=== PATIENT | male | born 1950 | race Caucasian/White ===

== ENCOUNTER 2024-01-12 13:39 | Emergency (ER) | payer MEDICARE, OTHER, SELFPAY ==
[2024-01-12 13:42] VITALS: BP 115/64
[2024-01-12 14:00] LABS: % Basophils 0.9 % (0-2); % Eosinophils 1.7 % (0-6); % Immature Granulocytes 0.4 % (0-0.5); % Lymphocytes 18.6 % (20.5-51.1); % Monocytes 19.9 % (1.7-9.3); % Neutrophils 58.5 % (42.2-75.2); Absolute Eosinophils 0.1 10^3/uL (0-0.7); Absolute Lymphocytes 0.9 10^3/uL (1.2-3.4); Absolute Monocytes 0.9 10^3/uL (0.1-0.6); Absolute Neutrophils 2.7 10^3/uL (1.4-6.5); Hemoglobin 8.5 g/dL (13.0-18.0); Mean Corp Hgb Conc. 32.7 g/dL (33.0-37.0); Mean Corpuscular Hgb 28.4 pg (27.0-31.0); Mean Platelet Volume 9.5 fL (7.4-10.4); Nucleated Red Blood Cells % 0 % (-); Platelet Count 110 10^3/uL (130-400); Red Blood Cell Count 2.99 10^6/uL (4.70-6.10); Red Cell Dist. Width 16.7 % (11.5-14.5); White Blood Cell Count 4.6 10^3/uL (4.8-10.8)
[2024-01-12 14:15] LABS: Ammonia 26 umol/L (9-30)
[2024-01-12 14:22] LABS: ALT (SGPT) 23 U/L (0-50); AST (SGOT) 69 U/L (17-59); Albumin 2.3 g/dl (3.5-5.0); Alkaline Phosphatase 225 U/L (38-126); Blood Urea Nitrogen 18 mg/dl (9-20); Carbon Dioxide 31 mmol/L (22-30); Chloride 99 mmol/L (98-107); Glucose 232 mg/dl (70-99); Potassium 3.5 mmol/L (3.5-5.1); Sodium 132 mmol/L (135-145); Total Bilirubin 2.1 mg/dl (0.2-1.3); Total Protein 5.6 g/dl (6.3-8.2); eGFR > 60.00
[2024-01-12 16:11] VITALS: BP 102/53
--- NOTE | 2024-01-12 16:12 | ED.GENMED ---
History of Present Illness
General
Chief Complaint: Change in Mental Status
Source: patient
Exam Limitations: none
Time Seen by Provider: 01/12/24 15:57
History of Present Illness
History of Present Illness:
See MDM
Past History
Past History
ED Past Medical History: GERD, HTN and NIDDM
ED Past Surgical History: Orthopedic
Social History
Tobacco: Non-smoker
Alcohol: Occasional
Drug: None
Personal:
Living: with family
Employment: Retired
Family History
Family History: Negative Early CAD
Phy Exam
Physical Exam
Physical Exam:
See MDM
Course
Orders/Labs/Results
Orders:
Orders
01/12/24 13:54
Ammonia Urgent
CMP [Comprehensive Metabolic Panel] Urgent
Complete Blood Count/With Diff Urgent
01/12/24 16:07
CT Head W/o Iv Contrast Urgent
Comment:
Reason For Exam: altered
US Abdomen Limited Urgent
Comment:
Reason For Exam: Abd distention, hx ascites
01/12/24 16:11
0.9% Sodium Chloride 1000 ml [Nss] 1,000 ml IV BOLUS
01/12/24 16:19
PTT Urgent
Prothrombin Time Urgent
01/12/24 17:11
Urinalysis Reflex To Culture Urgent
Date Specimen was Collected: 01/12/24
Time Specimen was Collected: 16:39
Abnormal Lab Results
01/12/24 01/12/24 01/12/24
13:54 16:19 17:11
WBC 4.6 L 10^3/uL
(4.8-10.8)
RBC 2.99 L 10^6/uL
(4.70-6.10)
Hgb 8.5 L g/dL
(13.0-18.0)
Hct 26.0 L %
(39.0-52.0)
MCHC 32.7 L g/dL
(33.0-37.0)
RDW 16.7 H %
(11.5-14.5)
Plt Count 110 L 10^3/uL
(130-400)
Absolute Lymphs (auto) 0.9 L 10^3/uL
(1.2-3.4)
Absolute Monos (auto) 0.9 H 10^3/uL
(0.1-0.6)
Lymphocytes % 18.6 L %
(20.5-51.1)
Monocytes % 19.9 H %
(1.7-9.3)
PT 19.0 H Sec
(11.4-14.6)
APTT 52.5 H Sec
(23.4-35.0)
Sodium 132 L mmol/L
(135-145)
Carbon Dioxide 31 H mmol/L
(22-30)
Glucose 232 H mg/dl
(70-99)
Calcium 8.0 L mg/dl
(8.4-10.2)
Total Bilirubin 2.1 H mg/dl
(0.2-1.3)
AST 69 H U/L
(17-59)
Alkaline Phosphatase 225 H U/L
(38-126)
Total Protein 5.6 L g/dl
(6.3-8.2)
Albumin 2.3 L g/dl
(3.5-5.0)
Urine Urobilinogen 2+ A
(Neg - 1+)
01/12/24 13:54
01/12/24 13:54
Vital Signs
Initial and Last Documented VS:
Initial Vital Signs
Temp Pulse Resp BP Pulse Ox
98.4 F 91 18 115/64 94
07/26/24 13:42 01/12/24 13:42 01/12/24 13:42 01/12/24 13:42 01/12/24 13:42
Last Documented Vital Signs
Temp Pulse Resp BP Pulse Ox
98.4 F 91 18 102/53 96
01/12/24 13:42 01/12/24 13:42 01/12/24 13:42 01/12/24 16:11 01/12/24 16:23
MDM/Problems Addressed
Differential Diagnosis Includes:
HPI and MDM Narrative:
73-year-old male presenting with family for evaluation of altered mental status. They have noticed over the past several weeks that he is more tired than normal. He has had increase in visual hallucinations. was initially concerned could
have an elevated ammonia level given his history of [place]. I discussed that he has lab abnormalities but they appear to be chronic for him. Ammonia within normal limits. Given his ongoing issues, seen CT head and urinalysis. I noticed that his
abdomen is distended. It is however nontender. He is afebrile. He has had paracentesis in the past most recently 1 week ago.
indicates that he has not been sleeping well. I discussed that his large ascites is pushing on his diaphragm and likely causing decreased oxygenation due to shallow breaths. I discussed that his altered mental status could be related to this.
He has no clinical evidence of spontaneous bacterial peritonitis
Physical exam
General: Well appearing and non-toxic
HEENT: protecting airway. Dry mucous membranes
Neck: supple
CV: No evidence of cyanosis
Resp: No accessory muscle use
Abd: Distended but nontender
Extremities: No deformities. No leg edema
Neuro: alert
Psych: Normal affect
Skin: Intact
Problems Addressed including Acute and Chronic Conditions affecting care:
1. Altered mental status
Acuity: acute
Prognosis: stable
Details: Likely in the setting of his ongoing medical issues and worsening ascites. Will obtain CT head and urinalysis. Will have IR evaluate for paracentesis
Updates
Throughout his stay in the emergency department, patient has remained well-appearing nontoxic. Family believes this could be age-related but I did discuss my concern for his reaccumulated ascites. Case discussed with interventional radiology. He
has paracentesis does not appear to be emergent. They will reach out to set up of outpatient follow-up appointment. Family comfortable with this plan.
Differential Diagnosis (but not limited to): Ascites, urinary tract infection, metabolic encephalopathy
Testing considered:
Drug therapy (if applicable): OTC meds, please see d/c instruction regarding Rx drugs
Amount and/or Complexity of Data Reviewed
Clinical info obtained from: Patient and
External data reviewed: N/A
Labs I independently reviewed (but not limited to): White blood cell count normal, elevated creatinine and bilirubin which are chronic. Low albumin
Radiology: The CT scan was personally and independently reviewed. In addition, official CT report reviewed.
Pulse Ox: not hypoxic
EKG independently reviewed: N/A
Commercial Credit Analyst: N/A
Critical Care: N/A
Risk of Complication:
Social Determinants of health: Good social support
Discussed with other providers: Interventional radiology
Escalation of Care includes Admit/Obs: After being observed in the Emergency Department, pt stable for discharge.
Occasional wrong word or 'sound a like' substitutions may have occurred due to the inherent limitations of voice recognition software. Read the chart carefully and recognize, using context, where substitutions have occurred.
*Critical Care Note
Total Time (30-74mins, 75-104mins- exclusive of procedures): Not Applicable
ED Attending Note
-
Portions of this chart may have been created with voice recognition software.� Occasional wrong word or��sound alike� substitutions may have occurred due to the inherent limitations of voice recognition software.
Discharge Plan
Departure
Patient Disposition: Home (Routine Discharge)
Date of Disposition: 01/12/24
Time of Disposition: 18:44
Patient with high blood pressure during this ER visit?: No
Discharge Problem:
Altered mental status
Prescriptions:
No Action
omeprazole 20 MG capsule,delayed release(DR/EC)
20 mg PO DAILY
pioglitazone 15 MG tablet
15 mg PO DAILY
tamsulosin 0.4 mg Capsule
0.4 mg PO DAILY
magnesium 250 mg Tablet
250 mg PO DAILY
metoprolol succinate [Toprol XL] 25 mg tablet extended release 24 hr
25 mg PO DAILY Qty: 90 5RF
aspirin 81 mg tablet,chewable
81 mg PO DAILY Qty: 1 0RF
spironolactone 25 mg tablet
25 mg PO DAILY Qty: 1 0RF
rosuvastatin 20 mg tablet
20 mg PO DAILY
furosemide 40 mg tablet
80 mg PO DAILY
furosemide 40 mg tablet
40 mg PO DAILY@1500
ferrous sulfate 325 mg (65 mg iron) tablet
325 mg PO DAILY
cholestyramine (with sugar) 4 gram powder in packet
1 ea PO BID
Xifaxan 550 mg Tablet
550 mg PO BID Qty: 60 0RF
lactulose 20 gram/30 mL solution
20 g PO TID Qty: 1200 0RF
Referrals:
Murphy Ríos DO [Family Provider] -
Activity Restrictions/Additional Instructions:
As we discussed, it is not certain what is causing the increased confusion. The blood work appears to be unchanged from prior and the CT of his head is negative. There is no evidence of urinary tract infection either. I am concerned that fluid
has reaccumulated so quickly. Interventional radiology is aware that you were here today. They will reach out to you this week to set up an appointment for another paracentesis.
Please return for any worsening symptoms.
You may return at any time if you have further concerns.
Please follow up with your doctor at the first available appointment, preferably this week.
Thank you for choosing [facility].
Interventions
Interventions:
*Risk Screen - Suicide Last Done: 01/12/24 16:23
*General Assessment Last Done: 01/12/24 13:45
*Neglect/Abuse Screening Last Done: 01/12/24 16:23
ED- Fall Risk Assessment Last Done: 01/12/24 16:23
*ED COVID-19 Vaccine History Last Done: 01/12/24 13:42
ED- Pulmonary Assessment Last Done: 01/12/24 16:23
ED-Psychological Assessment Last Done: 01/12/24 16:28
ED- Neurological Assessment Last Done: 01/12/24 16:23
ED- Cardiac Assessment Last Done: 01/12/24 16:23
ED Swallowing Screen Last Done: 01/12/24 16:23
Discharge Date and Time
Print Language: LAO
[2024-01-12] MEDS: NSS 1000 IV (16:21)
[2024-01-12 16:22] VITALS: BMI 32.9
[2024-01-12 16:36] LABS: INR 1.61
[2024-01-12 16:37] LABS: APTT 52.5 Sec (23.4-35.0)
[2024-01-12 17:11] VITALS: BP 114/53
[2024-01-12 17:26] LABS: Urine Albumin Negative (Neg - Trace); Urine Bilirubin Negative (Negative); Urine Character Clear (Clear); Urine Color Yellow; Urine Glucose Negative (Negative); Urine Ketone Negative (Negative); Urine Leukocyte Negative (Negative); Urine Nitrite Negative (Negative); Urine Occult Blood Negative (Negative); Urine Urobilinogen 2+ (Neg - 1+)
[2024-01-12 18:11] VITALS: BP 105/51
== END 2024-01-12 19:01 | disposition home or self-care (01) ==
LOC: EMR 13:39
PROVIDERS: Student in an Organized Health Care Education/Training Program; EMERGENCY PHYSICIAN Student in an Organized Health Care Education/Training Program; FAMILY PHYSICIAN Family Medicine
DX: R41.82 Altered mental status, unspecified (principal); K21.9 Gastro-esophageal reflux disease without esophagitis; I10 Essential (primary) hypertension; E11.9 Type 2 diabetes mellitus without complications
CPT/HCPCS: 99284; 96360; 70450; 76705; 80053; 81003; 82140; 85025; 85610; 85730

== ENCOUNTER 2024-01-14 17:20 | Inpatient (IN) | payer MEDICARE, OTHER, SELFPAY ==
[2024-01-14] VITALS (7 sets, daily range): BP systolic 91–109; BP diastolic 49–80; BMI 32.8; BMI 31.5
--- NOTE | 2024-01-14 14:10 | ED.GENMED ---
History of Present Illness
General
Chief Complaint: Change in Mental Status
Time Seen by Provider: 01/14/24 14:10
History of Present Illness
History of Present Illness:
HPI: The patient presents with confusion ongoing and worsening over the period of months. The patient was seen here 2 days ago with only some mild confusion. Family states that his confusion dramatically worsened over the past 48 hours. There has
been no new trauma. is also concerned of his low albumin level the other day. Family is also concerned the patient may require paracentesis as his abdominal distention has been worsening
EXAM:
GENERAL: The patient appears somewhat chronically ill and is encephalopathic
HEENT: Moist oral mucosa, very minimal scleral icterus noted.
CARDIOVASCULAR: No murmurs, normal heart rate, regular rhythm, No chest wall tenderness
PULMONARY: No respiratory distress, breath sounds are clear and equal
ABDOMEN: Soft with no peritoneal signs, no tenderness however moderate distention is noted however I would not characterize this as tense
NEUROLOGIC: Good strength all extremities, no coordination deficits
PSYCHIATRIC: The patient has limited insight and judgment. He does not understand why he is here. He thinks it is January and knows he is at [facility]'�does not realize he is at [facility].
EXTREMITIES: Nontender, no edema, moves all extremities equally
SKIN: Some areas of ecchymosis noted
TIME OF INITIAL ENCOUNTER: 2:15 PM
NUMBER AND COMPLEXITY OF PROBLEMS ADDRESSED AT THE ENCOUNTER
� Chronic conditions affecting care: BELTRAN, aortic stenosis, high blood pressure, hyperlipidemia, diabetes, skin cancer
� Acute Exacerbation and/or Progression of Chronic Illness: This is a subacute but worsening
� Differential Diagnosis includes: Hepatic encephalopathy, anemia, electrolyte abnormality (has been hyponatremic in the past)
AMOUNT AND/OR COMPLEXITY OF DATA TO BE REVIEWED AND ANALYZED
� I performed an independent evaluation of and my interpretation is:
EKG: Sinus 78, IVCD, QRS prolonged
CT:
X-rays:
Laboratory Studies: Potassium 2.9, ammonia normal, hemoglobin 8.2
Other:
� Review of other/old records: The patient was seen here admitted with increased ammonia level in March 2023. MRI brain from 2021 did not show any sign for NPH
� Clinical information was obtained by an independent historian: I spoke to family at bedside including
� Prescriptions/Medications Considered but not given:
� Further testing considered but not performed: Considered CT of the brain however the CT of the brain from 2 days ago was relatively unremarkable.
RISK OF COMPLICATIONS AND/OR MORBIDITY OR MORTALITY OF PATIENT MANAGEMENT
� Social determinants of health affecting care: Lives at home
� Discussion with other providers: I discussed case with Dr. Neal who is not available today for paracentesis. I spoke to Dr. Peterson.
� Escalation of care including admission/observation vs risk of discharge considered: The patient presents with increasing confusion. His ammonia level was normal 2 days ago. Family states he has been compliant with the
lactulose and Xifaxan. He has been having increasing ascites as well in the setting of low albumin. Family also concerned of dementia but knows they will have trouble getting an appointment in the near future.
#1 acute on chronic confusion rapidly worsening in the setting of BELTRAN. Has never been seen by neurology and family is requesting neurology. No evidence of UTI based on studies 2 days ago
#2 heme positive stool with hemoglobin of 8.5 two days ago down from 12.5 in March 2023. However, the patient has had hemoglobins at [place] in the 8 range fairly recently according to . His INR was 1.62 days ago.
#3 worsening ascites�IR not available for paracentesis today; low albumin level
#4 hypokalemia�I have ordered IV and oral replacement and have also ordered magnesium
Past History
Past History
ED Past Medical History: GERD, HTN and NIDDM
ED Past Surgical History: Orthopedic
Social History
Tobacco: Non-smoker
Alcohol: Occasional
Drug: None
Personal:
Living: with family
Employment: Retired
Family History
Family History: Negative Early CAD
Phy Exam
Physical Exam
Physical Exam:
See HPI
Course
Orders/Labs/Results
Orders:
Orders
01/14/24 14:12
0.9% Sodium Chloride 500 ml [Nss] 500 ml IV BOLUS
01/14/24 14:37
Ammonia Urgent
Complete Blood Count/With Diff Urgent
Manual Differential Urgent
01/14/24 14:43
Type+Screen Urgent
01/14/24 14:51
Urinalysis Reflex To Culture Urgent
Date Specimen was Collected: 01/14/24
Time Specimen was Collected: 14:46
01/14/24 15:15
Basic Metabolic Panel Routine
[id number] Routine
Magnesium Routine
Comment: ADD
01/14/24 15:20
Pantoprazole [Protonix IV] 40 mg IV NOW STA
01/14/24 15:59
Potassium Chloride [KCl] 40 meq PO NOW STA
01/14/24 16:01
Add On- LAB Urgent
Tests Added?: magnesium
01/14/24 16:03
Add On- LAB Routine
Tests Added?: magnesium
ECG [Electrocardiogram (*1)] Urgent
Reason for Study: Other
Other Reason for Exam: hypokalemia
EKG- Treatment ONCE
01/14/24 16:13
Potassium Chloride [KCl] 40 meq 0.9% Sodium Chloride 250 ml [Nss] 250 ml IV NOW
Abnormal Lab Results
01/14/24 01/14/24 01/14/24
14:37 14:51 15:15
WBC 4.4 L 10^3/uL
(4.8-10.8)
RBC 2.91 L 10^6/uL
(4.70-6.10)
Hgb 8.2 L g/dL
(13.0-18.0)
Hct 24.6 L %
(39.0-52.0)
RDW 16.7 H %
(11.5-14.5)
Plt Count 98 L 10^3/uL
(130-400)
Lymphocytes (Manual) 18 L %
(20-51)
Monocytes (Manual) 20 H %
(2-9)
Sodium 131 L mmol/L
(135-145)
Potassium 2.9 L mmol/L
(3.5-5.1)
Carbon Dioxide 31 H mmol/L
(22-30)
Glucose 140 H mg/dl
(70-99)
Calcium 7.9 L mg/dl
(8.4-10.2)
Total Bilirubin 2.0 H mg/dl
(0.2-1.3)
Direct Bilirubin 0.7 H mg/dl
(0.0-0.4)
AST 68 H U/L
(17-59)
Alkaline Phosphatase 218 H U/L
(38-126)
Total Protein 5.4 L g/dl
(6.3-8.2)
Albumin 2.2 L g/dl
(3.5-5.0)
Urine Urobilinogen 3+ A
(Neg - 1+)
01/14/24 14:37
01/14/24 15:15
Vital Signs
Initial and Last Documented VS:
Initial Vital Signs
Temp Pulse Resp BP Pulse Ox
98.7 F 79 18 91/50 96
01/14/24 13:41 01/14/24 13:41 01/14/24 13:41 01/14/24 13:41 01/14/24 13:41
Last Documented Vital Signs
Temp Pulse Resp BP Pulse Ox
98.7 F 79 25 109/50 95
01/14/24 13:41 01/14/24 15:45 01/14/24 15:45 01/14/24 15:01 01/14/24 15:45
*Critical Care Note
Total Time (30-74mins, 75-104mins- exclusive of procedures): Not Applicable
ED Attending Note
-
Portions of this chart may have been created with voice recognition software.� Occasional wrong word or��sound alike� substitutions may have occurred due to the inherent limitations of voice recognition software.
Discharge Plan
Departure
Patient Disposition: Admit
Date of Disposition: 01/14/24
Time of Disposition: 16:01
Presentation/result/management discussed w/ accepting MD/DO: Hospitalist
Discharge Problem:
Acute confusion
Prescriptions:
No Action
omeprazole 20 MG capsule,delayed release(DR/EC)
20 mg PO DAILY
pioglitazone 15 MG tablet
15 mg PO DAILY
tamsulosin 0.4 mg Capsule
0.4 mg PO DAILY
magnesium 250 mg Tablet
250 mg PO DAILY
aspirin 81 mg tablet,chewable
81 mg PO DAILY Qty: 1 0RF
rosuvastatin 20 mg tablet
20 mg PO DAILY
furosemide 40 mg tablet
80 mg PO DAILY
ferrous sulfate 325 mg (65 mg iron) tablet
325 mg PO DAILY
Xifaxan 550 mg Tablet
550 mg PO BID Qty: 60 0RF
tramadol 50 mg Tablet
50 mg PO Q6HPRN PRN (Reason: severe pain)
fluoxetine 20 mg Capsule
20 mg PO DAILY
spironolactone 25 mg tablet
25 mg PO NOON
Referrals:
Murphy Ríos DO [Family Provider] -
Interventions
Interventions:
*Risk Screen - Suicide Last Done: 01/14/24 13:41
*General Assessment Last Done: 01/14/24 14:32
*Neglect/Abuse Screening Last Done: 01/14/24 13:41
ED- Fall Risk Assessment Last Done: 01/14/24 13:41
*ED COVID-19 Vaccine History Last Done: 01/14/24 14:32
ED- Pulmonary Assessment Last Done: 01/14/24 14:32
ED- Neurological Assessment Last Done: 01/14/24 14:32
ED Swallowing Screen Last Done: 01/14/24 16:33
Discharge Date and Time
Print Language: BURUNDIAN
[2024-01-14] MEDS: NSS 500 IV (14:46)
[2024-01-14 14:51] LABS: Hematocrit 24.6 % (39.0-52.0); Hemoglobin 8.2 g/dL (13.0-18.0); Mean Corp Hgb Conc. 33.3 g/dL (33.0-37.0); Mean Corpuscular Hgb 28.2 pg (27.0-31.0); Mean Corpuscular Volume 84.5 fL (80.0-94.0); Red Blood Cell Count 2.91 10^6/uL (4.70-6.10); Red Cell Dist. Width 16.7 % (11.5-14.5); White Blood Cell Count 4.4 10^3/uL (4.8-10.8)
[2024-01-14 15:01] LABS: Ammonia 19 umol/L (9-30)
[2024-01-14 15:16] LABS: Urine Albumin Negative (Neg - Trace); Urine Bilirubin Negative (Negative); Urine Character Clear (Clear); Urine Color Yellow; Urine Glucose Negative (Negative); Urine Ketone Negative (Negative); Urine Leukocyte Negative (Negative); Urine Nitrite Negative (Negative); Urine Occult Blood Negative (Negative); Urine Specific Gravity 1.015 (<1.030); Urine Urobilinogen 3+ (Neg - 1+)
[2024-01-14 15:36] LABS: Absolute Neutrophils -Man Diff 2.6 10^3/uL (1.4-6.5); Band Neutrophils 0 % (0-3); Eosinophils 2 % (0-6); Lymphocytes 18 % (20-51); Mean Platelet Volume 9.8 fL (7.4-10.4); Monocytes 20 % (2-9); Pathologist Reviewed No; Platelet Count 98 10^3/uL (130-400); Platelets Checked Yes; Segmented Neutrophils 60 % (42-75)
[2024-01-14 15:37] LABS: Normal RBC Morphology Yes; Total Cells Counted 100
[2024-01-14] MEDS: PROTONIX IV 40 MG IV ×2 (15:41→20:56)
[2024-01-14 15:42] LABS: ALT (SGPT) 22 U/L (0-50); AST (SGOT) 68 U/L (17-59); Albumin 2.2 g/dl (3.5-5.0); Alkaline Phosphatase 218 U/L (38-126); Blood Urea Nitrogen 17 mg/dl (9-20); Calcium 7.9 mg/dl (8.4-10.2); Carbon Dioxide 31 mmol/L (22-30); Chloride 99 mmol/L (98-107); Direct Bilirubin 0.7 mg/dl (0.0-0.4); Estimated Creatinine Clearance 86 ml/min; Glucose 140 mg/dl (70-99); Potassium 2.9 mmol/L (3.5-5.1); Sodium 131 mmol/L (135-145); Total Protein 5.4 g/dl (6.3-8.2); eGFR > 60.00
[2024-01-14] MEDS: KCL 270 MEQ IV (16:25)
--- NOTE | 2024-01-14 16:54 | HPS.HSE ---
Family Physician
-
Family Physician: Murphy Ríos,
Chief Complaint
-
Increasing confusion, abdominal distention
History of Present Illness
73-year-old male with a history of metabolic dysfunction associated steatohepatitis and cirrhosis, presents to the emergency room today with increasing confusion and hallucinations noted by family.
He was seen in the emergency room 2 days ago for similar complaints with negative workup consisting of CT head and urinalysis. Was discharged home with plan for outpatient paracentesis by interventional radiology.
Family brought him back to the hospital today with worsening confusion, visual hallucinations, increasing fatigue, increasing abdominal distention.
Noted to have heme positive stool in the emergency room today.
Was hospitalized recently at [facility] between December 31 to and received a paracentesis then, 3.2 L removed.
His cirrhosis is managed by Dr. Cross at [facility]. His lactulose was discontinued back in August and he was kept on rifaximin alone. The reason for discontinuation was for frequent loose stools.
Medical History
Past Medical History
Past Medical History: Reports Other
Additional Past Medical History:
MASH cirrhosis with ascites
History of hepatic encephalopathy
Pancytopenia
Essential hypertension
DM2
GERD
Restless leg syndrome
Severe aortic stenosis
Hyperlipidemia
Recurrent left pleural effusion
Past Surgical History: Reports Other
Additional Past Surgical History:
TAVR
Rotator cuff repair
Cataract surgery
Carpal tunnel surgery
Bilateral knee replacement
Social History
Tobacco: Non-smoker
Alcohol: None
Drug: None
Personal:
Living: With Family
Family History
Family History: Not pertinent
Allergies / Home Medications
Allergies reflects when Allergies were last updated in [facility].
Home Medications with original date entered in [facility]
Allergy/Medication List:
Allergies
Allergy/AdvReac Type Severity Reaction Status Date / Time
cyclobenzaprine Allergy 'Out of it' Verified 01/14/24 13:41
oxycodone [From OxyContin] Allergy 'Out of it' Verified 01/14/24 13:41
Home Medications
omeprazole 20 mg capsule,delayed release 20 mg PO DAILY Gastrointestinal issue 08/20/15
pioglitazone 15 mg tablet 15 mg PO DAILY Diabetes 07/06/20
aspirin 81 mg chewable tablet 81 mg PO DAILY #1 tab 08/03/22
magnesium 250 mg tablet 250 mg PO DAILY 08/03/22
tamsulosin 0.4 mg capsule 0.4 mg PO DAILY 08/03/22
rosuvastatin 20 mg tablet 20 mg PO DAILY 08/25/22
ferrous sulfate 325 mg (65 mg iron) tablet 325 mg PO DAILY 03/21/23
furosemide 40 mg tablet 80 mg PO DAILY 03/21/23
rifaximin 550 mg tablet (Xifaxan) 550 mg PO BID #60 tabs 03/23/23
fluoxetine 20 mg capsule 20 mg PO DAILY 01/14/24
spironolactone 25 mg tablet 25 mg PO NOON 01/14/24
tramadol 50 mg tablet 50 mg PO Q6HPRN PRN severe pain 01/14/24
Review of Systems
-
History Source: Patient
A 12 point ROS was completed and negative except as noted: Yes
Constitutional: Reports Fatigue
Psych: Reports Audio or Visual Hallucinations
Physical Exam
Vital Signs
Vital Signs
Temp Pulse Resp BP Pulse Ox
98.7 F 79 25 109/50 95
01/14/24 13:41 01/14/24 15:45 01/14/24 15:45 01/14/24 15:01 01/14/24 15:45
Physical Exam
General: Well Developed, Well Nourished, No Apparent Distress and Comfortable
HEENT: NormoCephalic, Anicteric and Moist mucous membranes
Respiratory: Decreased Breath Sounds (Left-sided)
Cardiac: S1/S2 and Regular Rhythm
Breast: Deferred by me
GI: Soft, Non Tender and Distended (Positive fluid wave)
Genito-urinary: Deferred by me
Musculoskeletal: No Clubbing, No Cyanosis and No Edema
Skin: Warm and Dry
Neuro: Awake, Alert and Oriented (Somewhat oriented)
Hematologic/Lymphatic: No Lymphadenopathy
Psych: Calm
Laboratory Results
-
01/14/24 14:37
01/14/24 15:15
Laboratory Results
Total Bilirubin 2.0 mg/dl (0.2-1.3) H 01/14/24 15:15
AST 68 U/L (17-59) H 01/14/24 15:15
ALT 22 U/L (0-50) 01/14/24 15:15
Alkaline Phosphatase 218 U/L (38-126) H 01/14/24 15:15
Impression/Plan
-
Acute/subacute encephalopathy -suspect related to hepatic encephalopathy. Rule out infection. Admit to IMU given hypotension and heme positive stools.
Continue rifaximin, add lactulose. Will use once daily lactulose given family's concern over loose stools with higher doses in the past.
Normal ammonia level does not rule out hepatic encephalopathy.
Subacute GI bleed -heme positive stool noted in the emergency room. Hemoglobin 8.2 today. Baseline hemoglobin unknown but was noted to be 8.5 on Monday. Monitor for now. Consult gastroenterology. IV Protonix ordered.
EGD done in our hospital on August 18, 2022 showed mild antral gastritis, portal hypertensive gastropathy, normal esophagus.
Decompensated cirrhosis (MASH) with ascites -abdominal ultrasound done on 01/11 shows mild to moderate ascites, mostly adjacent to the liver. Consult IR for paracentesis on Monday. Continue furosemide, spironolactone.
Left pleural effusion -chest x-ray to be done today. Consult IR for thoracentesis on Monday.
Pancytopenia -due to underlying cirrhosis. Monitor for now.
Chronic hyponatremia -due to underlying cirrhosis. Fluid restriction ordered.
Hypokalemia -check magnesium. Replete orally.
DM2 with hyperglycemia -I would permanently discontinue pioglitazone given its tendency to cause fluid retention in this patient with recurrent ascites and pleural effusions. Use low resistance NovoLog scale. Can check hemoglobin A1c but may not
be reliable given his chronic anemia.
Essential hypertension -relative hypotension noted. Suspect blood pressure is at baseline.
TAVR
Restless leg syndrome
Hyperlipidemia -on rosuvastatin.
Obesity due to excess calories
Full code
Family updated at the bedside. More than 75 minutes spent reviewing previous records, speaking with family, discussing with consultants, speaking with and examining patient.
[2024-01-14] MEDS: KCL ELIXIR 40 MEQ PO (17:07)
[2024-01-14 17:14] LABS: Magnesium 1.7 mg/dl (1.6-2.3)
[2024-01-14 18:34] LABS: Glucose - Point of Care 171 mg/dl (70-99)
--- NOTE | 2024-01-14 18:44 | PTCARENOTE ---
pt arrived to rm [id number] from ED on stretcher w/ RN present. K rider infusing through R AC IV site. Pt transferred to bed, max assistance. CHG bath completed at this time. Telemetry leads changed. VSS. Full assessment completed. Pt oriented to room.
Brief periods of confusion noted. Pt updated on plan of care. Admission questions asked and answered. Call doshi within reach. Bed alarm activated for pt safety.
[2024-01-14] MEDS: ULTRAM 50 MG PO (20:55)
[2024-01-14] MEDS: DUPHALAC/CHRONULAC 20 GRAMS PO (20:56)
[2024-01-14] MEDS: NSS (PRESERVATIVE FREE) 10 ML IV (20:56)
[2024-01-14] MEDS: XIFAXAN 550 MG PO (20:56)
--- NOTE | 2024-01-14 21:25 | PTCARENOTE ---
Pt able to answer question appropriate, some forgetfulness at times. Pt requested to call to check in. Pt requested RN talk to , while on phone confirmed that Pt does not want cpr and he does have a living will on file with . File
found in review visit, made CRISIS MANAGER aware of full code status does not fabiola with living will and . Will pass on to day shift to verify with in person. Assessment care and vitals as charted.
[2024-01-14 21:28] LABS: Glucose - Point of Care 178 mg/dl (70-99)
[2024-01-15] VITALS (20 sets, daily range): BP systolic 78–148; BP diastolic 44–88; PULSE 83; O2SAT 96; BMI 31.2
[2024-01-15 05:30] LABS: Hemoglobin 7.8 g/dL (13.0-18.0); Mean Corp Hgb Conc. 32.5 g/dL (33.0-37.0); Mean Corpuscular Hgb 27.9 pg (27.0-31.0); Mean Corpuscular Volume 85.7 fL (80.0-94.0); Platelet Count 109 10^3/uL (130-400); Red Cell Dist. Width 16.8 % (11.5-14.5)
[2024-01-15 05:43] LABS: ALT (SGPT) 22 U/L (0-50); AST (SGOT) 69 U/L (17-59); Albumin 2.3 g/dl (3.5-5.0); Alkaline Phosphatase 206 U/L (38-126); Blood Urea Nitrogen 17 mg/dl (9-20); Carbon Dioxide 31 mmol/L (22-30); Chloride 101 mmol/L (98-107); Estimated Creatinine Clearance 84 ml/min; Glucose 121 mg/dl (70-99); LDH 500 U/L (120-246); Potassium 3.6 mmol/L (3.5-5.1); Sodium 132 mmol/L (135-145); Total Protein 5.5 g/dl (6.3-8.2); eGFR > 60.00
[2024-01-15 07:17] LABS: Absolute Neutrophils -Man Diff 3.2 10^3/uL (1.4-6.5); Anisocytosis 1+; Band Neutrophils 0 % (0-3); Eosinophils 1 % (0-6); Hypochromasia 1+; Lymphocytes 21 % (20-51); Monocytes 14 % (2-9); Normal RBC Morphology No; Platelets Checked Yes; Segmented Neutrophils 64 % (42-75)
[2024-01-15 07:18] LABS: Polychromasia Slight; Total Cells Counted 100
[2024-01-15 07:53] LABS: Glucose - Point of Care 127 mg/dl (70-99)
[2024-01-15] MEDS: NOVOLOG FLEXPEN-LOW RESISTANCE SC ×3 (08:17→17:46)
[2024-01-15] MEDS: LASIX 80 MG PO (08:17)
[2024-01-15] MEDS: FLOMAX 0.4 MG PO (08:17)
[2024-01-15] MEDS: CRESTOR 20 MG PO (08:17)
[2024-01-15] MEDS: NSS (PRESERVATIVE FREE) 10 ML IV ×2 (08:18→19:51)
[2024-01-15] MEDS: MAGNESIUM OXIDE 250 MG PO (08:18)
[2024-01-15] MEDS: DUPHALAC/CHRONULAC 20 GRAMS PO (08:18)
[2024-01-15] MEDS: FEOSOL 325 MG PO (08:18)
[2024-01-15] MEDS: PROZAC 20 MG PO (08:18)
[2024-01-15] MEDS: LOW STRENGTH ASPIRIN 81 MG PO (08:18)
[2024-01-15] MEDS: KCL 20 MEQ PO ×2 (08:18→19:51)
[2024-01-15] MEDS: XIFAXAN 550 MG PO ×2 (08:18→19:51)
[2024-01-15] MEDS: PROTONIX IV 40 MG IV ×2 (08:19→19:51)
--- NOTE | 2024-01-15 08:34 | CON.GI ---
Addendum entered and electronically signed by Manasa Bolton DO 01/15/24 14:04:
I saw and examined the patient.
The TIMBER MANAGEMENT PROFESSOR or PA's note was reviewed and I agree with the note.
Comment:
Fred Ann is a 73-year-old male with past medical history of Wright cirrhosis complicated by portal hypertensive gastropathy, hepatic encephalopathy, ascites and recurrent GI bleeding, TAVR, GERD, hypertension admitted with acute encephalopathy
found to be anemic with a hemoglobin of 6, subsequently transfused with 1 units of PRBC. He follows as an outpatient for his decompensated cirrhosis with Dr. Cross. Of note he was recently hospitalized at [facility] from 12 31-01 04 at which
point he had a workup for GI bleeding, EGD with AVMs, was having melena at that time. 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
with cautery. He admits to taking rifaximin twice daily at home, not taking lactulose as he does not like going to the bathroom frequently and feels he cannot leave the house. Admits to having a few days where he did not move his bowels at all
following discharge from [place].
Encephalopathy likely due to noncompliance with lactulose, resume and uptitrate to 2 3 loose bowel movements daily. Continue with twice daily rifaximin treatment. We did stress the importance of the lactulose in addition to the rifaximin to both
patient and his . There are no signs of active GI bleeding, he likely has bruising from his known portal hypertensive gastropathy and AVMs, recently had an endoscopy. He does not have any melena on exam. Will follow-up his posttransfusion CBC
to ensure adequate correction but there is no indication to repeat endoscopy at this time. He has no history of esophageal or gastric varices.
He has recurrent ascites, recent paracentesis at [place] without SBP. Plan for repeat paracentesis today-- please send fluid for: cell count with differential, culture, gram stain, albumin, protein, and cytology. If >4.5L ascitic fluid removed,
patient will need 6-8 g/albumin per L of fluid removed (recommend albumin 25%). Continue diuretics. Daily MELD 3.0 labs. Given probable oozing from GI tract in setting of ascites, recommend SBP prophylaxis. Will assess ascitic fluid panel to
determine if indefinite secondary prophylaxis is indicated.
Original Note:
Consultation
-
Date/Time Consultation Requested: 01/14/241808
Date/Time Consultation Performed: 01/15/24 0810
Requesting Provider: Dr. Peterson
Performing Provider: Dr. Bolton/Fatemeh CHANG
Reason for Consultation: OB pos stool, confusion
Medical History
Chief Complaint / HPI
Chief Complaint: dizziness, sleepiness
History of Present Illness:
&3yo presents with hx WRIGHT cirrhosis, GI bleed, TAVR, GERD, HTN, recent GIB at [facility] from 01/01/2024 through 01/05/2024 as he presented with abdominal distention, confusion and melena. He had a hemoglobin of 6. He was transfused 1 unit
of packed red blood cells given IV infusion and started on oral iron. He had an EGD which per his showed 'AVMs'. The patient was discharged with a hemoglobin in the 'mid sevens'. He also had a paracentesis when he was at [facility].
He had 3.2 L taken off. Per the patient's he had 'no infection'. He has a history of hepatic encephalopathy was on lactulose up until August when he had significant diarrhea. At that time he was placed on Xifaxan 550 mg twice daily. He has
been on this ever since. The patient's states that for the past 3 weeks he has been having hallucinations. She states it started in the evening when she would hear him talking to himself with his hand up to his ear at night. He felt as if he
had a phone up there but he did not. He was talking to people who were not there. This then progressed to constantly this past Monday where it started happening all day. Of note the patient was recently placed on tramadol for back pain which
was new starting last . Prior to this the patient was taking Tylenol Extra Strength 500 mg (1-2) daily. Because of those issues of constant hallucination she brought him to the emergency room. We are asked to evaluate for OB positive
stools. In the past he has a history of anemia with prior transfusion and iron at [facility] prior to TAVR in November 2022. Last DH scope 08/2022 EGD with gastritis, portal HTN gastropathy, Colon 2016 with benign polyp. The patient's states that
[facility] the patient had an EGD, colonoscopy, video capsule study and push enteroscopy that showed GAVE status post APC with small AVMs and duodenal AVM status post cautery. Currently at the present time the patient has no GI complaints.
He was seen and appears awake alert and oriented although he is a poor historian and does not give much insight to his current hospitalization. He does confuse some of his past medical history. He just had a bowel movement which is very solid and
dark brown. Hemoccult was performed by rectal exam. This was dark brown-green stool that was OB positive. The does also state that the patient has no GI complaints and that she brought him in for strictly confusion. She does also state that
his father had a history of sundowning and questionable dementia prior to his passing away at the age of 87. The patient saw a psychiatrist prior to possible transplant evaluation other than that has never needed psychiatric evaluation.
Past Medical History
Past Medical History: Cancer (squamous cell CA), GERD, HTN, NIDDM and Other (WRIGHT cirrhosis )
Past Surgical History: Cardiac (TAVR), Orthopedic (rotator cuff repair, knee surgery, Right TKR, carpel tunnel, left TKR) and Other (cataract sx, carpel tunnel surgery)
Social History
Tobacco: Non-Smoker
Alcohol: Occasional (rare social in past)
Drug: None
Personal:
Living: With Family
Employment: Retired
Family History
Family History: Other (no family hx colon ca or polyps, no family hx liver issues or IBD)
Allergies / Home Medications
Allergy/AdvReac Type Severity Reaction Status Date / Time
cyclobenzaprine Allergy 'Out of it' Verified 01/14/24 13:41
oxycodone [From OxyContin] Allergy 'Out of it' Verified 01/14/24 13:41
�Medication �Instructions �Recorded
omeprazole 20 mg capsule,delayed 20 mg PO DAILY Gastrointestinal 08/20/15
release issue
pioglitazone 15 mg tablet 15 mg PO DAILY Diabetes 07/06/20
aspirin 81 mg chewable tablet 81 mg PO DAILY #1 tab 08/03/22
magnesium 250 mg tablet 250 mg PO DAILY Supplement 08/03/22
tamsulosin 0.4 mg capsule 0.4 mg PO DAILY Urinary Issue 08/03/22
rosuvastatin 20 mg tablet 20 mg PO DAILY High Cholesterol 08/25/22
ferrous sulfate 325 mg (65 mg 325 mg PO DAILY Supplement 03/21/23
iron) tablet
furosemide 40 mg tablet 80 mg PO DAILY Fluid 03/21/23
Retention/Swelling
rifaximin 550 mg tablet (Xifaxan) 550 mg PO BID #60 tabs 03/23/23
fluoxetine 20 mg capsule 20 mg PO DAILY Mental 01/14/24
Health/Anxiety
spironolactone 25 mg tablet 25 mg PO NOON Fluid 01/14/24
Retention/Swelling
tramadol 50 mg tablet 50 mg PO Q6HPRN PRN severe pain 01/14/24
Review of Systems
-
All other systems: A 12 pt ROS was Negative except as stated above in HPI
Vital Signs
Temp Pulse Resp BP Pulse Ox
98.2 F 82 14 107/66 95
01/15/24 07:19 01/15/24 08:00 01/15/24 08:00 01/15/24 07:48 01/15/24 08:00
Physical Exam
Exam
General: No Apparent Distress
HEENT: Anicteric
Respiratory: Clear (Decreased on the left)
Cardiac: Regular Rhythm
GI: Soft, Non Tender, Non Distended and Normal Bowel Sounds
Rectal: Hem Positive (Dark brown/green stool)
Musculoskeletal: No Edema
Skin: Warm and Dry
Neuro: AO x 3 (Although poor historian and cannot give accurate information, no asterixis)
Psych: Calm
Results
WBC 5.0 10^3/uL (4.8-10.8) 01/15/24 04:57
Hgb 7.8 g/dL (13.0-18.0) L 01/15/24 04:57
Hct 24.0 % (39.0-52.0) L 01/15/24 04:57
MCV 85.7 fL (80.0-94.0) 01/15/24 04:57
Plt Count 109 10^3/uL (130-400) L 01/15/24 04:57
Sodium 132 mmol/L (135-145) L 01/15/24 04:57
Potassium 3.6 mmol/L (3.5-5.1) 01/15/24 04:57
Chloride 101 mmol/L (98-107) 01/15/24 04:57
Carbon Dioxide 31 mmol/L (22-30) H 01/15/24 04:57
BUN 17 mg/dl (9-20) 01/15/24 04:57
Creatinine 0.8 mg/dL (0.7-1.3) 01/15/24 04:57
Calcium 8.0 mg/dl (8.4-10.2) L 01/15/24 04:57
Total Bilirubin 2.0 mg/dl (0.2-1.3) H 01/15/24 04:57
AST 69 U/L (17-59) H 01/15/24 04:57
ALT 22 U/L (0-50) 01/15/24 04:57
Alkaline Phosphatase 206 U/L (38-126) H 01/15/24 04:57
Diagnostic Image Results:
01/12/24 US Abd:
FINDINGS/impression:
There is ascites, which is quantitatively assessed at mild to moderate, mostly adjacent liver.
Incidental note is made of a large left pleural effusion.
CT Head 01/12/24:
No acute intracranial abnormality noted.
Prior GI Procedures:
11/2022 ' [facility] per EGD, colonoscopy, VCE, push enteroscopy showing GAVE status post APC, small AVM in duodenal cautery'
EGD: 08/2022- [facility] - no esophagitis,stenosis or varices � - Normal esophagus.
�� � � � � � � � � � � - Z-line regular, 39 cm from the incisors.
�� � � � � � � � � � � - Mild antral gastritis. Biopsied for Helicobacter
�� � � � � � � � � � � pylori testing. .
�� � � � � � � � � � � - Portal hypertensive gastropathy.
�� � � � � � � � � � � - Normal examined duodenum. Biopsied for evaluation of
�� � � � � � � � � � � celiac disease.
bx neg reactive gastropathy, neg H pylori, neg SB bx
Colonoscopy: 2015 [facility] �- One 8 mm polyp in the sigmoid colon. Resected and
�� � � � � � � � � � retrieved.
�� � � � � � � � � � - The examined portion of the ileum was normal.
bx benign lymphoid aggregate
Assessment / Plan
-
&3yo presents with hx WRIGHT cirrhosis, GI bleed, TAVR, GERD, HTN, recent GIB at [facility] from 01/01/2024 through 01/05/2024 as he presented with abdominal distention, confusion and melena. He had a hemoglobin of 6. He was transfused 1 unit
of packed red blood cells given IV infusion and started on oral iron. He had an EGD which per his showed 'AVMs'. The patient was discharged with a hemoglobin in the 'mid sevens'. He also had a paracentesis when he was at [facility].
He had 3.2 L taken off. Per the patient's he had 'no infection'. He has a history of hepatic encephalopathy was on lactulose up until August when he had significant diarrhea. At that time he was placed on Xifaxan 550 mg twice daily. He has
been on this ever since. The patient's states that for the past 3 weeks he has been having hallucinations. She states it started in the evening when she would hear him talking to himself with his hand up to his ear at night. He felt as if he
had a phone up there but he did not. He was talking to people who were not there. This then progressed to constantly this past Monday where it started happening all day. Of note the patient was recently placed on tramadol for back pain which
was new starting last . Prior to this the patient was taking Tylenol Extra Strength 500 mg (1-2) daily. Because of those issues of constant hallucination she brought him to the emergency room. We are asked to evaluate for OB positive
stools and confusion.
Impression:
Confusion/hallucinations/history hepatic encephalopathy-> only on Xifaxan 550 mg BID since August. Started Tramadol on . + constipation.
OB positive stool, recent EGD evaluation at [facility] -> 'AVMs' with 'Hgb 6-> mid 7s' given 1 unit PRBC, IV iron and po iron started (12/31-01/04/23), was having melena during that time.
MASH cirrhosis
History of GAVE/duodenal AVM
Chronic anemia
Pleural effusion (left)
History of TAVR
Plan:
-Agree with starting and continuing lactulose 20 g daily. May consider going up to twice daily to keep bowel movements soft/daily especially in light of starting tramadol. With changes in mental status will leave tramadol decision up to internal
medicine.
-Continue Xifaxan 550 mg p.o. twice daily
-Continue PPI. Was on omeprazole 20 mg p.o. daily at home
-Okay to continue aspirin 81 mg daily
-Okay to continue oral iron
-Continue Lasix and Aldactone
-No plans on endoscopic intervention at this time
-Will obtain records from [facility] for recent admission as well as records from Dr. Cross over the past 18 months. keeps very diligent records.
-Okay for diet per GI
-Follow-up with Dr. Cross as an outpatient.
-Further recommendations to be forthcoming
-
-
Thank you for consultation and allowing me to participate in the patient's care. Please call the legislative correspondent GI physician during the after hours with any questions or concerns.
[2024-01-15 08:36] LABS: Glycohemoglobin (HgbA1c) 5.4 % (4.0-5.6)
[2024-01-15] MEDS: ULTRAM 50 MG PO ×2 (09:13→19:51)
--- NOTE | 2024-01-15 11:08 | CM ---
CM met with pt, spouse and dtr bedside
[facility]
No steps to enter or throughout [facility]
Pt is independent with ambulation and all his care needs
He has a WW and SPC for use if needed
He has hx with [facility] and denies SNF hx
Pt has Part D plan through [facility] and no financial insecurities
PCP- Murphy Ríos
Rx- [facility]
PT/OT orders placed and pending
Discharge Disposition- home, follow for VN needs
[2024-01-15 11:54] LABS: Glucose - Point of Care 201 mg/dl (70-99)
[2024-01-15] MEDS: ALDACTONE 25 MG PO (12:11)
[2024-01-15 14:40] LABS: Body Fluid Mononuclear 81.4 %; Body Fluid Polymorphonuclear 18.6 %; Body Fluid WBC 339 /CUMM
[2024-01-15 14:41] LABS: Body Fluid Second Tech AMA
[2024-01-15 15:03] LABS: Body Fluid Albumin < 1.0 g/dl; Body Fluid Glucose 170 mg/dl; Body Fluid LDH 128 U/L; Body Fluid Protein < 2.0 g/dl
--- NOTE | 2024-01-15 15:55 | W.PN.HOSP.TC ---
Today's Communication/Plan
-
For paracentesis
Lactulose titration to 2-3BM daily
Continue rifaximin
GI eval
CXR in the AM
Assessment / Plan
Assessment / Plan
NAD, resting comfortably in bed
Scleral anicteric
Moist mucous membranes
JVD
CTA bilateral
Normal S1-S2 no murmurs
Soft nontender distended abdomen fluid wave bowel sounds active
No peripheral pitting edema
Moves extremities spontaneously
AAOx3
Hepatic encephalopathy. Continue lactulose for goal bowel movements 2-3 daily. Continue rifaximin. Stressed importance of both agents to daughter and Mr. Ann.
Decompensated cirrhosis presenting with hepatic encephalopathy and ascites. Continue lactulose rifaximin IR consult for paracentesis. Obtain fluid studies cytology culture.
If requires greater than more than 4.5 L removed would provide 1 albumin back for every liter removed. Please see GI notes for recommendation.
Continue Aldactone and Lasix. Will discuss with GI increasing Aldactone dose
He will need to follow up with Hepatology as an outpatient
Pleural effusion noted on abdominal ultrasound. Will obtain chest x-ray to formally evaluate. Expect related to ascites and would improve with drainage of ascitic fluid via paracentesis. Also on Lasix. We will repeat/obtain chest x-ray in the
a.m. to further evaluate. If still present then can consult IR for potential thoracentesis however should be noted he is asymptomatic from this and not requiring supplemental oxygen
Pancytopenia secondary to underlying cirrhosis. Monitor for now. Outpatient hematology follow-up
Chronic hyponatremia due to underlying cirrhosis. Fluid restrict.
Hypokalemia improved this a.m.
Diabetes type 2 with hyperglycemia. Will consult endocrinology as I do agree with Dr. Peterson that pioglitazone is not an ideal oral hypoglycemic for him due to fluid retention.
HLD continue statin
Anticipated Discharge: 24 - 48 hours
Subjective/Interval History
-
Date of Service: January 15, 2024
Seen and examined. No new complaints. No acute overnight events.
Daughter at bedside tells me and that his mental status has improved significantly.
I would have to agree that he seems to be back at baseline as he is very sarcastic and he is in good spirits and laughing.
Objective Data
-
Labs:
Laboratory Results
01/15/24
04:57
WBC 5.0
Hgb 7.8 L
Hct 24.0 L
Plt Count 109 L
Sodium 132 L
Potassium 3.6
Chloride 101
Carbon Dioxide 31 H
BUN 17
Creatinine 0.8
Glucose 121 H
Calcium 8.0 L
Total Bilirubin 2.0 H
AST 69 H
ALT 22
Alkaline Phosphatase 206 H
Vital Signs:
Vital Signs
Temp Pulse Resp BP Pulse Ox
98.1 F 72 17 89/62 94
01/15/24 13:30 01/15/24 14:15 01/15/24 14:15 01/15/24 14:15 01/15/24 13:30
I&O
01/14/24 01/15/24 01/16/24
06:59 06:59 06:59
Intake Total 240 / 240 240 / 240
Output Total 200 / 200
Balance 40 / 40 240 / 240
[2024-01-15 17:56] LABS: Glucose - Point of Care 129 mg/dl (70-99)
--- NOTE | 2024-01-15 22:33 | PTCARENOTE ---
Patient received overnight, cooperative with care, assist to bathroom to void.
[2024-01-15 23:24] LABS: Glucose - Point of Care 144 mg/dl (70-99)
[2024-01-16] VITALS (17 sets, daily range): BP systolic 92–144; BP diastolic 45–124; PULSE 82; BMI 30.3
[2024-01-16 04:35] LABS: Hemoglobin 7.9 g/dL (13.0-18.0); Mean Corp Hgb Conc. 32.9 g/dL (33.0-37.0); Mean Corpuscular Volume 85.1 fL (80.0-94.0); Mean Platelet Volume 11.3 fL (7.4-10.4); Platelet Count 114 10^3/uL (130-400); Red Blood Cell Count 2.82 10^6/uL (4.70-6.10); Red Cell Dist. Width 16.8 % (11.5-14.5)
[2024-01-16 04:48] LABS: ALT (SGPT) 22 U/L (0-50); AST (SGOT) 68 U/L (17-59); Albumin 2.4 g/dl (3.5-5.0); Alkaline Phosphatase 224 U/L (38-126); Blood Urea Nitrogen 18 mg/dl (9-20); Carbon Dioxide 30 mmol/L (22-30); Chloride 101 mmol/L (98-107); Estimated Creatinine Clearance 83 ml/min; Glucose 124 mg/dl (70-99); Potassium 3.9 mmol/L (3.5-5.1); Sodium 132 mmol/L (135-145); Total Bilirubin 2.3 mg/dl (0.2-1.3); Total Protein 5.7 g/dl (6.3-8.2); eGFR > 60.00
[2024-01-16 04:57] LABS: INR 1.57; PT 18.6 Sec (11.4-14.6)
[2024-01-16 04:58] LABS: APTT 45.2 Sec (23.4-35.0)
--- NOTE | 2024-01-16 08:49 | W.PN.GI.CBS2 ---
Addendum entered and electronically signed by Manasa Bolton DO 01/16/24 16:27:
I saw and examined the patient.
The BESSEMER REGULATOR or PA's note was reviewed and I agree with the note.
Comment: Fred Ann was seen in follow-up this morning. On initial evaluation he was very confused, very difficult to understand and appeared to be hallucinating. At first, there was some concern for stroke, however after a full neurologic
assessment he did seem to have some facial twitching which was initially thought to be due to electrolyte abnormality. After about 15 minutes, mentation returned to baseline.
#Decompensated MASH cirrhosis complicated by hepatic encephalopathy, ascites, thrombocytopenia, portal hypertensive gastropathy, history of GI bleeding secondary to AVMs admitted with encephalopathy secondary to medication noncompliance.
-s/p paracentesis yesterday-- no evidence of SBP
-uptitrate lactulose to 2-3 loose BMs daily
-continue Xifaxin BID
-continue lasix/aldactone--patient is actually not on Aldactone as an outpatient due to tender gynecomastia, only on Lasix 80 mg daily. Can continue while inpatient but I do not think he will be amenable upon discharge.
-monitor electrolytes closely
-neurology evaluating-- EEG w/o epileptic activity
-follows with Dr. Cross-- not a LT candidate due to CAD w/ 50% lesion LAD
-current MELD 3.0 = 19 (previously 15 at last office appointment with Dr. Cross, 11/22/23
#Hx GI Bleed
-EGD, enteroscopy and colonoscopy 11/2022: At [place], no varices, APC for GAVE and AVMs in duodenum. Colonic diverticulosis and 1 small polyp.
-repeat EGD at [facility] ~10 days ago, AVMs were treated with APC, no evidence of varices
-hemoglobin stable, no signs of GI bleeding
#Renal Cell Carcinoma
-incidentally noted on outpatient MRI 07/2023-- being seen by urology at [place]
#Left pleural effusion
-also noted on outpatient MRI in 07/2023
-IR consulted for thoracentesis
Addendum entered and electronically signed by CHARLENE Stokes 01/16/24 09:42:
-Add Ceftriaxone 1 gm IV daily for prophylaxis for SBP. Paracentesis yesterday without SBP.
Original Note:
Today's Communication / Plan
-
as per plan
Increase Lactulose BID
Assessment / Plan
-
&3yo presents with hx BELTRAN cirrhosis, GI bleed, TAVR, GERD, HTN, recent GIB at [facility] from 01/01/2024 through 01/05/2024 as he presented with abdominal distention, confusion and melena. He had a hemoglobin of 6. He was transfused 1 unit
of packed red blood cells given IV infusion and started on oral iron. He had an EGD which per his showed 'AVMs'. The patient was discharged with a hemoglobin in the 'mid sevens'. He also had a paracentesis when he was at [facility].
He had 3.2 L taken off. Per the patient's he had 'no infection'. He has a history of hepatic encephalopathy was on lactulose up until August when he had significant diarrhea. At that time he was placed on Xifaxan 550 mg twice daily. He has
been on this ever since. The patient's states that for the past 3 weeks he has been having hallucinations. She states it started in the evening when she would hear him talking to himself with his hand up to his ear at night. He felt as if he
had a phone up there but he did not. He was talking to people who were not there. This then progressed to constantly this past Monday where it started happening all day. Of note the patient was recently placed on tramadol for back pain which
was new starting last . Prior to this the patient was taking Tylenol Extra Strength 500 mg (1-2) daily. Because of those issues of constant hallucination she brought him to the emergency room. We are asked to evaluate for OB positive
stools and confusion.
Impression:
Confusion/hallucinations/history hepatic encephalopathy-> only on Xifaxan 550 mg BID since August. Started Tramadol on . + constipation.-> Added Lactulose on 01/15/24 with BMs
OB positive stool, recent EGD evaluation at [facility] -> 'AVMs' with 'Hgb 6-> mid 7s' given 1 unit PRBC, IV iron and po iron started (12/31-01/04/23), was having melena during that time.
MASH cirrhosis
History of GAVE/duodenal AVM
Chronic anemia
Pleural effusion (left)
History of TAVR
Plan:
-Neurology consultation appreciated.
-Await Mag and Phos levels
-Continue Lactulose, can increase to BID. Hold if greater than 3 BMs daily.
-Trend labs.
-Continue Xifaxan 550 mg p.o. twice daily
-Continue PPI. Was on omeprazole 20 mg p.o. daily at home
-Okay to continue aspirin 81 mg daily
-Okay to continue oral iron
-Continue Lasix and Aldactone
-No plans on endoscopic intervention at this time
-Will obtain records from [facility] for recent admission as well as records from Dr. Cross over the past 18 months. keeps very diligent records.
-Okay for diet per GI
-Follow-up with Dr. Cross as an outpatient.
-Further recommendations to be forthcoming
Subjective
Subjective
Date of Service: January 16, 2024
Patient seen at approx 0825 and had active fasciculations of all extremities and face/head. Garbled speech. He was also actively hallucinating and mimicked opening a beverage can that was not there and tried to appear to drink this. A FAST Stroke
assessment was performed at bedside and Medicine Attending was called to room to evaluate patient. He came to bedside immediately. For me the patient had B/L upper and lower extremity 5/5 strength. No pronator drift. + Facial symmetry. + Garbled
speech. When left side of face was touched patient had significant left facial twitching and torsion and appeared to have Chvostek sign for approximately 5-10 seconds. Patient does have contusion on left lateral side of tongue as well. At that time
BP was 90/30. Patient seen again in the presence of IM and again with Neurology with improvement of speech and no further fasciculations that were present 1 hr earlier. Patient giving appropriate answers at this time. Patient had BM with Lactulose.
Continues on Xifaxan. Paracentesis negative for SBP however will cover with ppx abx. Hgb stable at 7.9 (7.8), normal BUN without rise. Calcium 8.0 with corrected calcium of 9.3. LFTs stable T Bili 2.3 (2.0) ASR 68 (69), ALT 22 (22), Alk Phos 224
(206).
Objective
Data Reviewed
Laboratory Data:
Laboratory Results
01/16/24 04:22
01/16/24 04:22
Laboratory Results
PT 18.6 Sec (11.4-14.6) H 01/16/24 04:22
INR 1.57 01/16/24 04:22
APTT 45.2 Sec (23.4-35.0) H 01/16/24 04:22
Magnesium 1.7 mg/dl (1.6-2.3) 01/14/24 15:15
Total Bilirubin 2.3 mg/dl (0.2-1.3) H 01/16/24 04:22
AST 68 U/L (17-59) H 01/16/24 04:22
ALT 22 U/L (0-50) 01/16/24 04:22
Alkaline Phosphatase 224 U/L (38-126) H 01/16/24 04:22
Vital Signs and I&O:
Vital Signs
Temp Pulse Resp BP Pulse Ox
98.1 F 109 19 139/124 95
01/16/24 04:01 01/16/24 06:06 01/16/24 06:06 01/16/24 06:06 01/15/24 16:00
I&O
01/15/24 01/16/24 01/17/24
06:59 06:59 06:59
Intake Total 240 / 240 1080 / 1080
Output Total 200 / 200
Balance 40 / 40 1080 / 1080
Physical Exam
Physical Exam
HEENT: Anicteric and Other (contusion left lateral tongue)
Cardiology: Normal Sinus Rhythm
Pulmonary: Clear (anterior )
GI: Soft, Non Distended, Non Tender and Normal Bowel Sounds
Extremities: No Edema
Neuro: Other ( at 0820 B/L upper and lower extremity 5/5 strength. No pronator drift. + Facial symmetry. + Garbled speech. When left side of face was touched patient had significant left facial twitching and torsion and appeared to have Chvostek
sign for approximately 5-10 seconds. )
--- NOTE | 2024-01-16 09:13 | CON.NEURO4 ---
Addendum entered and electronically signed by Raimundo Hebert MD 01/16/24 15:09:
Studies reviewed.
I have personally examined the patient. I reviewed and agree with the MARKETING RESEARCHER's Note.
My addenda:
Awake, alert, interactive. No acute distress.
Speech initially clear, becoming slurred with prolonged communication
Follows 2-step requests w/ mild to moderate difficulty. No tremor.
Extra-ocular movements grossly intact.
Facial movements full and symmetric. Hearing intact to normal conversational volume.
Normal UE movements bilaterally.
Neck: full ROM.
Chest: no dyspnea
Heart: no JVD
Ext: (-) Clubbing, (-) Cyanosis, (-) Edema
IMPRESSIONS/RECOMMENDATIONS:
Abrupt onset of recurrent confusion and worsening hallucinations beginning weeks and months prior to this hospitalization
There currently is no evidence of hepatic encephalopathy based on unremarkable ammonia levels, rechecked by this examiner, today
Patient may have an underlying encephalopathy which was intermittently present in 2021
Check additional blood work for potential metabolic abnormalities include pneumonia (completed)
Provide thiamine
Speech therapy evaluation
Outpatient neuropsychological testing
Check EEG for completeness
D/W patient / family / nursing
All questions answered.
Will continue to follow patient.
Original Note:
Consultation - Neurology 4
-
CONSULTING PHYSICIAN: Raimundo Hebert MD
REFERRING PHYSICIAN: Hospitalists/Dr. Jones
DICTATED BY: CHARLENE Meneses
DATE/TIME OF REQUEST: 01/16/24
DATE/TIME OF CONSULTATION: 01/16/24
Reason for Consultation: Concern for seizure
History of Present Illness:
This is a 73-year-old male with a PMH of MASH cirrhosis with ascites who has presented to the hospital on 01/14/24 with report of increasing confusion and hallucinations starting about 3 weeks ago. This information is obtained mostly from medical
records as the patient is confused. He reportedly discontinued his lactulose in August 2023 due to frequent loose stools but he continued taking his rifaxamin. Patient was recently hospitalized at [facility] from 01/01/24-01/05/24 during which he underwent
paracentesis, 3.2L fluid removed. He was evaluated at on 01/12/24 for report of confusion and hallucinations and then returned again on 01/14/24 when his symptoms persisted and he was fatigued with abdominal distention. Family reports some short
term memory concerns prior to recent events, 'sundowning' behavior in the evenings, and poor sleep at baseline due to acting out his dreams. Today (01/16/24), patient was noted to have diffuse body fasciculations, new onset garbled speech, acting out
hallucinations, and left facial twitching/torsion to touch. His tongue was then noted to have a hematoma on the left lateral aspect. Currently, patient is tremulous and speech is garbled. He is alert and oriented x3 with +hallucinations. He denies
any headache, dizziness, vision changes, swallowing difficulty, numbness, weakness, chest pain, palpitations, and shortness of breath.
Past Medical History: [facility] cirrhosis with ascites, HTN, HLD, NIDDM, GERD, RLS, aortic stenosis, recurrent left pleural effusion, pancytopenia
Surgical History: TAVR, b/l cataract removal, b/l carpal tunnel release, b/l TKR, RTC repair, left thoracentesis, paracentesis
Family History: Father- dementia.
Social History: Former smoker. Denies alcohol and illicit drug use.
Allergies: Cyclobenzaprine, oxycodone.
Home Medications: See below.
Review of Symptoms:
Patient denies any fever, headache, chest pain, shortness of breath, GI or symptoms.
�Per the HPI.�All systems are reviewed negative except above.
Physical Exam:
The patient is afebrile, abdomen is nondistended, breathing is unlabored, skin is warm, scattered ecchymosis, no edema. Left lateral tongue hematoma.
Neurologic Examination:
The patient is awake, alert and oriented x 3. +Hallucinations, thinking his daughter is in the room. He is able to follow commands and answer questions some appropriately. There is no aphasia. Speech is garbled. On cranial nerve assessment, pupils
are 3 mm bilateral, round and reactive to light and accommodation. Visual colvin are full. Extraocular movements are intact. Facial sensations are intact and bilaterally symmetrical, there is no facial asymmetry. Hearing is intact bilaterally to
normal conversation volume. Tongue palate and uvula are midline. Left lateral tongue hematoma. Sternocleidomastoid strengths are full bilaterally. Motor strengths are 5/5 bilateral upper and lower extremities on medical research [place] scale. There
is no drift. Mild asterixis noted. Deep tendon reflexes are 1+ bilateral upper and lower extremities and Babinski is absent bilaterally. There was no extinction noted on double simultaneous stimulation. Coordination is intact by finger to nose
bilaterally.
Lab Results: See below.
Neuro Imaging:
1. CT Head 01/12/24: No acute intracranial abnormality noted.
Differentials for the patient's presentation include:
1. Hepatic encephalopathy and delirium likely producing mental status change/hallucinations.
2. Metabolic derangement likely producing abnormal body movements this morning but cannot exclude seizure activity.
Patient has the following risk factors for their symptoms: MASH cirrhosis with ascites,
Recommendations:
-Routine EEG pending.
-Hold fluoxetine and avoid sedating medications. Promote appropriate sleep/wake cycles- limit night time awakenings and avoid day time napping. Promote adequate daylight exposure.
-Checking blood work for metabolic abnormalities.
-Patient may benefit from outpatient neuropsychological testing due to concern of acting things out during sleep, ing, and chronic short term memory issues.
-ST evaluation.
Discussed patient care with: Dr. Hebert, the patient
Vital Signs and Labs
-
Vital Signs and Labs:
Vital Signs
Temp Pulse Resp BP Pulse Ox
98.1 F 109 19 139/124 95
01/16/24 04:01 01/16/24 06:06 01/16/24 06:06 01/16/24 06:06 01/15/24 16:00
Lab Results
07/30/24 04:22
01/16/24 04:22
PT 18.6 Sec (11.4-14.6) H 01/16/24 04:22
INR 1.57 01/16/24 04:22
APTT 45.2 Sec (23.4-35.0) H 01/16/24 04:22
Sodium 132 mmol/L (135-145) L 01/16/24 04:22
Potassium 3.9 mmol/L (3.5-5.1) 01/16/24 04:22
BUN 18 mg/dl (9-20) 01/16/24 04:22
Glucose 124 mg/dl (70-99) H 01/16/24 04:22
Calcium 8.0 mg/dl (8.4-10.2) L 01/16/24 04:22
Phosphorus 2.6 mg/dl (2.5-4.5) 01/16/24 04:22
Medications
-
Active Medications
Generic Name Dose Route Start Last Admin
Trade Name Freq PRN Reason Stop Dose Admin
Aspirin 81 mg 01/15/24 08:00 01/15/24 08:18
Aspirin 81 Mg Chewable Tablet PO 02/12/24 07:59 81 mg
DAILY JOE Administration
Ceftriaxone Sodium 2,000 mg 01/16/24 10:00
Ceftriaxone 2,000 Mg/20 Ml Vial IV
Q24H JOE
Dapagliflozin 10 mg 01/16/24 08:00
Dapagliflozin (Farxiga) 10 Mg Tablet PO 02/13/24 07:59
DAILY JOE
Dextrose 12.5 grams 01/14/24 18:05
Dextrose 50% (0.5 Grams/Ml) 50 Ml Syringe IV 02/11/24 18:04
[id number] PRN
hypoglycemia
Protocol
Ferrous Sulfate 325 mg 01/15/24 08:00 01/15/24 08:18
Ferrous Sulfate 325 Mg Tablet PO 02/12/24 07:59 325 mg
DAILY JOE Administration
Fluoxetine HCl 20 mg 01/15/24 08:00 01/15/24 08:18
Fluoxetine 20 Mg Capsule PO 02/12/24 07:59 20 mg
DAILY JOE Administration
Furosemide 80 mg 01/15/24 08:00 01/15/24 08:17
Furosemide 80 Mg Tablet PO 02/12/24 07:59 80 mg
DAILY JOE Administration
Glucagon 1 mg 01/14/24 18:05
Glucagon 1 Mg Vial IM 02/11/24 18:04
PRN PRN
hypoglycemia
Protocol
Albumin Human 25 grams in 100 mls @ 60 mls/hr 01/16/24 09:00
Flexbumin IV 01/16/24 18:39
Q2H JOE
Insulin Aspart 0 units 01/15/24 07:30 01/15/24 17:46
Insulin Aspart Low Resistance 300 Units/3 Ml Pen.Injctr SC 02/12/24 07:29 Not Given
AC JOE
Protocol
Lactulose 20 grams 01/14/24 18:05 01/15/24 08:18
Lactulose Solution (20 Grams/30 Ml) 30 Ml Cup PO 02/11/24 18:04 20 grams
DAILY JOE Administration
Magnesium Oxide 250 mg 01/15/24 08:00 01/15/24 08:18
Magnesium Oxide 500 Mg Tablet PO 02/12/24 07:59 250 mg
DAILY JOE Administration
Pantoprazole Sodium 40 mg 01/14/24 20:00 01/15/24 19:51
Pantoprazole Sodium 40 Mg/10 Ml Vial IV 02/11/24 19:59 40 mg
Q12 JOE Administration
Potassium Chloride 20 meq 01/15/24 08:00 01/15/24 19:51
Potassium Chloride 20 Meq Extended Release Tablet PO 02/12/24 07:59 20 meq
BID JOE Administration
Rifaximin 550 mg 01/14/24 20:00 01/15/24 19:51
Rifaximin 550 Mg Tablet PO 550 mg
BID JOE Administration
Rosuvastatin Calcium 20 mg 01/15/24 08:00 01/15/24 08:17
Rosuvastatin (Crestor) 20 Mg Tablet PO 02/12/24 07:59 20 mg
DAILY JOE Administration
Sodium Chloride 0 flush 01/14/24 19:00
Sodium Chloride 0.9% (Flush) Syringe IV 02/11/24 18:59
PER PROTOCOL JOE
Sodium Chloride 10 ml 01/14/24 20:00 01/15/24 19:51
Sodium Chloride 0.9% (Preservative Free) 10 Ml Vial IV 02/11/24 19:59 10 ml
Q12 JOE Administration
Spironolactone 25 mg 01/15/24 12:00 01/15/24 12:11
Spironolactone 25 Mg Tablet PO 02/12/24 11:59 25 mg
NOON JOE Administration
Sterile Water 20 ml 01/16/24 10:00
Sterile Water For Injection 20 Ml Vial IV 02/13/24 09:59
Q24H JOE
Tamsulosin HCl 0.4 mg 01/15/24 08:00 01/15/24 08:17
Tamsulosin 0.4 Mg Capsule PO 02/12/24 07:59 0.4 mg
DAILY JOE Administration
Tramadol HCl 50 mg 01/14/24 18:05 01/15/24 19:51
Tramadol Hcl 50 Mg Tablet PO 02/11/24 18:04 50 mg
Q6HPRN PRN Administration
severe pain
Home Medications
�Medication �Instructions �Recorded
omeprazole 20 mg capsule,delayed 20 mg PO DAILY Gastrointestinal 08/20/15
release issue
pioglitazone 15 mg tablet 15 mg PO DAILY Diabetes 07/06/20
aspirin 81 mg chewable tablet 81 mg PO DAILY #1 tab 08/03/22
magnesium 250 mg tablet 250 mg PO DAILY Supplement 08/03/22
tamsulosin 0.4 mg capsule 0.4 mg PO DAILY Urinary Issue 08/03/22
rosuvastatin 20 mg tablet 20 mg PO DAILY High Cholesterol 08/25/22
ferrous sulfate 325 mg (65 mg 325 mg PO DAILY Supplement 03/21/23
iron) tablet
furosemide 40 mg tablet 80 mg PO DAILY Fluid 03/21/23
Retention/Swelling
rifaximin 550 mg tablet (Xifaxan) 550 mg PO BID #60 tabs 03/23/23
fluoxetine 20 mg capsule 20 mg PO DAILY Mental 01/14/24
Health/Anxiety
spironolactone 25 mg tablet 25 mg PO NOON Fluid 01/14/24
Retention/Swelling
tramadol 50 mg tablet 50 mg PO Q6HPRN PRN severe pain 01/14/24
[2024-01-16 09:16] LABS: Magnesium 1.6 mg/dl (1.6-2.3); Phosphorus 2.6 mg/dl (2.5-4.5)
[2024-01-16] MEDS: NOVOLOG FLEXPEN-LOW RESISTANCE SC ×2 (09:24→16:55)
[2024-01-16] MEDS: MAGNESIUM OXIDE 250 MG PO (09:33)
[2024-01-16] MEDS: DUPHALAC/CHRONULAC 20 GRAMS PO ×2 (09:33→20:31)
[2024-01-16 09:34] LABS: Glucose - Point of Care 119 mg/dl (70-99)
[2024-01-16] MEDS: KCL 20 MEQ PO ×2 (09:41→20:31)
[2024-01-16] MEDS: CRESTOR 20 MG PO (09:42)
[2024-01-16] MEDS: FLOMAX 0.4 MG PO (09:42)
[2024-01-16] MEDS: FARXIGA 10 MG PO (09:42)
[2024-01-16] MEDS: LASIX 80 MG PO (09:42)
[2024-01-16] MEDS: FEOSOL 325 MG PO (09:43)
[2024-01-16] MEDS: LOW STRENGTH ASPIRIN 81 MG PO (09:43)
[2024-01-16] MEDS: XIFAXAN 550 MG PO ×2 (09:43→20:31)
[2024-01-16] MEDS: PROTONIX IV 40 MG IV ×2 (09:44→20:31)
[2024-01-16] MEDS: STERILE WATER FOR INJECTION 20 ML IV (09:44)
[2024-01-16] MEDS: NSS (PRESERVATIVE FREE) 10 ML IV ×2 (09:44→20:31)
[2024-01-16] MEDS: ROCEPHIN 2000 MG IV (09:44)
[2024-01-16] MEDS: PROZAC PO (09:51)
[2024-01-16 10:02] LABS: Ammonia < 9 umol/L (9-30)
[2024-01-16] MEDS: THIAMINE INJECTION 100 MG IV (11:29)
[2024-01-16] MEDS: ALDACTONE 25 MG PO (11:29)
--- NOTE | 2024-01-16 12:11 | W.CON.PAL ---
Consultation
-
Date/Time Consultation Requested: 01/15/2024
Date/Time Consultation Performed: 01/16/2024
Requesting Provider: Dr. Jones
Performing Provider: Dr. Anderson
Reason for Consult: Goals of Care Discussion
Primary Diagnosis: Cirrhosis with hepatic encepahlopathy
Consult Requested By: Patient's Physician
Primary Care Physician: Dr. Ríos, GI specialist Dr. Pinedo at [facility]
Reason for Admission
Illness Course/HPI
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 He was admitted to hospital on 01/13 due to worsening
confusion. He had not been taking his lactulose since august. He also had another hospital stay earlier in this month at [facility] for GI bleeding.
Met with patient, shazia and daughters brook and pooja at bedside. patient is confused at time of my visit, he offers no symptom issues when asked. majority of history from family.
Family report that he follows with Dr. Cross at [place], he underwent workup in 2022 for transplant evaluation, but his MELD score was too low, and now with his age approaching 74, were told he would not be a candidate for transplant. At his
baseline, apart from back pain issues he is independent of adls/iadls including driving, but in the past month there has been changes with confusion.
Patient and his live [facility] in [place].
Functional Status & Support Systems
Current Functional Status:
Currently able to ambulate to bathroom with assist
ADLS: Independent (independent at baseline)
IADLS: Independent (independant at baseline)
Farm Equipment Mechanic Apprentice/Family Support: Spouse Shazia
Review of Advanced Directives
Advanced Care Documentation Status: Complete
Type of Documentation: Living Will
Location of Advanced Care Documentation: [facility]
Surrogate Decision Maker (name & contact): Spouse Shazia
Preferences Regarding Medical Care at End of Life: At the end of life would focus on comfort care
Goals of Care Discussion
-
Individuals Present for Discussion & Relationship to Patient:
Discussed palliative care services - interested in outpatient palliative care programs.
Discussed in home needs - may need rehab vs. more caregivers at home, if needs rehab preference would be [facility].
Discussed balance of patient's dislike of lactulose/frequent BMs impacting quality of life vs. hospitalizations due to encephalopathy - goals are treatment oriented at this time
Discussed future planning if confusion becomes a more regular issue moving forward, as he had not had issues with significant confusion prior to 1-2 months ago.
Current code status FULL CODE - however family will discuss and will notify attending if agreeable to change to DNR status.
Patient able to participate in discussion at time of visit: No
Objective Data
-
Objective Data:
Vital Signs
Temp Pulse Resp BP Pulse Ox
98.2 F 82 21 100/59 97
01/16/24 07:40 01/16/24 11:29 01/16/24 10:01 01/16/24 11:29 01/16/24 10:31
Laboratory Results
01/16/24 04:22
01/16/24 04:22
PT 18.6 Sec (11.4-14.6) H 01/16/24 04:22
INR 1.57 01/16/24 04:22
APTT 45.2 Sec (23.4-35.0) H 01/16/24 04:22
Hemoglobin A1c 5.4 % (4.0-5.6) 01/15/24 04:57
Ammonia < 9 umol/L (9-30) L 01/16/24 09:43
Total Protein 5.7 g/dl (6.3-8.2) L 01/16/24 04:22
Albumin 2.4 g/dl (3.5-5.0) L 01/16/24 04:22
Urine Color Yellow 01/14/24 14:51
Urine Clarity Clear (Clear) 01/14/24 14:51
Urine pH 8.0 (5.0-9.0) 01/14/24 14:51
Ur Specific [place] 1.015 (<1.030) 01/14/24 14:51
Urine Ketones Negative (Negative) 01/14/24 14:51
Urine Bilirubin Negative (Negative) 01/14/24 14:51
Palliative Performance Scale
Palliative Performance Scale:
PPS Level Ambulation Activity & Evidence of Disease Self Care Intake Conscious Level
100% Full Normal Activity & Work; Full Intake Full
No Evidence of Disease
90% Full Normal Activity & Work; Full Normal Full
Some Evidence of Disease
80% Full Normal Activity with Effort Full Normal or Full
Some Evidence of Disease Reduced
70% Reduced Unable Normal Job/Work Full Normal or Full
Significant Disease Reduced
60% Reduced Unable Hobby/Housework Occasional Normal or Full or Confusion
Significant Disease Assistance Reduced
50% Mainly Sit/Lie Unable to do Any Work Considerable Normal or Full or Confusion
Extensive Disease Assistance Req'd Reduced
40% Mainly in Bed Unable to do Most Activity Mainly Assistance Normal or Full or Drowsy;
Extensive Disease Reduced +/- Confusion
30% Totally Bed Unable to do Any Activity Total Care Normal or Full or Drowsy;
Bound Extensive Disease Reduced +/- Confusion
20% Totally Bed Bound Unable to do Any Activity Total Care Minimal to Full or Drowsy;
Extensive Disease Sips +/- Confusion
10% Totally Bed Bound Unable to do Any Activity Total Care Mouth Care Drowsy or Coma;
Extensive Disease Only +/- Confusion
0%
PPS Score Level: 50
Physical Exam
-
General: Well Developed, Well Nourished, Comfortable and Conversant
HEENT: Moist Mucous Membranes
GI: Distended and Ascites
Neuro: Awake
Psych: Confused
Assessment / Plan
-
Assessment/Plan:
Goals of Care: Treatment oriented, family hoping for improvement in confusion with addition of lactulose
interested in outpatient palliative care as patient for further discussions of goals of care.
Advanced directives/medical POA documentation is in the chart
Care Reviewed
Time
Start Date: 01/16/24
Start Time: 09:40
Stop Date: 01/16/24
Stop Time: 11:00
Time Spent:
80
[2024-01-16 12:14] LABS: TSH Reflex To Free T4 2.09 uIU/ml (0.47-4.68)
[2024-01-16 12:18] LABS: Ferritin 50.7 ng/ml (17.9-464.0)
[2024-01-16 12:32] LABS: Vitamin B12 > 1000 pg/ml (239-931)
[2024-01-16 13:46] LABS: Folate 6.4 ng/ml (2.76-20)
[2024-01-16] MEDS: NOVOLOG FLEXPEN-LOW RESISTANCE 1 UNITS SC (13:50)
[2024-01-16 13:55] LABS: Glucose - Point of Care 157 mg/dl (70-99)
--- NOTE | 2024-01-16 14:02 | PTCARENOTE ---
Patient having urine frequency. Pt bladder scanned for 165. Pt is impulsive and attempts to get OOB without help. Pt does not remember to use call doshi. Pt's family members at pt's bedside and continuously alert nursing when patient needs to
urinate. Pt is slightly unsteady on his feet, therefore needs assistance. Assessment, care and VS as charted.
--- NOTE | 2024-01-16 14:32 | W.PN.HOSP.TC ---
Today's Communication/Plan
-
eeg
neuro
lactulose rifax
bm 2-3 dailys
irad cosnult
thora
pleural studies
Assessment / Plan
Assessment / Plan
NAD, resting comfortably in bed, able to follow commands, without focal defecits
Scleral anicteric, rattle leak and squeak repairer lateral border some bruising
Moist mucous membranes
JVD
CTA bilateral
Normal S1-S2 no murmurs
Soft nontender distended abdomen fluid wave bowel sounds active
No peripheral pitting edema
Moves extremities spontaneously
AAOx2, 5/5 motor strenght in UE and LE, good customer sales representative strenght
Hepatic encephalopathy. Continue lactulose for goal bowel movements 2-3 daily. Continue rifaximin. Stressed importance of both agents to daughter and Mr. Ann.
TME - still on going intermittent, check eeg, consult neuro
Decompensated cirrhosis presenting with hepatic encephalopathy and ascites. Continue lactulose rifaximin IR consult for paracentesis. Obtain fluid studies cytology culture.
If requires greater than more than 4.5 L removed would provide 1 albumin back for every liter removed. Please see GI notes for recommendation.
Continue Aldactone and Lasix. Will discuss with GI increasing Aldactone dose
He will need to follow up with Hepatology as an outpatient
Pleural effusion noted on abdominal ultrasound. Will obtain chest x-ray to formally evaluate. Expect related to ascites and would improve with drainage of ascitic fluid via paracentesis. Also on Lasix. We will repeat/obtain chest x-ray in the
a.m. to further evaluate. If still present then can consult IR for potential thoracentesis however should be noted he is asymptomatic from this and not requiring supplemental oxygen
-Cxr from this AM - large pleural effusion still present
- - IRAD consult for thora
Pancytopenia secondary to underlying cirrhosis. Monitor for now. Outpatient hematology follow-up
Chronic hyponatremia due to underlying cirrhosis. Fluid restrict.
Hypokalemia improved this a.m.
Diabetes type 2 with hyperglycemia. Will consult endocrinology as I do agree with Dr. Peterson that pioglitazone is not an ideal oral hypoglycemic for him due to fluid retention.
HLD continue statin
Anticipated Discharge: Within 24 hours
Subjective/Interval History
-
Date of Service: January 16, 2024
seen and examined
confused, hallucinating, noted some areas of bruising on the side of his tongue
Objective Data
-
Labs:
Laboratory Results
01/16/24
04:22
WBC 5.0
Hgb 7.9 L
Hct 24.0 L
Plt Count 114 L
PT 18.6 H
INR 1.57
APTT 45.2 H
Sodium 132 L
Potassium 3.9
Chloride 101
Carbon Dioxide 30
BUN 18
Creatinine 0.8
Glucose 124 H
Calcium 8.0 L
Total Bilirubin 2.3 H
AST 68 H
ALT 22
Alkaline Phosphatase 224 H
Vital Signs:
Vital Signs
Temp Pulse Resp BP Pulse Ox
98.4 F 79 26 112/53 96
01/16/24 11:21 01/16/24 14:00 01/16/24 11:07 01/16/24 13:22 01/16/24 14:09
I&O
01/15/24 01/16/24 01/17/24
06:59 06:59 06:59
Intake Total 240 / 240 1080 / 1080 480 / 480
Output Total 200 / 200
Balance 40 / 40 1080 / 1080 480 / 480
--- NOTE | 2024-01-16 15:41 | CM ---
Patient with Hx BELTRAN Cirrhosis with Dx confusion/encephalopathy. Room air. Receiving IV Abx. Palliative Care Consult & Neuro Consult today. PT & OT recommend HH.
Spoke with nurse Irais; patient remains confused today with some hallucinations. No restraints or Medsitter.
Met with Deepa and daughters Bridgette & Ivonne in [facility];
discussed patient's care needs at d/c if he remains confused. Deepa would like her to go to [facility] for short term rehab and continued care. She is unsure if she would want SNF for [facility] care.
Spoke with Soheila, [facility] (ph [phone] x [phone]; she is covering [facility] for [facility] this week. Discussed patient's current condition including his mental status. She will review the referral and they will be able to accept him for rehab.
SNF referral placed.
Plan [facility] when medically ready.
--- NOTE | 2024-01-16 16:03 | EEG.RPT ---
Electroencephalogram Report
Recording
Date of EE01/16/24
Type of EEG: Routine
Length of EEG recordin mins
Done with Video Recording: Yes
Patient Status: Inpatient
Recording Conditions: Awake
Hyperventilation Performed: No
Photic Stimulation Performed: Yes
Report
METHODS
A 21 channel digitized electroencephalogram was performed at [facility]. The 10/20 international system of electrode placement was used. In addition to EEG, the patient was monitored for EKG. The duration of the recording was 27 minutes.
BACKGROUND
During the awake state, with the eyes closed, the background consisted of a normal amplitude and was diffusely slow ranging from 4-6Hz frequencies.
SLEEP
Stage II sleep was not obtained.
HYPERVENTILATION
Hyperventilation was not performed.
PHOTIC STIMULATION
Photic stimulation using a step-martinez increase in photic frequency varying from 1-31 Hertz resulted in no driving responses but no appearance of abnormal activity.
ABNORMAL EEG ACTIVITY
None
CLINICAL EVENTS
Several clinical events were captured including upper body twitching, right hand twitching, constant overall jerking, talking to himself, both legs shaking, left hand twitching, entire body shaking, moving his left hand to his face and rubbing his
face. All of these events had no clear epileptiform correlate and diffuse slowing of the background as well as severe muscle and movement artifact were seen.
INTERPRETATION AND CLINICAL CORRELATION
This EEG is abnormal due to the presence of diffuse slowing of the background during the awake state as well as during the activation procedure of photic stimulation. No seizures were noted during the recording. Several clinical events were
captured. All of these events had no clear epileptiform correlate and diffuse slowing of the background as well as severe muscle and movement artifact were seen.
[2024-01-16 16:53] LABS: Glucose - Point of Care 125 mg/dl (70-99)
[2024-01-16 17:21] LABS: LDH 509 U/L (120-246)
[2024-01-16 22:48] LABS: Glucose - Point of Care 135 mg/dl (70-99)
[2024-01-17] VITALS (23 sets, daily range): BP systolic 83–121; BP diastolic 35–86; PULSE 86; BMI 29.7
--- NOTE | 2024-01-17 00:56 | PTCARENOTE ---
assumed care of patient, pt is AAOx2/3, forgetful and having visual hallucinations. pt setting bed alarm off frequently to go to bathroom. pt is x1 assist to BR without issues. able to take pills without issues. speech garbled at times. 95% RA, VSS.
care ongoing.
[2024-01-17 05:31] LABS: Hematocrit 22.9 % (39.0-52.0); Hemoglobin 7.6 g/dL (13.0-18.0); Mean Corp Hgb Conc. 33.2 g/dL (33.0-37.0); Mean Corpuscular Hgb 28.1 pg (27.0-31.0); Mean Corpuscular Volume 84.8 fL (80.0-94.0); Mean Platelet Volume 11.5 fL (7.4-10.4); Platelet Count 117 10^3/uL (130-400); Red Cell Dist. Width 16.9 % (11.5-14.5); White Blood Cell Count 5.4 10^3/uL (4.8-10.8)
[2024-01-17 05:42] LABS: INR 1.62; PT 19.1 Sec (11.4-14.6)
[2024-01-17 05:43] LABS: APTT 46.9 Sec (23.4-35.0)
[2024-01-17 05:56] LABS: ALT (SGPT) 21 U/L (0-50); AST (SGOT) 69 U/L (17-59); Albumin 2.3 g/dl (3.5-5.0); Alkaline Phosphatase 212 U/L (38-126); Blood Urea Nitrogen 19 mg/dl (9-20); Calcium 8.2 mg/dl (8.4-10.2); Carbon Dioxide 27 mmol/L (22-30); Chloride 103 mmol/L (98-107); Estimated Creatinine Clearance 82 ml/min; Glucose 102 mg/dl (70-99); Potassium 3.9 mmol/L (3.5-5.1); Sodium 133 mmol/L (135-145); Total Bilirubin 2.1 mg/dl (0.2-1.3); Total Protein 5.6 g/dl (6.3-8.2); eGFR > 60.00
--- NOTE | 2024-01-17 05:57 | W.PN.NEURO.1 ---
Today's Communication / Plan
-
-Would focus on lactulose and hepatic encephalopathy treatments
-Minimize sedating medications
-Monitor mental status clinically
Will follow peripherally call with questions and concerns
Neuro Assessment/Plan
Assessment
73-year-old male with a history of cirrhosis presented to hospital with confusion hallucinations fatigue and generalized weakness along with abdominal distention.
Very likely this is hepatic encephalopathy based on neurologic examination of fluctuating attention, mild tremor/asterixis, no focal neurologic deficits along with CT head not showing any significant structural abnormality.
Best to keep in mind that a normal ammonia level does not rule out hepatic encephalopathy in the correct clinical context
Clinical history and EEG not supportive of seizures as etiology
Other considerations for etiology could be nutritional or vitamin deficiencies, infections
Subjective/Objective
Subjective Data
Date of Service: January 17, 2024
No acute events, discussed liver disease, bowel movements
Objective Data
Vital Signs
Temp Pulse Resp BP Pulse Ox
97.7 F 81 26 91/74 95
01/17/24 03:26 01/17/24 04:00 01/16/24 11:07 01/17/24 04:00 01/16/24 20:05
Lab Results
01/17/24 05:09
01/17/24 05:09
PT 18.6 Sec (11.4-14.6) H 01/16/24 04:22
INR 1.57 01/16/24 04:22
APTT 45.2 Sec (23.4-35.0) H 01/16/24 04:22
Sodium 133 mmol/L (135-145) L 01/17/24 05:09
Potassium 3.9 mmol/L (3.5-5.1) 01/17/24 05:09
BUN 19 mg/dl (9-20) 01/17/24 05:09
Glucose 102 mg/dl (70-99) H 01/17/24 05:09
Calcium 8.2 mg/dl (8.4-10.2) L 01/17/24 05:09
Phosphorus 2.6 mg/dl (2.5-4.5) 01/16/24 04:22
Vitamin B12 > 1000 pg/ml (239-931) H 01/16/24 04:22
Patient Allergies
cyclobenzaprine Allergy (Verified 01/14/24 13:41)
'Out of it'
oxycodone [From OxyContin] Allergy (Verified 01/14/24 13:41)
'Out of it'
Review of Systems
-
History Source: Patient
All other systems: Reviewed and negative
Constitutional: No Symptoms
EENT: No Symptoms Reported
Respiratory: No Symptoms
Cardiac: No Symptoms
Abdomen/GI: No Symptoms
Genitourinary: No Symptoms
Musculoskeletal: No Symptoms
Skin: No Symptoms
Neuro: See existing Neuro Note
Endocrine: No Symptoms
Hematologic / Lymphatic: No Symptoms
Allergy / Immunology: No Symptoms
Physical Exam
-
General: Comfortable and Appears Chronically Ill
Eyes: No Ptosis
HEENT: Atraumatic
Neck: No Bruits Bilaterally
Respiratory: Clear to Auscultation
Cardiac: Regular Rhythm
GI: Non-tender and Distended
Skin: Warm and Dry; Negative Rash
Extremities: No Cyanosis
Psych: Confused; Negative Agitated or Intact Judgement/Insight
Extended Neurological Exam
Attention Span & Concentration: Interactive and Moderate Difficulty with 2 Step Request
Memory: Reduced
Tremor: Asterixis, Distal and With Action
Involuntary Movement: None
Speech: Quality Unremarkable, Quantity Unremarkable and Dysarthric; Negative Expressive Aphasia or Receptive Aphasia
Cranial Nerve II: Left Eye: Pupillary Reactivity Unremarkable and Pupillary Size Unremarkable
Cranial Nerve II: Right Eye: Pupillary Reactivity Unremarkable and Pupillary Size Unremarkable
Cranial Nerves III, IV, : Extraocular Movement: Extraocular Movement Full in all Directions
Cranial Nerve VII: Facial Symmetry: Normal Facial Symmetry
Muscle Strength, Overall: Full Throughout
Pronator Drift: No Drift in Upper Extremities
Touch Sensation: Unremarkable
Coordination: [id number] Testing Unremarkable
Data Reviewed
-
CT Head: Report Reviewed and Image Reviewed
EEG: Report Reviewed
[2024-01-17 06:15] LABS: Erythrocyte Sed Rate 59 mm/hour (0-20)
[2024-01-17 07:59] LABS: Glucose - Point of Care 112 mg/dl (70-99)
[2024-01-17] MEDS: NOVOLOG FLEXPEN-LOW RESISTANCE SC ×2 (08:02→10:48)
[2024-01-17 09:07] LABS: Body Fluid pH 7.39
[2024-01-17 10:01] LABS: Body Fluid Mononuclear 75.4 %; Body Fluid Polymorphonuclear 24.6 %; Body Fluid WBC 179 /CUMM
[2024-01-17 10:12] LABS: Body Fluid Second Tech EM
[2024-01-17] MEDS: FEOSOL 325 MG PO (10:22)
[2024-01-17] MEDS: KCL 20 MEQ PO ×2 (10:22→20:23)
[2024-01-17] MEDS: DUPHALAC/CHRONULAC 20 GRAMS PO ×2 (10:22→20:23)
[2024-01-17] MEDS: LASIX 80 MG PO (10:22)
[2024-01-17] MEDS: FARXIGA 10 MG PO (10:22)
[2024-01-17] MEDS: LOW STRENGTH ASPIRIN 81 MG PO (10:23)
[2024-01-17] MEDS: CRESTOR 20 MG PO (10:23)
[2024-01-17] MEDS: XIFAXAN 550 MG PO ×2 (10:23→20:23)
[2024-01-17] MEDS: THIAMINE INJECTION 100 MG IV (10:23)
[2024-01-17] MEDS: FLOMAX 0.4 MG PO (10:23)
[2024-01-17] MEDS: MAGNESIUM OXIDE 250 MG PO (10:24)
[2024-01-17] MEDS: NSS (PRESERVATIVE FREE) 10 ML IV ×2 (10:24→20:23)
[2024-01-17] MEDS: PROTONIX IV 40 MG IV ×2 (10:24→20:23)
[2024-01-17] MEDS: STERILE WATER FOR INJECTION 20 ML IV (10:31)
[2024-01-17] MEDS: ROCEPHIN 2000 MG IV (10:31)
[2024-01-17 10:33] LABS: Body Fluid Glucose 77 mg/dl; Body Fluid LDH 155 U/L; Body Fluid Protein < 2.0 g/dl; Body Fluid Triglycerides < 30 mg/dl
[2024-01-17 10:52] LABS: Glucose - Point of Care 111 mg/dl (70-99)
[2024-01-17] MEDS: ALDACTONE 25 MG PO (12:45)
--- NOTE | 2024-01-17 13:32 | W.PN.GI.CBS2 ---
Addendum entered and electronically signed by Manasa Kellie DO Che 01/17/24 15:06:
I saw and examined the patient.
The SCALLOP BINDER or PA's note was reviewed and I agree with the note.
Comment: Patient seen in follow-up. He continues to exhibit hallucinations and body fasciculations, no flapping. Very difficult to blame this solely on hepatic encephalopathy. He was evaluated by Neurology, EEG negative.
-Agree with psych evaluation.
-hemoglobin stable, no signs of GI bleeding, no plans for endoscopic procedures at this time
-c/w lactulose and rifaximin
-uptitrate aldactone-- patient tolerating 25 mg at home, continue lasix
-outpatient follow-up with Dr. Cross
Original Note:
Today's Communication / Plan
-
pt still with hallucination with visual and auditory symptoms, Etiology unclear if atypical HE though ammonia level normal since admission and remains oriented x 3, vs other
-Neurology consultation appreciated
consider psych eval
no change with several stools and increased lactulose dosing
cont Xifaxan BID
cont PPI
remains on abx with GI bleed and cirrhosis
-Continue Lasix and Aldactone
-No plans on endoscopic intervention at this time
-Follow-up with Dr. Cross as an outpatient.
s/p palliative care consult
Assessment / Plan
-
&3yo presents with hx BELTRAN cirrhosis, GI bleed, TAVR, GERD, HTN, recent GIB at [facility] from 01/01/2024 through 01/05/2024 as he presented with abdominal distention, confusion and melena. He had a hemoglobin of 6. He was transfused 1 unit
of packed red blood cells given IV infusion and started on oral iron. He had an EGD which per his showed 'AVMs'. The patient was discharged with a hemoglobin in the 'mid sevens'. He also had a paracentesis when he was at [facility].
He had 3.2 L taken off. Hx HE was on Lactulose in past with diarrhea then change to Xifaxan. Now presents with hallucinations with worsening symptoms. Pt with recent start of Tramadol for back pain.
Impression:
hallucinations
body tremors
hx HE on Xifaxan and Lactulose added
OB positive stool, recent EGD evaluation at [facility] -> 'AVMs' with 'Hgb 6-> mid 7s' given 1 unit PRBC, IV iron and po iron started (12/31-01/04/23), was having melena during that time
MASH cirrhosis
anemia
coagulopathy
History of GAVE/duodenal AVM
Chronic anemia
Pleural effusion (left) s/p thora with apical pneumo
History of TAVR
Plan:
pt still with hallucination with visual and auditory symptoms, Etiology unclear if atypical HE though ammonia level normal since admission and remains oriented x 3, vs other
-Neurology consultation appreciated
consider psych eval
no change with several stools and increased lactulose dosing
cont Xifaxan BID
cont PPI
remains on abx with GI bleed and cirrhosis
-Continue Lasix and Aldactone
-No plans on endoscopic intervention at this time
-Follow-up with Dr. Cross as an outpatient.
s/p palliative care consult
Subjective
Subjective
Date of Service: January 17, 2024
01/16 brown stool on 1800 ADA diet
Objective
Data Reviewed
Laboratory Data:
Laboratory Results
01/17/24 05:09
01/17/24 05:09
Laboratory Results
PT 19.1 Sec (11.4-14.6) H 01/17/24 05:09
INR 1.62 01/17/24 05:09
APTT 46.9 Sec (23.4-35.0) H 01/17/24 05:09
Phosphorus 2.6 mg/dl (2.5-4.5) 01/16/24 04:22
Magnesium 1.6 mg/dl (1.6-2.3) 01/16/24 04:22
Total Bilirubin 2.1 mg/dl (0.2-1.3) H 01/17/24 05:09
AST 69 U/L (17-59) H 01/17/24 05:09
ALT 21 U/L (0-50) 01/17/24 05:09
Alkaline Phosphatase 212 U/L (38-126) H 01/17/24 05:09
Vital Signs and I&O:
Vital Signs
Temp Pulse Resp BP Pulse Ox
98 F 82 13 99/76 96
01/17/24 08:10 01/17/24 12:45 01/17/24 10:05 01/17/24 12:45 01/17/24 12:55
I&O
01/16/24 01/17/24 01/18/24
06:59 06:59 06:59
Intake Total 1080 / 1080 960 / 960 480 / 480
Balance 1080 / 1080 960 / 960 480 / 480
Physical Exam
Physical Exam
HEENT: Anicteric and Moist mucous membranes
Cardiology: Normal Sinus Rhythm
Pulmonary: Clear
GI: Soft, Distended (mild) and Non Tender
Neuro: Other (pt oriented but still noted with hallucination - visual and auditory )
--- NOTE | 2024-01-17 13:49 | W.PN.HOSP.TC ---
Today's Communication/Plan
-
Lactulose and rifaximin, goal 2-3BM daily
Start SGLT2i
Follow up GI recs
Consult psych for completeness
Assessment / Plan
Assessment / Plan
NAD, resting comfortably in bed, able to follow commands, without focal defecits, hallucinating
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
Moist mucous membranes
JVD
CTA bilateral
Normal S1-S2 no murmurs
Soft nontender distended abdomen fluid wave bowel sounds active
No peripheral pitting edema
Moves extremities spontaneously
AAOx2, 5/5 motor strenght in UE and LE, good glucose and syrup weigher strenght
Hepatic encephalopathy. Continue lactulose for goal bowel movements 2-3 daily. Continue rifaximin. Stressed importance of both agents to daughter and Mr. Ann.
TME - still on going intermittent, check eeg, consult neuro
- WIll consult Psych for completeness.
Decompensated cirrhosis presenting with hepatic encephalopathy and ascites. Continue lactulose rifaximin IR consult for paracentesis. Obtain fluid studies cytology culture.
If requires greater than more than 4.5 L removed would provide 1 albumin back for every liter removed. Please see GI notes for recommendation.
Continue Aldactone and Lasix. Will discuss with GI increasing Aldactone dose
He will need to follow up with Hepatology as an outpatient
Pleural effusion noted on abdominal ultrasound. Will obtain chest x-ray to formally evaluate. Expect related to ascites and would improve with drainage of ascitic fluid via paracentesis. Also on Lasix. We will repeat/obtain chest x-ray in the
a.m. to further evaluate. If still present then can consult IR for potential thoracentesis however should be noted he is asymptomatic from this and not requiring supplemental oxygen
-Cxr from this AM - large pleural effusion still present
- - IRAD consult for thora
- - - COncern for PTX noted on CXR, IRAD janiss trapped lung, (not symptomatic nor reuriing o2), IRAD rec repeat CXR in the AM
Pancytopenia secondary to underlying cirrhosis. Monitor for now. Outpatient hematology follow-up
Chronic hyponatremia due to underlying cirrhosis. Fluid restrict.
Hypokalemia improved this a.m.
Diabetes type 2 with hyperglycemia. On DC should stop Thiazolidediones. Start SGLT2i now. Conitnue SSI
HLD continue statin
Anticipated Discharge: 24 - 48 hours
Subjective/Interval History
-
Date of Service: January 17, 2024
seen and examiend
still hallucinating
eeg without evidence of seizure
Objective Data
-
Labs:
Laboratory Results
01/17/24
05:09
WBC 5.4
Hgb 7.6 L
Hct 22.9 L
Plt Count 117 L
PT 19.1 H
INR 1.62
APTT 46.9 H
Sodium 133 L
Potassium 3.9
Chloride 103
Carbon Dioxide 27
BUN 19
Creatinine 0.8
Glucose 102 H
Calcium 8.2 L
Total Bilirubin 2.1 H
AST 69 H
ALT 21
Alkaline Phosphatase 212 H
Vital Signs:
Vital Signs
Temp Pulse Resp BP Pulse Ox
98 F 82 13 99/76 96
01/17/24 08:10 01/17/24 12:45 01/17/24 10:05 01/17/24 12:45 01/17/24 12:55
I&O
01/16/24 01/17/24 01/18/24
06:59 06:59 06:59
Intake Total 1080 / 1080 960 / 960 480 / 480
Balance 1080 / 1080 960 / 960 480 / 480
[2024-01-17] MEDS: NOVOLOG FLEXPEN-LOW RESISTANCE 300 UNITS SC (17:33)
[2024-01-17 17:43] LABS: Glucose - Point of Care 185 mg/dl (70-99)
[2024-01-17 22:42] LABS: Glucose - Point of Care 174 mg/dl (70-99)
[2024-01-18] VITALS (14 sets, daily range): BP systolic 89–149; BP diastolic 42–123; BMI 28.7
--- NOTE | 2024-01-18 01:22 | PTCARENOTE ---
assumed care of patient, pt oriented x3 but forgetful and having hallucinations. medsitter at bedside trying to help redirect patient. pt x1 assist to BR, SOB on exertion, 94% RA. took pills with applesauce. bed alarm on for safety. care ongoing.
[2024-01-18 04:04] LABS: Hemoglobin 7.9 g/dL (13.0-18.0); Mean Corp Hgb Conc. 31.6 g/dL (33.0-37.0); Mean Corpuscular Hgb 27.9 pg (27.0-31.0); Mean Corpuscular Volume 88.3 fL (80.0-94.0); Mean Platelet Volume 9.8 fL (7.4-10.4); Platelet Count 114 10^3/uL (130-400); Red Blood Cell Count 2.83 10^6/uL (4.70-6.10); Red Cell Dist. Width 16.8 % (11.5-14.5); White Blood Cell Count 7.2 10^3/uL (4.8-10.8)
[2024-01-18 04:24] LABS: ALT (SGPT) 24 U/L (0-50); AST (SGOT) 78 U/L (17-59); Albumin 2.3 g/dl (3.5-5.0); Alkaline Phosphatase 215 U/L (38-126); Blood Urea Nitrogen 20 mg/dl (9-20); Calcium 8.2 mg/dl (8.4-10.2); Carbon Dioxide 25 mmol/L (22-30); Chloride 103 mmol/L (98-107); Estimated Creatinine Clearance 65 ml/min; Glucose 131 mg/dl (70-99); Potassium 3.8 mmol/L (3.5-5.1); Sodium 133 mmol/L (135-145); Total Bilirubin 2.1 mg/dl (0.2-1.3); Total Protein 5.7 g/dl (6.3-8.2); eGFR > 60.00
[2024-01-18 04:28] LABS: INR 1.59; PT 19.1 Sec (11.4-14.6)
[2024-01-18 04:29] LABS: APTT 48.3 Sec (23.4-35.0)
--- NOTE | 2024-01-18 08:20 | W.PN.NEURO.1 ---
Addendum entered and electronically signed by Brian Pacheco MD 01/18/24 13:16:
Discussed with Dr Jones
Reviewed psychiatry note appreciated
Suspicion remains greatest for delirium from medical illness, difficult to say but may have had an underlying cognitive impairment, and I think repeated episodes of liver failure probably have worsened this
I don't feel much utility in brain MRI and patient with severe claustrophobia
Will pursue lumbar puncture for thoroughness to rule out encephalitis but I would expect profound abnormal movements, rapid decline and other neurologic signs if these were to be the case
Original Note:
Today's Communication / Plan
-
-Minimize sedating medications
-Continue lactulose
-Follow mental status clinically, some mild improvements it seems
Neuro Assessment/Plan
Assessment
73-year-old male with a history of cirrhosis presented to hospital with confusion hallucinations fatigue and generalized weakness along with abdominal distention.
Continue to feel we are seeing the effects of an improving hepatic encephalopathy based on neurologic examination of fluctuating attention, mild tremor/asterixis, no focal neurologic deficits along with CT head not showing any significant structural
abnormality.
Best to keep in mind that a normal ammonia level does not rule out hepatic encephalopathy in the correct clinical context
Clinical history and EEG not supportive of seizures as etiology and clinically he hasn't sounded like seizure episodes
No signs suggestive of CONTRACTS ATTORNEY infection
Patient denies alcohol or drug use not seeming to have vital signs suggestive of withdrawal but would keep this in mind
Not on many sedating mediations
No history that strongly suggests a cognitive impairment at baseline
Repeated episodes of hepatic encephalopathy and metabolic disturbance could create lasting cognitive effects
history and Exam not very supportive of ischemic stroke
Other considerations for etiology could be nutritional or vitamin deficiencies, infections
Subjective/Objective
Subjective Data
Date of Service: January 18, 2024
No acute events, this morning conversational, denies headache, had one a few days ago
Objective Data
Vital Signs
Temp Pulse Resp BP Pulse Ox
98.5 F 83 13 133/102 94
01/18/24 03:53 01/18/24 06:03 01/17/24 10:05 01/18/24 06:03 01/17/24 20:47
Lab Results
01/18/24 03:30
01/18/24 03:30
PT 19.1 Sec (11.4-14.6) H 01/18/24 03:30
INR 1.59 01/18/24 03:30
APTT 48.3 Sec (23.4-35.0) H 01/18/24 03:30
Sodium 133 mmol/L (135-145) L 01/18/24 03:30
Potassium 3.8 mmol/L (3.5-5.1) 01/18/24 03:30
BUN 20 mg/dl (9-20) 01/18/24 03:30
Glucose 131 mg/dl (70-99) H 01/18/24 03:30
Calcium 8.2 mg/dl (8.4-10.2) L 01/18/24 03:30
Phosphorus 2.6 mg/dl (2.5-4.5) 01/16/24 04:22
Vitamin B12 > 1000 pg/ml (239-931) H 01/16/24 04:22
Patient Allergies
cyclobenzaprine Allergy (Verified 01/14/24 13:41)
'Out of it'
oxycodone [From OxyContin] Allergy (Verified 01/14/24 13:41)
'Out of it'
Review of Systems
-
History Source: Patient
All other systems: Reviewed and negative
Constitutional: No Symptoms
EENT: No Symptoms Reported
Respiratory: No Symptoms
Cardiac: No Symptoms
Abdomen/GI: No Symptoms
Genitourinary: No Symptoms
Musculoskeletal: No Symptoms
Skin: No Symptoms
Neuro: See existing Neuro Note
Endocrine: No Symptoms
Hematologic / Lymphatic: No Symptoms
Allergy / Immunology: No Symptoms
Physical Exam
-
General: Well Developed, Well Nourished and No Apparent Distress
Eyes: No Ptosis
HEENT: Normocephalic
Neck: No Bruits Bilaterally
Respiratory: Clear to Auscultation
Cardiac: Regular Rhythm
GI: Normal Bowel Sounds
Skin: Unremarkable
Extremities: No Clubbing
Psych: Negative Agitated
Extended Neurological Exam
Attention Span & Concentration: Other (Fully awake and alert, oriented to hospital, names months of year forwards and backwards, some difficulty in understanding a math question but eventually gets 100 - 7 correct, obeys complex commands, fair
historian, some inattention, difficulty with some complex commands and abstraction)
Memory: Able to Recall
Tremor: Other (Tremor bilaterally in the hands outstretched without shyam asterixis)
Speech: Quality Unremarkable and Quantity Unremarkable; Negative Receptive Aphasia, Mildly Reduced Output or Dysarthric
Cranial Nerve II: Left Eye: Pupillary Reactivity Unremarkable and Pupillary Size Unremarkable
Cranial Nerve II: Right Eye: Pupillary Reactivity Unremarkable and Pupillary Size Unremarkable
Cranial Nerves III, IV, : Extraocular Movement: Extraocular Movement Full in all Directions
Muscle Strength, Overall: Full Throughout
Coordination: [id number] Testing Unremarkable
Data Reviewed
-
CT Head: Report Reviewed and Image Reviewed
[2024-01-18 08:22] LABS: Glucose - Point of Care 148 mg/dl (70-99)
[2024-01-18] MEDS: DUPHALAC/CHRONULAC 20 GRAMS PO ×2 (08:23→20:05)
[2024-01-18] MEDS: LOW STRENGTH ASPIRIN 81 MG PO (08:23)
[2024-01-18] MEDS: LASIX 80 MG PO (08:23)
[2024-01-18] MEDS: CRESTOR 20 MG PO (08:23)
[2024-01-18] MEDS: XIFAXAN 550 MG PO ×2 (08:24→20:05)
[2024-01-18] MEDS: FLOMAX 0.4 MG PO (08:24)
[2024-01-18] MEDS: MAGNESIUM OXIDE 250 MG PO (08:24)
[2024-01-18] MEDS: KCL 20 MEQ PO ×2 (08:24→20:05)
[2024-01-18] MEDS: NSS (PRESERVATIVE FREE) 10 ML IV ×2 (08:25→20:05)
[2024-01-18] MEDS: FEOSOL 325 MG PO (08:25)
[2024-01-18] MEDS: PROTONIX IV 40 MG IV ×2 (08:25→20:05)
[2024-01-18] MEDS: FARXIGA 10 MG PO (08:25)
--- NOTE | 2024-01-18 08:45 | W.PN.GI.CBS2 ---
Addendum entered and electronically signed by Manasa Bolton DO 01/18/24 13:27:
I saw and examined the patient.
The MATERIALS PLANNER/PRODUCTION PLANNER or PA's note was reviewed and I agree with the note.
Comment: Patient seen in follow-up today, appeared much improved, mentating appropriately however, a few minutes after I left his room, he was noted to be having visual hallucinations. Is unclear the etiology for his encephalopathy, likely
multifactorial in nature. I feel from a liver standpoint, we have optimized him is much as we can. He was seen by psychiatry who feels that all of his medical comorbidities are playing a role and there is no primary psychiatric process that is
necessarily contributing. They recommended as needed Abilify.
He was evaluated by palliative care to discuss goals of care, patient's family is hoping to have some answers on why he continues to have these hallucinations, code status remains full code.
-c/w xifaxin and lactulose, uptitrate to 2-3 loose BMs per day-->despite optimizing regimen, continues to experience auditory and visual hallucinations
-Aldactone increased to 50mg daily, lasix 80 mg-- he is tolerating the aldactone thus far (previously d/c'ed due to painful gynecomastia)
His encephalopathy continues to be puzzling, now evaluated by psych, neuro and GI. EEG negative. Plan for LP today.
Original Note:
Today's Communication / Plan
-
still with hallucinations-- not clear if HE-- not similar to prior HE and normal ammonia, no improvement with Xifaxan and lactulose, HCT neg, s/p neuro eval
for psych eval
family updated
Assessment / Plan
-
&3yo presents with hx BELTRAN cirrhosis, GI bleed, TAVR, GERD, HTN, recent GIB at [facility] from 01/01/2024 through 01/05/2024 as he presented with abdominal distention, confusion and melena. He had a hemoglobin of 6. He was transfused 1 unit
of packed red blood cells given IV infusion and started on oral iron. He had an EGD which per his showed 'AVMs'. The patient was discharged with a hemoglobin in the 'mid sevens'. He also had a paracentesis when he was at [facility].
He had 3.2 L taken off. Hx HE was on Lactulose in past with diarrhea then change to Xifaxan. Now presents with hallucinations with worsening symptoms. Pt with recent start of Tramadol for back pain.
Impression:
hallucinations- visual and auditory
body tremors
hx HE on Xifaxan and Lactulose added
OB positive stool, recent EGD evaluation at [facility] -> 'AVMs' with 'Hgb 6-> mid 7s' given 1 unit PRBC, IV iron and po iron started (12/31-01/04/23), was having melena during that time
MASH cirrhosis
anemia
coagulopathy
History of GAVE/duodenal AVM
Chronic anemia
Pleural effusion (left) s/p thora with apical pneumo
History of TAVR
Plan:
pt with hallucination with visual and auditory symptom noted in exam yesterday with slight improvement today but then noted talking to person at bedside that was not there per nursing , Etiology unclear if atypical HE though ammonia level normal
since admission and remains oriented x 3, vs other-- trigger may be GI bleed vs other
acute onset per family and not similar to prior HE episode
01/11 HCT neg
-Neurology consultation appreciated discussed with Dr. Pacheco this am
will consult psych for any input with continued symptoms
4 stools over last 24 hours on Lactulose BID and Xifaxan BID
cont PPI
remains on abx with GI bleed and cirrhosis
-Continue Lasix and Aldactone
-No plans on endoscopic intervention at this time
hbg stable
current lasix 80mg daily and Aldactone 50mg daily(dose increased 12/19
-Follow-up with Dr. Cross as an outpatient.
s/p palliative care consult
updated and TT Dr. Blue and Dr. Jones
Subjective
Subjective
Date of Service: January 18, 2024
still with shakiness but remains oriented and more awake today -- no noted visual hallucination during exam but still asking about people talking overnight
Objective
Data Reviewed
Laboratory Data:
Laboratory Results
01/18/24 03:30
01/18/24 03:30
Laboratory Results
PT 19.1 Sec (11.4-14.6) H 01/18/24 03:30
INR 1.59 01/18/24 03:30
APTT 48.3 Sec (23.4-35.0) H 01/18/24 03:30
Phosphorus 2.6 mg/dl (2.5-4.5) 01/16/24 04:22
Magnesium 1.6 mg/dl (1.6-2.3) 01/16/24 04:22
Total Bilirubin 2.1 mg/dl (0.2-1.3) H 01/18/24 03:30
AST 78 U/L (17-59) H 01/18/24 03:30
ALT 24 U/L (0-50) 01/18/24 03:30
Alkaline Phosphatase 215 U/L (38-126) H 01/18/24 03:30
Vital Signs and I&O:
Vital Signs
Temp Pulse Resp BP Pulse Ox
98.5 F 80 13 102/59 94
01/18/24 03:53 01/18/24 08:23 01/17/24 10:05 01/18/24 08:23 01/17/24 20:47
I&O
01/17/24 01/18/24 01/19/24
06:59 06:59 06:59
Intake Total 960 / 960 720 / 720
Output Total 100 / 100 100 / 100
Balance 960 / 960 620 / 620 -100 / -100
Physical Exam
Physical Exam
HEENT: Anicteric and Moist mucous membranes
Cardiology: Normal Sinus Rhythm
Pulmonary: Clear
GI: Soft, Non Distended and Tender
Neuro: Other (oriented but still asking about people talking -- per staff seeing people at bedside )
[2024-01-18] MEDS: THIAMINE INJECTION 100 MG IV (09:36)
[2024-01-18] MEDS: NOVOLOG FLEXPEN-LOW RESISTANCE SC (09:36)
[2024-01-18] MEDS: STERILE WATER FOR INJECTION 20 ML IV (11:31)
[2024-01-18] MEDS: ROCEPHIN 2000 MG IV (11:31)
--- NOTE | 2024-01-18 11:33 | W.PN.PAL2 ---
Today's Communication
-
3
Assessment / Plan
-
Assessment/Plan:
Goals of care are treatment oriented. family is hoping to find out why he is still having hallucinations. Psychiatry evaluation ordered.
No change to code status
Reason for Admission
Illness Course/HPI
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 He was admitted to hospital on 01/13 due to worsening
confusion. He had not been taking his lactulose since august. He also had another hospital stay earlier in this month at [facility] for GI bleeding. Family report that he follows with Dr. Cross at [place], he underwent workup in 2022 for transplant
evaluation, but his MELD score was too low, and now with his age approaching 74, were told he would not be a candidate for transplant. At his baseline, apart from back pain issues he is independent of adls/iadls including driving, but in the past
month there has been changes with confusion.
Palliative Care Follow up. Met with patient and his daughter at bedside.
No significant improvement in mentation despite 2-3 days of regular lactulose use. Continues to be responding to nonthreating visual hallucinations - having conversations with old friends in the room. No other symptoms or issues apart from mentation
at this time.
Not on any sedating medications. Only major med change in the past month was increase in lexapro which has been discontinued earlier in the week. There is a family hx of dementia (his father around age of 80), but no fmhx of psychiatric illness that
they know of. Unclear cause of continued hallucinations - if not hepatic source - other neuro, metabolic/toxic, or psych? Psych eval was ordered today.
Discussed future planning for when eventually discharged including options for home based palliative care programs in their area. If he returns home rather than snf/rehab would need caregivers at home.
and daughters did discuss code status - remains full code at this time.
Functional Status & Support Systems
Current Functional Status:
Currently able to ambulate to bathroom with assist
Welt Treater/Family Support: Spouse Deepa
Review of Advanced Directives
Advanced Care Documentation Status: Complete
Type of Documentation: Living Will
Location of Advanced Care Documentation: [facility]
Surrogate Decision Maker (name & contact): Spouse Deepa
Preferences Regarding Medical Care at End of Life: At the end of life would focus on comfort care, currently FULL code in hospital
Objective Data
-
Objective Data:
Vital Signs
Temp Pulse Resp BP Pulse Ox
98.2 F 80 13 102/59 94
01/18/24 07:45 01/18/24 08:23 01/17/24 10:05 01/18/24 08:23 01/17/24 20:47
Laboratory Results
01/18/24 03:30
01/18/24 03:30
PT 19.1 Sec (11.4-14.6) H 01/18/24 03:30
INR 1.59 01/18/24 03:30
APTT 48.3 Sec (23.4-35.0) H 01/18/24 03:30
Hemoglobin A1c 5.4 % (4.0-5.6) 01/15/24 04:57
Ammonia < 9 umol/L (9-30) L 01/16/24 09:43
Total Protein 5.7 g/dl (6.3-8.2) L 01/18/24 03:30
Albumin 2.3 g/dl (3.5-5.0) L 01/18/24 03:30
Urine Color Yellow 01/14/24 14:51
Urine Clarity Clear (Clear) 01/14/24 14:51
Urine pH 8.0 (5.0-9.0) 01/14/24 14:51
Ur Specific [place] 1.015 (<1.030) 01/14/24 14:51
Urine Ketones Negative (Negative) 01/14/24 14:51
Urine Bilirubin Negative (Negative) 01/14/24 14:51
Palliative Performance Scale
Palliative Performance Scale:
PPS Level Ambulation Activity & Evidence of Disease Self Care Intake Conscious Level
100% Full Normal Activity & Work; Full Intake Full
No Evidence of Disease
90% Full Normal Activity & Work; Full Normal Full
Some Evidence of Disease
80% Full Normal Activity with Effort Full Normal or Full
Some Evidence of Disease Reduced
70% Reduced Unable Normal Job/Work Full Normal or Full
Significant Disease Reduced
60% Reduced Unable Hobby/Housework Occasional Normal or Full or Confusion
Significant Disease Assistance Reduced
50% Mainly Sit/Lie Unable to do Any Work Considerable Normal or Full or Confusion
Extensive Disease Assistance Req'd Reduced
40% Mainly in Bed Unable to do Most Activity Mainly Assistance Normal or Full or Drowsy;
Extensive Disease Reduced +/- Confusion
30% Totally Bed Unable to do Any Activity Total Care Normal or Full or Drowsy;
Bound Extensive Disease Reduced +/- Confusion
20% Totally Bed Bound Unable to do Any Activity Total Care Minimal to Full or Drowsy;
Extensive Disease Sips +/- Confusion
10% Totally Bed Bound Unable to do Any Activity Total Care Mouth Care Drowsy or Coma;
Extensive Disease Only +/- Confusion
0%
PPS Score Level: 50
Physical Exam
-
General: Well Developed and No Apparent Distress
HEENT: Moist Mucous Membranes
Neuro: Awake
Psych: Confused (responding to visual hallucinations)
Care Reviewed
Data Reviewed
Reviewed with: Family
Time
Start Date: 01/18/24
Start Time: 09:39
Stop Date: 01/18/24
Stop Time: 10:19
Time Spent:
30
--- NOTE | 2024-01-18 11:46 | CON.MD ---
Consultation - Medical
-
patient seen chart reviewed. discussed with alisson at bedside who provided much of hx and with dr sujata gonsalez. the patient is a 73 year old male admitted for worsening confusion. he has many serious medical illnesses including but not limited to liver
failure (daughter reports this is secondary to 'fatty liver' and that patient has NO hx of etoh abuse) with significant complications, severe anemia w hgb of 6 necessitating transfusion, cardiac issues ( he is s/p tavr, has chronic chf , prolonged
qtc) htn, hld, hx gi bleed with duodenal avm, ?renal cell carcinoma (d reports never bx but x ray finding being followed at [facility]...he was to have repeat cat this week but wound up at ). over the last month he has become increasingly
confused. alisson reports he was last at baseline over a month ago but in the last two weeks he is worse and is hallucinating (both visual and auditory). i witnessed him pointing to people who were not present and having conversations with them. he
was NOT unduly disturbed and seemed to enjoy it at times. sleep is fair according to alisson. appetite plus minus. 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
increasingly limited his life. he was placed on prozac which he took for a very short time. d reports NO prior psych history. he was not dx with dementia although it sounds like there was some cognitive decline in recent months although not dx
past psych hx none
medical hx see above patient w many complications of liver disease including ascites and he has undergone paracentesis. he has back pain secondary to lumbar disc issues he has in the past used opiates not currently also took flexeril at times
in the past not currently. hx tcp. hydrothorax. hyponatremia (133) hgb now is 7.9 bili 2.1 ast 78 alk phos 215 b12 folate tsh all are normal. cxr with no acute findings cultures negative eeg w diffuse slowing
patient has no hx primary eye disease eg macular glaucoma which could contribute to vis hendrickson
fh denied
substance abuse denied
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 then worked in [employer] grew up in [place]
mse alert and oriented to person and [facility] not to date. speech /thought process rambling and tangential clearly hallucinating aud and vis. mood is pleasant affect a bit labile no si aver intelligence likely impaired by some degree
of cognitive loss and encephalopathy insight judg lacking
dx delirium/tme secondary to underlying medical illness
recommendations this patient has so many underlying medical illnesses as well as likely a preexisting undiagnosed loss of cognitive functioning and all are contributing to delirium. this is not primarily psychiatric in my opinion. i do not see
that there would be any benefit to neuropsychological testing or counseling. treatment of the underlying illnesses and avoidance of sedating medication would be my recommendations. i would not order scheduled antipsychotics at this point but prn
abilify which is the best given liver issues if he is out of control and endangering himself. if he is using the prn with any regularity would then order raul medications. diiscussed w dr gonsalez and d getting the cat scan to address whether he does
indeed have kidney cancer as knowing this for sure would play a role in decisions made re further rx of his many illnesses . will follow
[2024-01-18] MEDS: ALDACTONE 50 MG PO (11:48)
[2024-01-18 12:17] LABS: Glucose - Point of Care 190 mg/dl (70-99)
[2024-01-18] MEDS: NOVOLOG FLEXPEN-LOW RESISTANCE 1 UNITS SC (13:16)
--- NOTE | 2024-01-18 13:43 | W.PN.HOSP.TC ---
Addendum entered and electronically signed by Shahid Jones MD 01/18/24 17:20:
while transferring from stretcher to bed, he threw himself on to the bed therefore, hitting the back of his head against the railing.
-no focal neuro defecits on exam
-following commands
if notted change in metnal status/focal defecits would obtain a stat ct brain at that time.
Original Note:
Today's Communication/Plan
-
MRI ordered
CT abdomen pelvis with without contrast to assess RCC
Neurology following
LP ordered
Psychiatry following
Risperidone for agitation as needed
Assessment / Plan
Assessment / Plan
NAD, resting comfortably in bed, able to follow commands, without focal defecits, hallucinating
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
Moist mucous membranes
JVD
CTA bilateral
Normal S1-S2 no murmurs
Soft nontender distended abdomen fluid wave bowel sounds active
No peripheral pitting edema
Moves extremities spontaneously
AAOx2, 5/5 motor strenght in UE and LE, good arts administrator or manager strenght
DME which could be multifactorial in the setting of hepatic encephalopathy or possibly undiagnosed underlying dementia with delirium producing the hallucinations versus a paraneoplastic syndrome in the setting of known RCC
Hepatic encephalopathy. Continue lactulose for goal bowel movements 2-3 daily. Continue rifaximin. Stressed importance of both agents to daughter and Mr. Ann.
TME - still on going intermittent, check eeg, consult neuro
- WIll consult Psych for completeness.
- -Plans to start low-dose antipsychotic
-Neurology reconsulted, opting to obtain LP
- -MRI ordered however has severe claustrophobia do not want to give sedative as this would likely worsen his mental status
-GI and myself both agree that he is medically optimized from hepatic encephalopathy with lactulose rifaximin meeting goal bowel movements
Decompensated cirrhosis presenting with hepatic encephalopathy and ascites. Continue lactulose rifaximin IR consult for paracentesis. Obtain fluid studies cytology culture.
If requires greater than more than 4.5 L removed would provide 1 albumin back for every liter removed. Please see GI notes for recommendation.
Continue Aldactone and Lasix. Will discuss with GI increasing Aldactone dose
He will need to follow up with Hepatology as an outpatient
Pleural effusion noted on abdominal ultrasound. Will obtain chest x-ray to formally evaluate. Expect related to ascites and would improve with drainage of ascitic fluid via paracentesis. Also on Lasix. We will repeat/obtain chest x-ray in the
a.m. to further evaluate. If still present then can consult IR for potential thoracentesis however should be noted he is asymptomatic from this and not requiring supplemental oxygen
-Cxr from this AM - large pleural effusion still present
- - IRAD consult for thora
- - - COncern for PTX noted on CXR, IRAD mallory trapped lung, (not symptomatic nor reuriing o2), IRAD rec repeat CXR in the AM
Pancytopenia secondary to underlying cirrhosis. Monitor for now. Outpatient hematology follow-up
Chronic hyponatremia due to underlying cirrhosis. Fluid restrict.
Hypokalemia improved this a.m.
Diabetes type 2 with hyperglycemia. On DC should stop Thiazolidediones. Start SGLT2i now. Conitnue SSI
HLD continue statin
Anticipated Discharge: > 48 hours
Subjective/Interval History
-
Date of Service: January 18, 2024
Seen and examined. Still hallucinating.
2 daughters at bedside along with psychiatry
Will start antipsychotic per psychiatry recommendations
Objective Data
-
Labs:
Laboratory Results
01/18/24
03:30
WBC 7.2
Hgb 7.9 L
Hct 25.0 L
Plt Count 114 L
PT 19.1 H
INR 1.59
APTT 48.3 H
Sodium 133 L
Potassium 3.8
Chloride 103
Carbon Dioxide 25
BUN 20
Creatinine 0.9
Glucose 131 H
Calcium 8.2 L
Total Bilirubin 2.1 H
AST 78 H
ALT 24
Alkaline Phosphatase 215 H
Vital Signs:
Vital Signs
Temp Pulse Resp BP Pulse Ox
98.2 F 79 13 115/44 94
01/18/24 07:45 01/18/24 11:48 01/17/24 10:05 01/18/24 11:48 01/17/24 20:47
I&O
01/17/24 01/18/24 01/19/24
06:59 06:59 06:59
Intake Total 960 / 960 720 / 720
Output Total 100 / 100 100 / 100
Balance 960 / 960 620 / 620 -100 / -100
[2024-01-18] MEDS: OMNIPAQUE 50 ML PO (14:49)
[2024-01-18 16:25] LABS: Glucose - Point of Care 230 mg/dl (70-99)
--- NOTE | 2024-01-18 17:44 | CM ---
Patient from [facility] with Hx BELTRAN Cirrhosis with Dx hepatic encephalopathy, ascites, pleural effusion. Room air. Receiving IV Abx, Lactulose. CT Abdomen/pelvis today. Seen by Psych - delirium/TME. Seen by Palliative
Care- GOC - family wants to determine cause hallucinations. Patient hit head against bedrail - plan MRI Brain. PT & OT recommend HH. Per nursing; Ox3, forgetfull, having hallucinations. Medsitter.
CM continuing to follow.
Plan [facility] SNF when medically ready.
[2024-01-18] MEDS: NOVOLOG FLEXPEN-LOW RESISTANCE 2 UNITS SC (18:00)
[2024-01-18] MEDS: ABILIFY 2 MG PO (20:06)
[2024-01-18 21:30] LABS: Glucose - Point of Care 162 mg/dl (70-99)
--- NOTE | 2024-01-18 23:08 | PTCARENOTE ---
Assumed care of pt from previous RN with medsitter at bedside. Pt disoriented, having visual hallucinations. Presents with garbled speech and some expressive aphasia. Pt mumbles consistently, most of which is unintelligible or inappropriate for
situation. Presents with tremor and limbs appear restless, pt constantly pulling at blankets and moving limbs around. Pt makes attempts to get out of bed, throws legs over side rail. Pt is able to ambulate to bathroom for BM with assist x1, but is
unsteady. Able to take oral meds in applesauce. SR on hand filer balance wheel
[2024-01-19] VITALS (17 sets, daily range): BP systolic 78–127; BP diastolic 42–102; PULSE 112–113; BMI 27.9
[2024-01-19 05:40] LABS: Hematocrit 24.8 % (39.0-52.0); Mean Corp Hgb Conc. 32.3 g/dL (33.0-37.0); Mean Corpuscular Hgb 27.8 pg (27.0-31.0); Mean Corpuscular Volume 86.1 fL (80.0-94.0); Platelet Count 115 10^3/uL (130-400); Red Blood Cell Count 2.88 10^6/uL (4.70-6.10); Red Cell Dist. Width 17.2 % (11.5-14.5); White Blood Cell Count 8.1 10^3/uL (4.8-10.8)
[2024-01-19 05:43] LABS: INR 1.67; PT 19.8 Sec (11.4-14.6)
[2024-01-19 05:44] LABS: APTT 47.2 Sec (23.4-35.0)
[2024-01-19 05:52] LABS: ALT (SGPT) 26 U/L (0-50); AST (SGOT) 77 U/L (17-59); Albumin 2.4 g/dl (3.5-5.0); Alkaline Phosphatase 212 U/L (38-126); Blood Urea Nitrogen 17 mg/dl (9-20); Calcium 8.6 mg/dl (8.4-10.2); Carbon Dioxide 29 mmol/L (22-30); Chloride 104 mmol/L (98-107); Estimated Creatinine Clearance 58 ml/min; Glucose 144 mg/dl (70-99); Sodium 136 mmol/L (135-145); Total Bilirubin 2.5 mg/dl (0.2-1.3); Total Protein 5.6 g/dl (6.3-8.2); eGFR > 60.00
--- NOTE | 2024-01-19 07:02 | W.PN.NEURO.1 ---
Today's Communication / Plan
-
-Proceed with LP for workup of encephalopathy and hallucinations
-Minimize sedating medications and continue treatments for cirrhosis
Neuro Assessment/Plan
Assessment
73-year-old male with a history of cirrhosis presented to hospital with confusion hallucinations fatigue and generalized weakness along with abdominal distention.
Continue to feel we are seeing the effects of an improving hepatic encephalopathy or other toxic metabolic encephalopathy based on neurologic examination of fluctuating attention, mild tremor/asterixis, no focal neurologic deficits along with CT
head not showing any significant structural abnormality.
Best to keep in mind that a normal ammonia level does not rule out hepatic encephalopathy in the correct clinical context
Clinical history and EEG not supportive of seizures as etiology and clinically he hasn't sounded like seizure episodes
No signs suggestive of GEODETIC ADVISOR infection
Patient denies alcohol or drug use not seeming to have vital signs suggestive of withdrawal but would keep this in mind
Not on many sedating mediations
Repeated episodes of hepatic encephalopathy and metabolic disturbance could create lasting cognitive effects
Unclear on if there could be a baseline cognitive impairment
history and Exam not very supportive of ischemic stroke
Other considerations for etiology could be nutritional or vitamin deficiencies, infections
Subjective/Objective
Subjective Data
Date of Service: January 19, 2024
No acute events, denies complaints, some occasional visual hallucinations, denies headache
Objective Data
Vital Signs
Temp Pulse Resp BP Pulse Ox
98.5 F 121 13 127/90 97
01/19/24 03:46 01/19/24 06:00 01/17/24 10:05 01/19/24 04:00 01/18/24 20:27
Lab Results
01/19/24 04:54
01/19/24 04:54
PT 19.8 Sec (11.4-14.6) H 01/19/24 04:54
INR 1.67 01/19/24 04:54
APTT 47.2 Sec (23.4-35.0) H 01/19/24 04:54
Sodium 136 mmol/L (135-145) 01/19/24 04:54
Potassium 4.0 mmol/L (3.5-5.1) 01/19/24 04:54
BUN 17 mg/dl (9-20) 01/19/24 04:54
Glucose 144 mg/dl (70-99) H 01/19/24 04:54
Calcium 8.6 mg/dl (8.4-10.2) 01/19/24 04:54
Phosphorus 2.6 mg/dl (2.5-4.5) 01/16/24 04:22
Vitamin B12 > 1000 pg/ml (239-931) H 01/16/24 04:22
Patient Allergies
cyclobenzaprine Allergy (Verified 01/14/24 13:41)
'Out of it'
oxycodone [From OxyContin] Allergy (Verified 01/14/24 13:41)
'Out of it'
Review of Systems
-
History Source: Patient
All other systems: Reviewed and negative
Constitutional: No Symptoms
EENT: No Symptoms Reported
Respiratory: No Symptoms
Cardiac: No Symptoms
Abdomen/GI: No Symptoms
Genitourinary: No Symptoms
Musculoskeletal: No Symptoms
Skin: No Symptoms
Neuro: See existing Neuro Note
Endocrine: No Symptoms
Hematologic / Lymphatic: No Symptoms
Allergy / Immunology: No Symptoms
Physical Exam
-
General: Comfortable and Appears Chronically Ill
Eyes: No Ptosis
HEENT: Normocephalic
Neck: No Bruits Bilaterally
Respiratory: Clear to Auscultation
Cardiac: Regular Rhythm
GI: Non-tender and Distended
Skin: Warm and Dry; Negative Rash
Psych: Negative Agitated
Extended Neurological Exam
Attention Span & Concentration: Awake, Alert, Interactive and Other (Names months of year forwards, conversational, some inattention)
Memory: Reduced
Tremor: Hand Tremor Absent
Involuntary Movement: None
Speech: Quality Unremarkable and Quantity Unremarkable; Negative Expressive Aphasia, Receptive Aphasia or Dysarthric
Cranial Nerve II: Left Eye: Pupillary Reactivity Unremarkable and Pupillary Size Unremarkable
Cranial Nerve II: Right Eye: Pupillary Reactivity Unremarkable and Pupillary Size Unremarkable
Cranial Nerves III, IV, : Extraocular Movement: Extraocular Movement Full in all Directions
Cranial Nerve VII: Facial Symmetry: Normal Facial Symmetry
Muscle Strength, Overall: Full Throughout
Touch Sensation: Unremarkable
Babinski Sign: Absent Bilaterally
[2024-01-19 08:14] LABS: Glucose - Point of Care 172 mg/dl (70-99)
[2024-01-19] MEDS: NOVOLOG FLEXPEN-LOW RESISTANCE 1 UNITS SC ×2 (08:18→11:47)
[2024-01-19] MEDS: ABILIFY 2 MG PO (08:20)
[2024-01-19] MEDS: DUPHALAC/CHRONULAC PO ×2 (08:21→20:23)
[2024-01-19] MEDS: PROTONIX IV 40 MG IV ×2 (08:21→20:29)
[2024-01-19] MEDS: NSS (PRESERVATIVE FREE) 10 ML IV ×2 (08:22→20:29)
[2024-01-19] MEDS: LASIX 80 MG PO (08:25)
[2024-01-19] MEDS: FARXIGA 10 MG PO (08:25)
[2024-01-19] MEDS: CRESTOR 20 MG PO (08:25)
[2024-01-19] MEDS: MAGNESIUM OXIDE 250 MG PO (08:25)
[2024-01-19] MEDS: XIFAXAN 550 MG PO ×2 (08:26→20:29)
[2024-01-19] MEDS: FLOMAX 0.4 MG PO (08:26)
[2024-01-19] MEDS: LOW STRENGTH ASPIRIN 81 MG PO (08:26)
[2024-01-19] MEDS: FEOSOL 325 MG PO (08:27)
[2024-01-19] MEDS: KCL 20 MEQ PO ×2 (08:27→20:28)
[2024-01-19] MEDS: THIAMINE INJECTION 100 MG IV (10:05)
[2024-01-19] MEDS: STERILE WATER FOR INJECTION 20 ML IV (10:09)
[2024-01-19] MEDS: ROCEPHIN 2000 MG IV (10:10)
--- NOTE | 2024-01-19 10:32 | PTCARENOTE ---
Pt is AAOx3 with periods of confusion and forgetfulness. Swings legs OOB reaches out in the air. Family now here. pt OOB in chair. Urinates frequently having small frequent formed BMs. Worked with therapy
[2024-01-19 11:12] LABS: Glucose - Point of Care 195 mg/dl (70-99)
[2024-01-19] MEDS: ALDACTONE 50 MG PO (11:46)
--- NOTE | 2024-01-19 12:39 | PTCARENOTE ---
#30 condom cath placed as pt voids every 20-30 mins, pt went to IR for spinal tap via streycher , family followed along as they need to consent
--- NOTE | 2024-01-19 13:38 | W.PN.HOSP.TC ---
Today's Communication/Plan
-
.
Assessment / Plan
Assessment / Plan
NAD, resting comfortably in bed, able to follow commands, without focal defecits, hallucinating
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
Moist mucous membranes
JVD
CTA bilateral
Normal S1-S2 no murmurs
Soft nontender distended abdomen fluid wave bowel sounds active
No peripheral pitting edema
Moves extremities spontaneously
AAOx2, 5/5 motor strenght in UE and LE, good student financial aid manager strenght
DME which could be multifactorial in the setting of hepatic encephalopathy or possibly undiagnosed underlying dementia with delirium producing the hallucinations versus a paraneoplastic syndrome in the setting of known RCC
Hepatic encephalopathy. Continue lactulose for goal bowel movements 2-3 daily. Continue rifaximin. Stressed importance of both agents to daughter and Mr. Ann.
TME - still on going intermittent, check eeg, consult neuro
- WIll consult Psych for completeness.
- -Plans to start low-dose antipsychotic
-Neurology reconsulted, opting to obtain LP
- -MRI ordered however has severe claustrophobia do not want to give sedative as this would likely worsen his mental status
-GI and myself both agree that he is medically optimized from hepatic encephalopathy with lactulose rifaximin meeting goal bowel movements
Decompensated cirrhosis presenting with hepatic encephalopathy and ascites. Continue lactulose rifaximin IR consult for paracentesis. Obtain fluid studies cytology culture.
If requires greater than more than 4.5 L removed would provide 1 albumin back for every liter removed. Please see GI notes for recommendation.
Continue Aldactone and Lasix. Will discuss with GI increasing Aldactone dose
He will need to follow up with Hepatology as an outpatient
Pleural effusion noted on abdominal ultrasound. Will obtain chest x-ray to formally evaluate. Expect related to ascites and would improve with drainage of ascitic fluid via paracentesis. Also on Lasix. We will repeat/obtain chest x-ray in the
a.m. to further evaluate. If still present then can consult IR for potential thoracentesis however should be noted he is asymptomatic from this and not requiring supplemental oxygen
-Cxr from this AM - large pleural effusion still present
- - IRAD consult for thora
- - - COncern for PTX noted on CXR, IRAD mallory trapped lung, (not symptomatic nor reuriing o2), IRAD rec repeat CXR in the AM
Pancytopenia secondary to underlying cirrhosis. Monitor for now. Outpatient hematology follow-up
Chronic hyponatremia due to underlying cirrhosis. Fluid restrict.
Hypokalemia improved this a.m.
Diabetes type 2 with hyperglycemia. On DC should stop Thiazolidediones. Start SGLT2i now. Conitnue SSI
HLD continue statin
LP does not show any acute pathology, unable to obtain MRI of the same abdomen likely due to CVA as exam is nonfocal, CT brain without evidence of bleed that was previously done earlier in admission, EEG does complete her earlier in admission
without evidence of seizure activity. Therefore I am suspecting that hepatic encephalopathy unmask underlying undiagnosed dementia with delirium. And therefore at this point in time I would begin discharge planning if LP does not show any acute
pathology as it would be most consistent with said diagnosis of dementia with delirium.
I do believe he would benefit from SNF and eventually memory unit.
Anticipated Discharge: Within 24 hours
Subjective/Interval History
-
Date of Service: January 19, 2024
Seen and examined. Spoke with both and daughter at bedside.
Still very confused hallucinating. Did not sleep much overnight. Reported has not slept well the last 2 nights
Objective Data
-
Labs:
Laboratory Results
01/19/24
04:54
WBC 8.1
Hgb 8.0 L
Hct 24.8 L
Plt Count 115 L
PT 19.8 H
INR 1.67
APTT 47.2 H
Sodium 136
Potassium 4.0
Chloride 104
Carbon Dioxide 29
BUN 17
Creatinine 1.0
Glucose 144 H
Calcium 8.6
Total Bilirubin 2.5 H
AST 77 H
ALT 26
Alkaline Phosphatase 212 H
Vital Signs:
Vital Signs
Temp Pulse Resp BP Pulse Ox
97.8 F 85 16 109/57 95
01/19/24 13:14 01/19/24 13:14 01/19/24 13:14 01/19/24 13:14 01/19/24 13:14
I&O
01/18/24 01/19/24 01/20/24
06:59 06:59 06:59
Intake Total 720 / 720 120 / 120
Output Total 100 / 100 275 / 275 700 / 700
Balance 620 / 620 -275 / -275 -580 / -580
[2024-01-19 14:01] LABS: CSF Color Colorless; CSF Tube # 4
[2024-01-19 14:02] LABS: CSF Clarity Clear
--- NOTE | 2024-01-19 14:07 | CM ---
Addendum entered by Mabel Sunshine RN 01/19/24 17:13:
Second phone call to [facility] (ph [phone]); left message asking for callback.
Plan [facility] when medically ready and SNF accepts.
Original Note:
Patient with Hx BELTRAN Cirrhosis with Dx confusion/encephalopathy, s/p LP today. Room air. Receiving IV Abx. Seen by Psych. PT & OT recommend skilled rehab. Per nursing; confused, anxious, forgetful, more tremulous. Medsitter.
Request from Dr Jones to see if SNF can accept the patient back today.
Phone call to [facility] (ph [phone]); left message asking for callback to provide update.
Plan [facility] when medically ready and SNF accepts.
--- NOTE | 2024-01-19 14:19 | PTCARENOTE ---
Pt back from IR, must lay flat till 330 pm . Condom cath replaced #25
[2024-01-19 14:22] LABS: Spinal Fluid Glucose 101 mg/dl (40-70); Spinal Fluid Protein 52 mg/dl (12-60)
[2024-01-19 14:24] LABS: White Cell Count/CSF 1 mm^3 (0-5)
[2024-01-19 14:25] LABS: Red Cell Count/CSF 2 mm^3
--- NOTE | 2024-01-19 14:57 | W.PN.UPDATE ---
Update Note
Progress Note Update
patient seen chart reviewed. when i saw him he had just returned from lumbar puncture. he had some difficulty accepting direction to keep his body in a lying down position especially his head though we explained to him need to avoid post lp
headache. the patient did seem to be more tremulous than he had yesterday. nursing reported he was up much of the night w diarrhea presumably due to lactulose and she did give him a prn earlier this am. i doubt one dose of abilify is causing this
tremulousness but would use abilify only for agitation that risks harm to self or others. spoke to cm who asked if i thought he was ready to return to or. it is my impression he will need at the very least a memory care unit but looking at him
today it is doubtful they could manage him as of yet. he seems to me to remain in a delirious state. if it were just the hallucinations they might manage him but he is very unsteady and unable to engage in any meaningful interaction. from what his
family told me this is not his baseline.
--- NOTE | 2024-01-19 15:15 | W.PN.GI.CBS2 ---
Today's Communication / Plan
-
follow up dr cross, lactulose/xifaxan, neuro/psych work up, gi signing off
Assessment / Plan
-
&3yo presents with hx BELTRAN cirrhosis, GI bleed, TAVR, GERD, HTN, recent GIB at [facility] from 01/01/2024 through 01/05/2024 as he presented with abdominal distention, confusion and melena. He had a hemoglobin of 6. He was transfused 1 unit
of packed red blood cells given IV infusion and started on oral iron. He had an EGD which per his showed 'AVMs'. The patient was discharged with a hemoglobin in the 'mid sevens'. He also had a paracentesis when he was at [facility].
He had 3.2 L taken off. Hx HE was on Lactulose in past with diarrhea then change to Xifaxan. Now presents with hallucinations with worsening symptoms. Pt with recent start of Tramadol for back pain.
Impression:
hallucinations- visual and auditory
body tremors
hx HE on Xifaxan and Lactulose added
OB positive stool, recent EGD evaluation at [facility] -> 'AVMs' with 'Hgb 6-> mid 7s' given 1 unit PRBC, IV iron and po iron started (12/31-01/04/23), was having melena during that time
MASH cirrhosis
anemia
coagulopathy
History of GAVE/duodenal AVM
Chronic anemia
Pleural effusion (left) s/p thora with apical pneumo
History of TAVR
Plan:
pt with hallucination with visual and auditory symptom - unlikely to be PSE, normal ammonia this is not c/w PSE; neuro and psych work up appreciate their input
lactulose (monitor BM goal 3-4) and xifaxan
Continue Lasix and Aldactone
I d/w Dr. Cross he is aware pt is admitted
I d/w family at bedside pt to follow up with Dr. Cross upon discharge
GI signing off pls call with ?s
Total Time Spent with Patient (in minutes): 35
Subjective
Subjective
Date of Service: January 19, 2024
Diarrhea overnight from lactulose
no other events overnight
Objective
Data Reviewed
Laboratory Data:
Laboratory Results
01/19/24 04:54
01/19/24 04:54
Laboratory Results
PT 19.8 Sec (11.4-14.6) H 01/19/24 04:54
INR 1.67 01/19/24 04:54
APTT 47.2 Sec (23.4-35.0) H 01/19/24 04:54
Phosphorus 2.6 mg/dl (2.5-4.5) 01/16/24 04:22
Magnesium 1.6 mg/dl (1.6-2.3) 01/16/24 04:22
Total Bilirubin 2.5 mg/dl (0.2-1.3) H 01/19/24 04:54
AST 77 U/L (17-59) H 01/19/24 04:54
ALT 26 U/L (0-50) 01/19/24 04:54
Alkaline Phosphatase 212 U/L (38-126) H 01/19/24 04:54
Vital Signs and I&O:
Vital Signs
Temp Pulse Resp BP Pulse Ox
97.8 F 119 16 109/61 95
01/19/24 13:14 01/19/24 14:08 01/19/24 13:14 01/19/24 14:09 01/19/24 13:14
I&O
01/18/24 01/19/24 01/20/24
06:59 06:59 06:59
Intake Total 720 / 720 120 / 120
Output Total 100 / 100 275 / 275 700 / 700
Balance 620 / 620 -275 / -275 -580 / -580
Physical Exam
Physical Exam
GI: Non Distended and Non Tender
Neuro: Other (confused)
--- NOTE | 2024-01-19 16:00 | PTCARENOTE ---
Family at bedside ordering dinner for pt, he pulled off condom cath, Now siting up in bed
[2024-01-19] MEDS: NOVOLOG FLEXPEN-LOW RESISTANCE SC (16:28)
[2024-01-19 16:37] LABS: Glucose - Point of Care 148 mg/dl (70-99)
[2024-01-19 21:30] LABS: Glucose - Point of Care 201 mg/dl (70-99)
[2024-01-20] VITALS (13 sets, daily range): BP systolic 81–140; BP diastolic 40–87; BMI 27.7
[2024-01-20 05:17] LABS: Hematocrit 25.2 % (39.0-52.0); Hemoglobin 8.2 g/dL (13.0-18.0); Mean Corp Hgb Conc. 32.5 g/dL (33.0-37.0); Mean Corpuscular Hgb 28.7 pg (27.0-31.0); Mean Corpuscular Volume 88.1 fL (80.0-94.0); Mean Platelet Volume 11.3 fL (7.4-10.4); Platelet Count 129 10^3/uL (130-400); Red Blood Cell Count 2.86 10^6/uL (4.70-6.10); White Blood Cell Count 7.1 10^3/uL (4.8-10.8)
[2024-01-20 05:27] LABS: INR 1.67; PT 19.5 Sec (11.4-14.6)
[2024-01-20 05:28] LABS: APTT 49.5 Sec (23.4-35.0)
[2024-01-20 05:43] LABS: ALT (SGPT) 26 U/L (0-50); AST (SGOT) 79 U/L (17-59); Albumin 2.4 g/dl (3.5-5.0); Alkaline Phosphatase 206 U/L (38-126); Blood Urea Nitrogen 19 mg/dl (9-20); Calcium 8.4 mg/dl (8.4-10.2); Carbon Dioxide 27 mmol/L (22-30); Chloride 104 mmol/L (98-107); Estimated Creatinine Clearance 65 ml/min; Glucose 130 mg/dl (70-99); Potassium 4.2 mmol/L (3.5-5.1); Sodium 136 mmol/L (135-145); Total Bilirubin 2.3 mg/dl (0.2-1.3); Total Protein 5.9 g/dl (6.3-8.2); eGFR > 60.00
[2024-01-20 07:52] LABS: Glucose - Point of Care 158 mg/dl (70-99)
--- NOTE | 2024-01-20 09:23 | W.PN.NEURO.1 ---
Today's Communication / Plan
-
Continue aspirin 81 mg daily
Continue antipsychotics as per psychiatry
Continue rifaximin
Continue rosuvastatin
May now discontinue thiamine
Neuro Assessment/Plan
Assessment
73-year-old male with a history of cirrhosis presented to hospital with confusion hallucinations fatigue and generalized weakness along with abdominal distention.
Most likely effects of an improving hepatic encephalopathy or other toxic metabolic encephalopathy based on neurologic examination of fluctuating attention, mild tremor/asterixis, no focal neurologic deficits along with CT head not showing any
significant structural abnormality.
Best to keep in mind that a normal ammonia level does not rule out hepatic encephalopathy in the correct clinical context
Clinical history, lumbar puncture, and EEG not supportive of seizures as etiology and clinically hasn't sounded like seizure episodes
Plan
Continue aspirin 81 mg daily
Continue antipsychotics as per psychiatry
Continue rifaximin
Continue rosuvastatin
May now discontinue thiamine
Will follow as outpatient, as needed
Subjective/Objective
Subjective Data
Date of Service: January 20, 2024
Objective Data
Vital Signs
Temp Pulse Resp BP Pulse Ox
37.0 C 87 16 84/54 97
01/20/24 07:08 01/20/24 08:06 01/19/24 13:14 01/20/24 08:06 01/19/24 20:50
Lab Results
01/20/24 05:04
01/20/24 05:04
PT 19.5 Sec (11.4-14.6) H 01/20/24 05:04
INR 1.67 01/20/24 05:04
APTT 49.5 Sec (23.4-35.0) H 01/20/24 05:04
Sodium 136 mmol/L (135-145) 01/20/24 05:04
Potassium 4.2 mmol/L (3.5-5.1) 01/20/24 05:04
BUN 19 mg/dl (9-20) 01/20/24 05:04
Glucose 130 mg/dl (70-99) H 01/20/24 05:04
Calcium 8.4 mg/dl (8.4-10.2) 01/20/24 05:04
Phosphorus 2.6 mg/dl (2.5-4.5) 01/16/24 04:22
Vitamin B12 > 1000 pg/ml (239-931) H 01/16/24 04:22
Patient Allergies
cyclobenzaprine Allergy (Verified 01/14/24 13:41)
'Out of it'
oxycodone [From OxyContin] Allergy (Verified 01/14/24 13:41)
'Out of it'
Data Reviewed
-
EEG: Report Reviewed
Labs: Report Reviewed
Reviewed with: Physician
Old Records: Summarized
[2024-01-20] MEDS: NOVOLOG FLEXPEN-LOW RESISTANCE 1 UNITS SC ×2 (10:04→18:44)
[2024-01-20] MEDS: FLOMAX 0.4 MG PO (10:06)
[2024-01-20] MEDS: FEOSOL 325 MG PO (10:07)
[2024-01-20] MEDS: LASIX 80 MG PO (10:07)
[2024-01-20] MEDS: FARXIGA 10 MG PO (10:07)
[2024-01-20] MEDS: DUPHALAC/CHRONULAC 20 GRAMS PO ×2 (10:07→21:00)
[2024-01-20] MEDS: CRESTOR 20 MG PO (10:08)
[2024-01-20] MEDS: MAGNESIUM OXIDE 250 MG PO (10:08)
[2024-01-20] MEDS: XIFAXAN 550 MG PO ×2 (10:08→21:00)
[2024-01-20] MEDS: KCL 20 MEQ PO ×2 (10:09→21:00)
[2024-01-20] MEDS: LOW STRENGTH ASPIRIN 81 MG PO (10:09)
[2024-01-20] MEDS: PROTONIX IV 40 MG IV (10:17)
[2024-01-20] MEDS: NSS (PRESERVATIVE FREE) 10 ML IV (10:18)
[2024-01-20] MEDS: STERILE WATER FOR INJECTION IV (10:18)
[2024-01-20] MEDS: THIAMINE INJECTION IV (10:19)
--- NOTE | 2024-01-20 11:04 | W.PN.HOSP.TC ---
Addendum entered and electronically signed by Shahid Jones MD 01/20/24 13:39:
Unfortunate, continues to be very rambunctious. Unable to discontinue MedSitter
Discussed code status, Will let me know later today if they want to continue Full Code or change to DNR/DNI
Unlikely, to go towards dc as his mental status and how rambunctious he is will not allow him to come off of MedSitter which needs to be off for more 24hrs
Psych has started prn ablify
Discussed potentially transitioning to hospice. Family is not there yet. Bridgette his daughter will be going away on Monday for the week.
-Unlikely decision to be made about hospice. If one is made the end stage condiiton would be Cirrhosis
Original Note:
Today's Communication/Plan
-
Unable to obtain MRI as he will not sit still for, claustrophobia, remains altered and likely providing him with sedative will further worsen his mental status. Family agreeable to hold off on providing him with any type of sedative at this point
in time.
Mental status likely a snowball effect from hepatic encephalopathy unmasking dementia with delirium.
Continue antipsychotics per psychiatry recommendation
DC med sitter
At this time�begin planning for dispo to memory unit/SNF at his previous assisted living facility/[facility] community with his .
Assessment / Plan
Assessment / Plan
NAD, resting comfortably in bed, able to follow commands, without focal defecits, hallucinating
Scleral anicteric, cleaning validation consultant lateral border some bruising
Moist mucous membranes
JVD
CTA bilateral
Normal S1-S2 no murmurs
Soft nontender distended abdomen fluid wave bowel sounds active
No peripheral pitting edema
Moves extremities spontaneously
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
DME which could be multifactorial in the setting of hepatic encephalopathy or possibly undiagnosed underlying dementia with delirium producing the hallucinations versus a paraneoplastic syndrome in the setting of known RCC
Hepatic encephalopathy. Continue lactulose for goal bowel movements 2-3 daily. Continue rifaximin. Stressed importance of both agents to daughter and Mr. Ann.
TME - still on going intermittent, check eeg, consult neuro
- WIll consult Psych for completeness.
- -Plans to start low-dose antipsychotic
-Neurology reconsulted
- -I have performed LP on 01/19/2024. Results reviewed. Not consistent with meningitis. Glucose is slightly high however was previously hyperglycemic during the day likely as a result. Neurology continues to follow
- -MRI ordered however has severe claustrophobia do not want to give sedative as this would likely worsen his mental status
-GI and myself both agree that he is medically optimized from hepatic encephalopathy with lactulose rifaximin meeting goal bowel movements
Decompensated cirrhosis presenting with hepatic encephalopathy and ascites. Continue lactulose rifaximin IR consult for paracentesis. Obtain fluid studies cytology culture.
If requires greater than more than 4.5 L removed would provide 1 albumin back for every liter removed. Please see GI notes for recommendation.
Continue Aldactone and Lasix. Will discuss with GI increasing Aldactone dose
He will need to follow up with Hepatology as an outpatient
Pleural effusion noted on abdominal ultrasound. Will obtain chest x-ray to formally evaluate. Expect related to ascites and would improve with drainage of ascitic fluid via paracentesis. Also on Lasix. We will repeat/obtain chest x-ray in the
a.m. to further evaluate. If still present then can consult IR for potential thoracentesis however should be noted he is asymptomatic from this and not requiring supplemental oxygen
-Cxr from this AM - large pleural effusion still present
- - IRAD consult for thora
- - - COncern for PTX noted on CXR, IRAD mallory trapped lung, (not symptomatic nor reuriing o2)
Pancytopenia secondary to underlying cirrhosis. Monitor for now. Outpatient hematology follow-up
Chronic hyponatremia due to underlying cirrhosis. Fluid restrict.
Hypokalemia improved this a.m.
Diabetes type 2 with hyperglycemia. On DC should stop Thiazolidediones. Start SGLT2i now. Conitnue SSI
HLD continue statin
LP does not show any acute pathology, unable to obtain MRI of the same abdomen likely due to CVA as exam is nonfocal, CT brain without evidence of bleed that was previously done earlier in admission, EEG does complete her earlier in admission
without evidence of seizure activity. Therefore I am suspecting that hepatic encephalopathy unmask underlying undiagnosed dementia with delirium. And therefore at this point in time I would begin discharge planning if LP does not show any acute
pathology as it would be most consistent with said diagnosis of dementia with delirium.
I do believe he would benefit from SNF and eventually memory unit.
Anticipated Discharge: 24 - 48 hours
Subjective/Interval History
-
Date of Service: January 20, 2024
Seen and examined. Clinically unchanged. Per nursing was little bit alarmed with that however at the time of my evaluation less restless did not remember who I was was hallucinating
Objective Data
-
Labs:
Laboratory Results
01/20/24
05:04
WBC 7.1
Hgb 8.2 L
Hct 25.2 L
Plt Count 129 L
PT 19.5 H
INR 1.67
APTT 49.5 H
Sodium 136
Potassium 4.2
Chloride 104
Carbon Dioxide 27
BUN 19
Creatinine 0.9
Glucose 130 H
Calcium 8.4
Total Bilirubin 2.3 H
AST 79 H
ALT 26
Alkaline Phosphatase 206 H
Vital Signs:
Vital Signs
Temp Pulse Resp BP Pulse Ox
98.6 F 87 16 84/54 97
01/20/24 07:08 01/20/24 08:06 01/19/24 13:14 01/20/24 08:06 01/19/24 20:50
I&O
01/19/24 01/20/24 01/21/24
06:59 06:59 06:59
Intake Total 360 / 360
Output Total 275 / 275 1300 / 1300
Balance -275 / -275 -940 / -940
[2024-01-20 12:08] LABS: Glucose - Point of Care 225 mg/dl (70-99)
[2024-01-20] MEDS: NOVOLOG FLEXPEN-LOW RESISTANCE 2 UNITS SC (15:29)
[2024-01-20] MEDS: ALDACTONE 50 MG PO (15:29)
--- NOTE | 2024-01-20 16:27 | W.PN.UPDATE ---
Update Note
Progress Note Update
Pt seen & evaluated at bedside, chart reviewed.Remains quite confused, is unable to meaningfully answer my questions - continuously moving around his bed and needed redirection. Not oriented. Has required medical sitter which prevents him from
returning to NH as he is intermittently agitated.
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 May help settle agitation so he can return to NH as longer time in hospital can further worsen
delirium/agitation.
[2024-01-20 18:27] LABS: Glucose - Point of Care 151 mg/dl (70-99)
--- NOTE | 2024-01-20 20:38 | PTCARENOTE ---
Assumed care of pt at 1900. Pt is oriented to self and place, was able to tell me it was summer but unable to state month/year or who the president was. Speech is garbled and difficult to understand most of the time. Pt has been pleasant and
generally cooperative, able to follow commands. No c/o pain. Random jerking movements at times, resembling asterixis. Physical assessment completed, see nursing shift assessment flowsheet for full details. SR 80s on monitor with BBB. SpO2 92% on RA
(spot checking). Bed alarm activated and med sitter set up in room.
[2024-01-20] MEDS: PROTONIX 40 MG PO (21:00)
[2024-01-20] MEDS: RISPERDAL M-TAB (ORALLY DISINTEGRATING) 0.25 MG PO (21:00)
[2024-01-20 21:23] LABS: Glucose - Point of Care 221 mg/dl (70-99)
[2024-01-20] MEDS: NOVOLOG FLEXPEN 3 UNITS SC (21:44)
[2024-01-21] VITALS (11 sets, daily range): BP systolic 94–149; BP diastolic 50–123; BMI 27.3
[2024-01-21 04:22] LABS: Hematocrit 24.1 % (39.0-52.0); Hemoglobin 7.7 g/dL (13.0-18.0); Mean Corpuscular Hgb 27.6 pg (27.0-31.0); Mean Corpuscular Volume 86.4 fL (80.0-94.0); Platelet Count 102 10^3/uL (130-400); Red Blood Cell Count 2.79 10^6/uL (4.70-6.10); White Blood Cell Count 5.1 10^3/uL (4.8-10.8)
[2024-01-21 04:27] LABS: INR 1.69; PT 19.7 Sec (11.4-14.6)
[2024-01-21 04:28] LABS: APTT 43.4 Sec (23.4-35.0)
[2024-01-21 04:41] LABS: ALT (SGPT) 26 U/L (0-50); AST (SGOT) 77 U/L (17-59); Albumin 2.2 g/dl (3.5-5.0); Alkaline Phosphatase 206 U/L (38-126); Blood Urea Nitrogen 19 mg/dl (9-20); Calcium 8.1 mg/dl (8.4-10.2); Carbon Dioxide 28 mmol/L (22-30); Chloride 106 mmol/L (98-107); Estimated Creatinine Clearance 73 ml/min; Glucose 120 mg/dl (70-99); Potassium 4.1 mmol/L (3.5-5.1); Sodium 136 mmol/L (135-145); Total Bilirubin 2.1 mg/dl (0.2-1.3); Total Protein 5.6 g/dl (6.3-8.2); eGFR > 60.00
[2024-01-21] MEDS: DUPHALAC/CHRONULAC 20 GRAMS PO ×2 (07:52→19:37)
[2024-01-21] MEDS: LASIX 80 MG PO (07:52)
[2024-01-21] MEDS: FLOMAX 0.4 MG PO (07:52)
[2024-01-21] MEDS: LOW STRENGTH ASPIRIN 81 MG PO (07:54)
[2024-01-21] MEDS: FARXIGA 10 MG PO (07:54)
[2024-01-21] MEDS: MAGNESIUM OXIDE 250 MG PO (07:54)
[2024-01-21] MEDS: PROTONIX 40 MG PO ×2 (07:54→19:36)
[2024-01-21] MEDS: KCL 20 MEQ PO ×2 (07:54→19:36)
[2024-01-21] MEDS: CRESTOR 20 MG PO (07:54)
[2024-01-21] MEDS: RISPERDAL M-TAB (ORALLY DISINTEGRATING) 0.25 MG PO ×4 (07:54→21:51)
[2024-01-21] MEDS: FEOSOL 325 MG PO (07:55)
[2024-01-21] MEDS: XIFAXAN 550 MG PO ×2 (07:55→19:36)
[2024-01-21] MEDS: NOVOLOG FLEXPEN-LOW RESISTANCE SC (08:03)
[2024-01-21 08:10] LABS: Glucose - Point of Care 136 mg/dl (70-99)
--- NOTE | 2024-01-21 10:04 | PTCARENOTE ---
Rec'd pt this AM. remains confused but oriented. Very restless, tremulous, unsteady gait. Did not sleep overnight. epidoses of incontinence. OOB to chair for one hour before attempting to get up, sliding to bottom. Bed sitter alerted RN. at
bedside. Pt unable to feed self due to hallucinations, uncoordinated. Vital signs stable. Meds given in applesauce successfully.
--- NOTE | 2024-01-21 11:02 | PTCARENOTE ---
Pt remain very confused, hallucinating. Inc of large amounts of stool.
--- NOTE | 2024-01-21 11:39 | W.PN.HOSP.TC ---
Today's Communication/Plan
-
IR consult for para.
Copper and Ceruloplasmin ordered.
Assessment / Plan
Assessment / Plan
NAD, resting comfortably in bed, able to follow commands, without focal defecits, hallucinating
Scleral anicteric, top carrier lateral border some bruising
Moist mucous membranes
JVD
CTA bilateral
Normal S1-S2 no murmurs
Soft nontender distended abdomen fluid wave bowel sounds active
No peripheral pitting edema
Moves extremities spontaneously
AAOx2, 5/5 motor strenght in UE and LE, good brilliandeer looper strenght
TME which could be multifactorial in the setting of hepatic encephalopathy or possibly undiagnosed underlying dementia with delirium producing the hallucinations versus a paraneoplastic syndrome in the setting of known RCC
Hepatic encephalopathy. Continue lactulose for goal bowel movements 2-3 daily. Continue rifaximin. Stressed importance of both agents to daughter and Mr. Ann.
TME - still on going intermittent, check eeg, consult neuro
- WIll consult Psych for completeness.
- -Plans to start low-dose antipsychotic
-Neurology reconsulted
- -I have performed LP on 01/19/2024. Results reviewed. Not consistent with meningitis. Glucose is slightly high however was previously hyperglycemic during the day likely as a result. Neurology continues to follow
- -MRI ordered however has severe claustrophobia do not want to give sedative as this would likely worsen his mental status
-GI and myself both agree that he is medically optimized from hepatic encephalopathy with lactulose rifaximin meeting goal bowel movements
Decompensated cirrhosis presenting with hepatic encephalopathy and ascites. Continue lactulose rifaximin IR consult for paracentesis. Obtain fluid studies cytology culture.
If requires greater than more than 4.5 L removed would provide 1 albumin back for every liter removed. Please see GI notes for recommendation.
Continue Aldactone and Lasix. Will discuss with GI increasing Aldactone dose
He will need to follow up with Hepatology as an outpatient
Pleural effusion noted on abdominal ultrasound. Will obtain chest x-ray to formally evaluate. Expect related to ascites and would improve with drainage of ascitic fluid via paracentesis. Also on Lasix. We will repeat/obtain chest x-ray in the
a.m. to further evaluate. If still present then can consult IR for potential thoracentesis however should be noted he is asymptomatic from this and not requiring supplemental oxygen
-Cxr from this AM - large pleural effusion still present
- - IRAD consult for thora
- - - COncern for PTX noted on CXR, IRAD cherellealyxevs trapped lung, (not symptomatic nor reuriing o2)
Pancytopenia secondary to underlying cirrhosis. Monitor for now. Outpatient hematology follow-up
Chronic hyponatremia due to underlying cirrhosis. Fluid restrict.
Hypokalemia improved this a.m.
Diabetes type 2 with hyperglycemia. On DC should stop Thiazolidediones. Start SGLT2i now. Conitnue SSI
HLD continue statin
LP does not show any acute pathology, unable to obtain MRI of the same abdomen likely due to CVA as exam is nonfocal, CT brain without evidence of bleed that was previously done earlier in admission, EEG does complete her earlier in admission
without evidence of seizure activity. Therefore I am suspecting that hepatic encephalopathy unmask underlying undiagnosed dementia with delirium. And therefore at this point in time I would begin discharge planning if LP does not show any acute
pathology as it would be most consistent with said diagnosis of dementia with delirium.
I do believe he would benefit from SNF and eventually memory unit.
Had a long discussion with Ms. Ann this AM. Her niece is a PA-C/SILK PRINTER. Has asked for a Copper level and Ceruloplasmin. I notified her that this would be a work up for Diallo's Disease. Patients with this disease are diagnosised much earlier and he
does nto have any of those findings. She still wanted to get them to put it to a rest so no stone was left overturned.
Did discuss consideration of hospice if unable to get him off of MedSitter because of his mental status. THey are not ready at this time. Ms. Ann did make him DNR/DNI though.
Anticipated Discharge: > 48 hours
Subjective/Interval History
-
Date of Service: January 21, 2024
Objective Data
-
Labs:
Laboratory Results
01/21/24
03:59
WBC 5.1
Hgb 7.7 L
Hct 24.1 L
Plt Count 102 L D
PT 19.7 H
INR 1.69
APTT 43.4 H
Sodium 136
Potassium 4.1
Chloride 106
Carbon Dioxide 28
BUN 19
Creatinine 0.8
Glucose 120 H
Calcium 8.1 L
Total Bilirubin 2.1 H
AST 77 H
ALT 26
Alkaline Phosphatase 206 H
Vital Signs:
Vital Signs
Temp Pulse Resp BP Pulse Ox
98.6 F 83 20 100/74 92
01/21/24 07:24 01/21/24 10:01 01/21/24 08:00 01/21/24 08:00 01/20/24 20:18
I&O
01/20/24 01/21/24 01/22/24
06:59 06:59 06:59
Intake Total 360 / 360 1060 / 1060 240 / 240
Output Total 1300 / 1300 825 / 825 200 / 200
Balance -940 / -940 235 / 235 40 / 40
[2024-01-21 12:36] LABS: Glucose - Point of Care 178 mg/dl (70-99)
[2024-01-21] MEDS: NOVOLOG FLEXPEN-LOW RESISTANCE 1 UNITS SC ×2 (13:06→16:53)
[2024-01-21] MEDS: ALDACTONE 50 MG PO (13:06)
--- NOTE | 2024-01-21 15:35 | PTCARENOTE ---
Pt remains restless, confused througout shift. Some improvement after PRN Risperdal dose. Speech is clearer and movments have slowed slightly. vital signs stable.
[2024-01-21 16:37] LABS: Glucose - Point of Care 175 mg/dl (70-99)
--- NOTE | 2024-01-21 16:53 | W.PN.UPDATE ---
Update Note
Progress Note Update
Pt seen & evaluated at bedside, chart reviewed.Remains confused and disoriented, responses to questions are nonsensical - is laying calmly in bed today however and not constantly moving around like yesterday. Had 1 prn dose of risperidone 0.25mg
earlier today which reportedly helped calm him.
Given some improvement thus far and need to manage symptoms on lowest dose so as to mitigate associated risks, continue risperidone 0.25mg BID + BID PRN acute agitation and allow more time for efficacy. May need increase if does continue to need
prns.
[2024-01-21 21:17] LABS: Glucose - Point of Care 171 mg/dl (70-99)
[2024-01-22] VITALS (22 sets, daily range): BP systolic 46–126; BP diastolic 15–112; PULSE 96; BMI 27.2
--- NOTE | 2024-01-22 04:00 | PTCARENOTE ---
Assume care from AM RN. AAOx1, forgetful, anxious, restless, tremors and uncooperative. Constantly trying to get up. gen weakness. Medsitter monitor at bedside. Garble speech, hallucinating at times. NSR to ST in the monitor. Lung sounds are
diminished, SaOe 94-96% RA Occasional dry cough. high risk for falls and aspiration. Pt is incontinent of bowel and bladder at times. Call doshi within reach.
[2024-01-22 05:34] LABS: Hematocrit 27.1 % (39.0-52.0); Hemoglobin 8.7 g/dL (13.0-18.0); Mean Corp Hgb Conc. 32.1 g/dL (33.0-37.0); Mean Corpuscular Hgb 29.1 pg (27.0-31.0); Mean Corpuscular Volume 90.6 fL (80.0-94.0); Mean Platelet Volume 10.4 fL (7.4-10.4); Platelet Count 101 10^3/uL (130-400); Red Blood Cell Count 2.99 10^6/uL (4.70-6.10); Red Cell Dist. Width 17.1 % (11.5-14.5); White Blood Cell Count 4.6 10^3/uL (4.8-10.8)
[2024-01-22 05:55] LABS: Blood Urea Nitrogen 18 mg/dl (9-20); Calcium 8.5 mg/dl (8.4-10.2); Carbon Dioxide 27 mmol/L (22-30); Chloride 108 mmol/L (98-107); Estimated Creatinine Clearance 73 ml/min; Glucose 134 mg/dl (70-99); Potassium 4.2 mmol/L (3.5-5.1); Sodium 139 mmol/L (135-145); eGFR > 60.00
--- NOTE | 2024-01-22 06:08 | W.PN.HOSP.TC ---
Today's Communication/Plan
-
Gentle IV hydration
Albumin bolus
risperidone scheduled and prn
Likely Delirium, minimize extraneous stimuli as possible
Vit B6 supplementation
Cont lactulose goal 2-3 BM's a day
cont Xifaxan
Assessment / Plan
Assessment / Plan
Physical Exam
General: confused mild agitation but re-directable to an extent
HEENT: Scleral anicteric Horizontal Nystagmus noted on lateral gaze EOMI Moist mucous membranes
Neck: JVD
Resp: CTA Bilateral
Cardio: Normal S1-S2 no murmurs
GI: Soft nontender distended bowel sounds present
Ext: No peripheral pitting edema
Neuro: Moves extremities spontaneously AAOx2
Psych: confused though follows simple commands to an extent
73M Cirrhosis HTN DM TAVR restless leg syndrome Obesity HLD p/w AMS Toxic Metabolic Encephalopathy Delirium Hallucinations unclear etiology.
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
-EEG appreciated no sz activity despite periodic shaking jerking movements likely Delirium
-Psych consult appreciated cont risperidone 0.25 mg BID + BIDPRN
-Neurology consult appreciated
-LP 01/19/2024. Results reviewed. Not consistent with meningitis. Meningitis panel neg
-MRI contraindicated d/t severe claustrophobia, sedatives likely will worsen mental status
-GI eval appreciated cont lactulose xifaxan
-Cont Aldactone 50 mg daily Lasix 80 mg daily (Lasix briefly held d/t hypotension, wt at all time low 76.3kg, poor oral intake with confusion delirium, gentle IV hydration started, once albumin bolus 01/22/24)
-Paracentesis attempted 01/21 but small volume ascites insufficient for drainage.
Pleural effusion noted on abdominal ultrasound
-IR eval appreciated Left thoracentesis 01/16 750 cc pleural fluid transudate (likely 2/2 cirrhosis) fluid cx neg
-post-thoracentesis CXR noted stable Lt apical pneumothorax and stable small loculated Lt pleural effusion
Pancytopenia secondary to underlying cirrhosis
-appears stable at this time
-Outpatient hematology follow-up recommended
Chronic Hyponatremia due to underlying cirrhosis. Fluid restrict.
Hypokalemia
-monitor and replete as necessary
-resolved at this time
Hx Diabetes type 2 with hyperglycemia.
-Home Pioglitazone discontinued d/t contraindication cirrhosis
-Farxiga started this hospitalization, placed on hold d/t poor oral intake 2/2 confusion delirium as above
-Continue SSI
-notably recent A1c wnl 5.4 01/15/24, past A1c noted here consistently Prediabetic <6.5
hx HLD
check lipid panel
home statin put on hold, possibly contributing to confusion
Vit B6 deficiency
Supplementation started
Copper Ceruloplasmin lvls pending
DNR/DNI
Discussed with patient (confused does not appear to have capacity at this time) and patient's Deepa
I spent a total of 50 minutes with the patient or on the floor. More than 50% of this time involved counseling and coordination of care.
Anticipated Discharge: > 48 hours
Subjective/Interval History
-
Date of Service: January 22, 2024
Confused agitated though re-directable to an extent. AOx2 disoriented to time. Intermittent fluent speech to mumbling. pt's Deepa present during evaluation noted patient appeared worse from yesterday more confused.
Objective Data
-
Labs:
Laboratory Results
01/22/24
05:16
WBC 4.6 L
Hgb 8.7 L
Hct 27.1 L
Plt Count 101 L
Sodium 139
Potassium 4.2
Chloride 108 H
Carbon Dioxide 27
BUN 18
Creatinine 0.8
Glucose 134 H
Calcium 8.5
Vital Signs:
Vital Signs
Temp Pulse Resp BP Pulse Ox
97.7 F 118 34 91/51 96
01/22/24 03:20 01/22/24 04:02 01/22/24 04:02 01/22/24 04:02 01/21/24 22:00
I&O
01/20/24 01/21/24 01/22/24
06:59 06:59 06:59
Intake Total 360 / 360 1060 / 1060 480 / 480
Output Total 1300 / 1300 825 / 825 450 / 450
Balance -940 / -940 235 / 235 30 / 30
--- NOTE | 2024-01-22 07:39 | PTCARENOTE ---
PT aaox2 confused , impulsive and anxious , ra lungs diminished . Called to IR going on stretcher.
[2024-01-22 07:44] LABS: Glucose - Point of Care 142 mg/dl (70-99)
[2024-01-22] MEDS: NOVOLOG FLEXPEN-LOW RESISTANCE SC (08:01)
[2024-01-22] MEDS: LOW STRENGTH ASPIRIN 81 MG PO (08:16)
[2024-01-22] MEDS: DUPHALAC/CHRONULAC 20 GRAMS PO (08:16)
[2024-01-22] MEDS: MAGNESIUM OXIDE 250 MG PO (08:16)
[2024-01-22] MEDS: PROTONIX 40 MG PO ×2 (08:16→19:38)
[2024-01-22] MEDS: CRESTOR 20 MG PO (08:16)
[2024-01-22] MEDS: FLOMAX 0.4 MG PO (08:16)
[2024-01-22] MEDS: FARXIGA 10 MG PO (08:16)
[2024-01-22] MEDS: KCL 20 MEQ PO ×2 (08:17→19:38)
[2024-01-22] MEDS: XIFAXAN 550 MG PO ×2 (08:17→19:38)
[2024-01-22] MEDS: RISPERDAL M-TAB (ORALLY DISINTEGRATING) 0.25 MG PO ×3 (08:18→19:38)
[2024-01-22] MEDS: FEOSOL 325 MG PO (08:19)
[2024-01-22] MEDS: FOLTX 1 TABLET PO (11:24)
[2024-01-22] MEDS: LASIX PO (11:25)
--- NOTE | 2024-01-22 11:30 | PTCARENOTE ---
Pt Lasix held due to low BP DR Batres aware
--- NOTE | 2024-01-22 11:49 | PTCARENOTE ---
Pt given prn risperidone, pt more restless. Dr Batres TT
[2024-01-22] MEDS: ALDACTONE 50 MG PO (12:22)
[2024-01-22 12:40] LABS: Glucose - Point of Care 157 mg/dl (70-99)
[2024-01-22] MEDS: NOVOLOG FLEXPEN-LOW RESISTANCE 1 UNITS SC ×2 (12:51→16:58)
[2024-01-22 12:55] LABS: Magnesium 2.3 mg/dl (1.6-2.3); Phosphorus 3.1 mg/dl (2.5-4.5)
--- NOTE | 2024-01-22 16:39 | CM ---
Patient with Hx BELTRAN Cirrhosis with Dx TME which could be multifactorial. Room air. Receiving risperdal. Seen by Psych. PT & OT recommend skilled rehab. Per nurse assessment; confused, forgetful. Medsitter.
Met with patient's daughter Ivonne (cell [phone]), son in law and 2 grand-children; daughter said grand-children were tearful seeing the patient confused for the first time. Daughter says her mother had a meeting at [facility] on 01/18
about SNF for rehab.
Spoke with [facility]; provided clinical update. They are able to accept him when medically ready.
Plan [facility] SNF when medically ready
[2024-01-22 16:41] LABS: Glucose - Point of Care 199 mg/dl (70-99)
[2024-01-22] MEDS: DUPHALAC/CHRONULAC PO (19:38)
[2024-01-22] MEDS: NSS 1000 IV (19:39)
--- NOTE | 2024-01-22 20:11 | PTCARENOTE ---
Received pt from dayshift RN. Pt is AAOx2 (time), confused/forgetful, anxious, garbled speech. NSR w/ BBB. On RA, lungs diminished/coarse. Incont x2, attends in place. NS infusing @ 60 ml/hr. Medsitter and bed alarm in place.
[2024-01-22] MEDS: FLEXBUMIN 100 IV (20:37)
[2024-01-22 22:01] LABS: Glucose - Point of Care 173 mg/dl (70-99)
[2024-01-23] VITALS (15 sets, daily range): BP systolic 84–123; BP diastolic 32–64; BMI 26.8
[2024-01-23 06:07] LABS: Hematocrit 27.9 % (39.0-52.0); Hemoglobin 8.9 g/dL (13.0-18.0); Mean Corp Hgb Conc. 31.9 g/dL (33.0-37.0); Mean Corpuscular Hgb 28.3 pg (27.0-31.0); Mean Corpuscular Volume 88.6 fL (80.0-94.0); Mean Platelet Volume 11.5 fL (7.4-10.4); Platelet Count 113 10^3/uL (130-400); Red Blood Cell Count 3.15 10^6/uL (4.70-6.10); Red Cell Dist. Width 17.2 % (11.5-14.5)
[2024-01-23 06:16] LABS: Blood Urea Nitrogen 19 mg/dl (9-20); Calcium 8.6 mg/dl (8.4-10.2); Carbon Dioxide 27 mmol/L (22-30); Chloride 113 mmol/L (98-107); Creatine Phosphokinase 45 U/L (55-170); Estimated Creatinine Clearance 73 ml/min; Glucose 134 mg/dl (70-99); HDL Cholesterol 19 mg/dl; LDL Cholesterol, Calculated 65 mg/dl; Magnesium 2.6 mg/dl (1.6-2.3); Phosphorus 3.4 mg/dl (2.5-4.5); Potassium 5.1 mmol/L (3.5-5.1); Sodium 141 mmol/L (135-145); Total Cholesterol 96 mg/dl (50-199); Triglyceride 60 mg/dl (10-149); Very Low Density Lipoprotein 12 mg/dl (0-30); eGFR > 60.00
--- NOTE | 2024-01-23 07:12 | W.PN.HOSP.TC ---
Today's Communication/Plan
-
start midodrine
Lasix and aldactone on hold today for soft pressures and high normal K
cont risperdal
PT/OT
Assessment / Plan
Assessment / Plan
Physical Exam
General: No acute distress appears comfortable at this time
HEENT: Scleral anicteric EOMI Moist mucous membranes
Neck: JVD
Resp: CTA Bilateral
Cardio: Normal S1-S2 no murmurs
GI: Soft nontender distended bowel sounds present
Ext: No peripheral pitting edema
Neuro: Moves extremities spontaneously AAOx3
Psych: Calm
73M Cirrhosis HTN DM TAVR restless leg syndrome Obesity HLD p/w AMS Toxic Metabolic Encephalopathy Delirium Hallucinations unclear etiology.
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
-EEG appreciated no sz activity despite periodic shaking jerking movements likely Delirium
-Psych consult appreciated cont risperidone 0.25 mg BID + BIDPRN
-Neurology consult appreciated
-LP 01/19/2024. Results reviewed. Not consistent with meningitis. Meningitis panel neg
-MRI contraindicated d/t severe claustrophobia, sedatives likely will worsen mental status
-GI eval appreciated cont lactulose xifaxan
-Cont Aldactone 50 mg daily Lasix 80 mg daily (Lasix Aldactone briefly held d/t hypotension, wt at all time low, poor oral intake with confusion delirium, gentle IV hydration, once albumin bolus 01/22/24 midodrine started)
-Paracentesis attempted 01/21 but small volume ascites insufficient for drainage.
Pleural effusion noted on abdominal ultrasound
-IR eval appreciated Left thoracentesis 01/16 750 cc pleural fluid transudate (likely 2/2 cirrhosis) fluid cx neg
-post-thoracentesis CXR noted stable Lt apical pneumothorax and stable small loculated Lt pleural effusion
Pancytopenia secondary to underlying cirrhosis
-appears stable at this time
-Outpatient hematology follow-up recommended
Chronic Hyponatremia due to underlying cirrhosis. Fluid restrict.
Hypokalemia
-monitor and replete as necessary
-resolved at this time
Hx Diabetes type 2 with hyperglycemia.
-Home Pioglitazone discontinued d/t contraindication cirrhosis
-Farxiga started this hospitalization, placed on hold d/t poor oral intake 2/2 confusion delirium as above
-Continue SSI
-notably recent A1c wnl 5.4 01/15/24, past A1c noted here consistently Prediabetic <6.5
hx HLD
lipid panel appreciated wnl
home statin put on hold, possibly contributing to confusion
Vit B6 deficiency
Supplementation started, cont
Copper Ceruloplasmin lvls pending
DNR/DNI
Discussed with patient and patient's Deepa
I spent a total of 50 minutes with the patient or on the floor. More than 50% of this time involved counseling and coordination of care.
Anticipated Discharge: 24 - 48 hours
Subjective/Interval History
-
Date of Service: January 23, 2024
Patient significantly improved. AOx3 ate breakfast without issues. Confusion appears resolved, mental status baseline as per patient's at bedside during evaluation.
Objective Data
-
Labs:
Laboratory Results
01/23/24
05:26
WBC 5.0
Hgb 8.9 L
Hct 27.9 L
Plt Count 113 L
Sodium 141
Potassium 5.1
Chloride 113 H
Carbon Dioxide 27
BUN 19
Creatinine 0.8
Glucose 134 H
Calcium 8.6
Vital Signs:
Vital Signs
Temp Pulse Resp BP Pulse Ox
97.9 F 79 20 101/51 95
01/23/24 03:45 01/23/24 06:00 01/23/24 06:00 01/23/24 06:00 01/22/24 20:56
I&O
01/22/24 01/23/24 01/24/24
06:59 06:59 06:59
Intake Total 600 / 600 1110 / 1110
Output Total 450 / 450 750 / 750
Balance 150 / 150 360 / 360
[2024-01-23 09:08] LABS: Glucose - Point of Care 151 mg/dl (70-99)
[2024-01-23] MEDS: FLOMAX 0.4 MG PO (09:39)
[2024-01-23] MEDS: RISPERDAL M-TAB (ORALLY DISINTEGRATING) 0.25 MG PO ×2 (09:39→19:37)
[2024-01-23] MEDS: XIFAXAN 550 MG PO ×2 (09:39→19:37)
[2024-01-23] MEDS: MAGNESIUM OXIDE 250 MG PO (09:40)
[2024-01-23] MEDS: FEOSOL 325 MG PO (09:40)
[2024-01-23] MEDS: LOW STRENGTH ASPIRIN 81 MG PO (09:40)
[2024-01-23] MEDS: KCL 20 MEQ PO ×2 (09:40→19:37)
[2024-01-23] MEDS: DUPHALAC/CHRONULAC 20 GRAMS PO ×2 (09:40→19:38)
[2024-01-23] MEDS: VITAMIN B-6 50 MG PO (09:40)
[2024-01-23] MEDS: PROTONIX 40 MG PO ×2 (09:40→19:37)
[2024-01-23] MEDS: NOVOLOG FLEXPEN-LOW RESISTANCE 1 UNITS SC ×2 (09:54→17:10)
--- NOTE | 2024-01-23 10:18 | W.PN.UPDATE ---
Update Note
Progress Note Update
Patient seen at bedside, chart reviewed, discussed with staff. Mr. Ann was asleep when I entered the room but easily awoke to his name. He is quite pleasant and cooperative, remains confused and some garbled speech was noted. No acute events
overnight report. He tells me he is sleeping well. No complaints to offer.
Impression/Recommendations: Delirium/TME secondary to underlying medical illness - continue with Risperdal for now, received one PRN yesterday, would decrease and discontinue scheduled dosing as soon as behavior warrants as patient continues to
improve
[2024-01-23] MEDS: LASIX PO (11:31)
[2024-01-23] MEDS: ALDACTONE PO (11:32)
--- NOTE | 2024-01-23 11:50 | W.PN.PAL2 ---
Today's Communication
-
delirium improving slowly, family hoping for SNF
Assessment / Plan
-
Assessment/Plan:
Based on the current condition, prognosis, comorbidities, patient's goals & wishes as discussed above, the palliative care team has made the following recommendations:
Encounter for palliative care:
- per chart review, family not interested in hospice at this time and hoping for recovery of mental status so patient can go to SNF
- seems delirium is improving with addition of risperidone
- goals restorative at this time
Delirium
- improving
- psych following - risperidone scheduled and PRN
- delirium precautions - OOB for meals, avoid anti-cholingergics, benzos
The above recommendations were discussed with the patient/family and medical team.
Reason for Admission
Illness Course/HPI
Seen at bedside. Calm and cooperative - confused conversation. Seems delirium is improving slowly. Denies complaints.
Pain & Symptom Assessment
[place] Symptom Scale 0=none, 10=worst
Pain: 0
Nausea: 0
Shortness of Breath: 0
Objective Data
-
Objective Data:
Vital Signs
Temp Pulse Resp BP Pulse Ox
97.9 F 76 20 92/52 95
01/23/24 07:16 01/23/24 11:15 01/23/24 11:15 01/23/24 11:32 01/22/24 20:56
Laboratory Results
01/23/24 05:26
01/23/24 05:26
PT 19.7 Sec (11.4-14.6) H 01/21/24 03:59
INR 1.69 01/21/24 03:59
APTT 43.4 Sec (23.4-35.0) H 01/21/24 03:59
Hemoglobin A1c 5.4 % (4.0-5.6) 01/15/24 04:57
Ammonia < 9 umol/L (9-30) L 01/16/24 09:43
Total Protein 5.6 g/dl (6.3-8.2) L 01/21/24 03:59
Albumin 2.2 g/dl (3.5-5.0) L 01/21/24 03:59
Urine Color Yellow 01/14/24 14:51
Urine Clarity Clear (Clear) 01/14/24 14:51
Urine pH 8.0 (5.0-9.0) 01/14/24 14:51
Ur Specific [place] 1.015 (<1.030) 01/14/24 14:51
Urine Ketones Negative (Negative) 01/14/24 14:51
Urine Bilirubin Negative (Negative) 01/14/24 14:51
Palliative Performance Scale
Palliative Performance Scale:
PPS Level Ambulation Activity & Evidence of Disease Self Care Intake Conscious Level
100% Full Normal Activity & Work; Full Intake Full
No Evidence of Disease
90% Full Normal Activity & Work; Full Normal Full
Some Evidence of Disease
80% Full Normal Activity with Effort Full Normal or Full
Some Evidence of Disease Reduced
70% Reduced Unable Normal Job/Work Full Normal or Full
Significant Disease Reduced
60% Reduced Unable Hobby/Housework Occasional Normal or Full or Confusion
Significant Disease Assistance Reduced
50% Mainly Sit/Lie Unable to do Any Work Considerable Normal or Full or Confusion
Extensive Disease Assistance Req'd Reduced
40% Mainly in Bed Unable to do Most Activity Mainly Assistance Normal or Full or Drowsy;
Extensive Disease Reduced +/- Confusion
30% Totally Bed Unable to do Any Activity Total Care Normal or Full or Drowsy;
Bound Extensive Disease Reduced +/- Confusion
20% Totally Bed Bound Unable to do Any Activity Total Care Minimal to Full or Drowsy;
Extensive Disease Sips +/- Confusion
10% Totally Bed Bound Unable to do Any Activity Total Care Mouth Care Drowsy or Coma;
Extensive Disease Only +/- Confusion
0%
PPS Score Level:
Palliative Performance Scale:
PPS Level Ambulation Activity & Evidence of Disease Self Care Intake Conscious Level
100% Full Normal Activity & Work; Full Intake Full
No Evidence of Disease
90% Full Normal Activity & Work; Full Normal Full
Some Evidence of Disease
80% Full Normal Activity with Effort Full Normal or Full
Some Evidence of Disease Reduced
70% Reduced Unable Normal Job/Work Full Normal or Full
Significant Disease Reduced
60% Reduced Unable Hobby/Housework Occasional Normal or Full or Confusion
Significant Disease Assistance Reduced
50% Mainly Sit/Lie Unable to do Any Work Considerable Normal or Full or Confusion
Extensive Disease Assistance Req'd Reduced
40% Mainly in Bed Unable to do Most Activity Mainly Assistance Normal or Full or Drowsy;
Extensive Disease Reduced +/- Confusion
30% Totally Bed Unable to do Any Activity Total Care Normal or Full or Drowsy;
Bound Extensive Disease Reduced +/- Confusion
20% Totally Bed Bound Unable to do Any Activity Total Care Minimal to Full or Drowsy;
Extensive Disease Sips +/- Confusion
10% Totally Bed Bound Unable to do Any Activity Total Care Mouth Care Drowsy or Coma;
Extensive Disease Only +/- Confusion
0%
PPS Score Level: 50
Physical Exam
-
General: No Apparent Distress and Comfortable
HEENT: Normocephalic
GI: Soft
Skin: Warm
Psych: Calm and Confused
Care Reviewed
Time
Start Date: 01/23/24
Start Time: 11:00
Stop Date: 01/23/24
Stop Time: 11:25
Time Spent:
25
[2024-01-23 12:23] LABS: Glucose - Point of Care 238 mg/dl (70-99)
[2024-01-23] MEDS: NOVOLOG FLEXPEN-LOW RESISTANCE 2 UNITS SC (12:49)
[2024-01-23] MEDS: ProAmatine 5 MG PO ×2 (13:35→17:06)
[2024-01-23 14:33] LABS: ALT (SGPT) 27 U/L (0-50); AST (SGOT) 72 U/L (17-59); Albumin 2.8 g/dl (3.5-5.0); Alkaline Phosphatase 209 U/L (38-126); Direct Bilirubin 1.1 mg/dl (0.0-0.4); Total Bilirubin 2.4 mg/dl (0.2-1.3); Total Protein 6.2 g/dl (6.3-8.2)
[2024-01-23 17:17] LABS: Glucose - Point of Care 178 mg/dl (70-99)
[2024-01-23 21:23] LABS: Ceruloplasmin 28 mg/dL (15-30)
[2024-01-23 22:06] LABS: Glucose - Point of Care 309 mg/dl (70-99)
[2024-01-23] MEDS: NOVOLOG FLEXPEN 5 UNITS SC (22:39)
[2024-01-24] VITALS (20 sets, daily range): BP systolic 88–117; BP diastolic 40–77; PULSE 74–80; BMI 26.9
[2024-01-24 04:52] LABS: Hemoglobin 8.1 g/dL (13.0-18.0); Mean Corp Hgb Conc. 32.4 g/dL (33.0-37.0); Mean Corpuscular Volume 89.6 fL (80.0-94.0); Mean Platelet Volume 11.7 fL (7.4-10.4); Platelet Count 118 10^3/uL (130-400); Red Blood Cell Count 2.79 10^6/uL (4.70-6.10); Red Cell Dist. Width 16.9 % (11.5-14.5); White Blood Cell Count 6.2 10^3/uL (4.8-10.8)
[2024-01-24 05:18] LABS: ALT (SGPT) 24 U/L (0-50); AST (SGOT) 61 U/L (17-59); Albumin 2.3 g/dl (3.5-5.0); Alkaline Phosphatase 188 U/L (38-126); Blood Urea Nitrogen 20 mg/dl (9-20); Calcium 8.2 mg/dl (8.4-10.2); Carbon Dioxide 23 mmol/L (22-30); Chloride 111 mmol/L (98-107); Direct Bilirubin 0.8 mg/dl (0.0-0.4); Estimated Creatinine Clearance 73 ml/min; Glucose 105 mg/dl (70-99); Magnesium 2.4 mg/dl (1.6-2.3); Phosphorus 2.5 mg/dl (2.5-4.5); Sodium 137 mmol/L (135-145); Total Bilirubin 2.3 mg/dl (0.2-1.3); Total Protein 5.6 g/dl (6.3-8.2); eGFR > 60.00
--- NOTE | 2024-01-24 07:33 | W.PN.HOSP.TC ---
Today's Communication/Plan
-
cont risperdal
stable for downgrade to med/surg
glycemic control
PT/OT
Assessment / Plan
Assessment / Plan
Physical Exam
General: No acute distress appears comfortable at this time
HEENT: Scleral anicteric EOMI Moist mucous membranes
Neck: JVD
Resp: CTA Bilateral
Cardio: Normal S1-S2 no murmurs
GI: Soft nontender distended bowel sounds present
Ext: No peripheral pitting edema
Neuro: Moves extremities spontaneously AAOx3
Psych: Calm
73M Cirrhosis HTN DM TAVR restless leg syndrome Obesity HLD p/w AMS Toxic Metabolic Encephalopathy Delirium Hallucinations unclear etiology.
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
-EEG appreciated no sz activity despite periodic shaking jerking movements likely Delirium
-Psych consult appreciated cont risperidone 0.25 mg BID + BIDPRN
-Neurology consult appreciated
-LP 01/19/2024. Results reviewed. Not consistent with meningitis. Meningitis panel neg
-MRI contraindicated d/t severe claustrophobia, sedatives likely will worsen mental status
-GI eval appreciated cont lactulose xifaxan
-Cont Aldactone 50 mg daily Lasix 80 mg daily (Lasix Aldactone briefly held d/t hypotension, wt at all time low, poor oral intake with confusion delirium, gentle IV hydration, albumin bolus given 01/22/24 01/24/24, midodrine started continue)
-Paracentesis attempted 01/21 but small volume ascites insufficient for drainage.
Pleural effusion noted on abdominal ultrasound
-IR eval appreciated Left thoracentesis 01/16 750 cc pleural fluid transudate (likely 2/2 cirrhosis) fluid cx neg
-post-thoracentesis CXR noted stable Lt apical pneumothorax and stable small loculated Lt pleural effusion
-Report CXR notes enlargement effusion along with atelectasis, stable respiratory status at this time room air, incentive spirometer ordered
Pancytopenia secondary to underlying cirrhosis
-appears stable at this time
-Outpatient hematology follow-up recommended
Chronic Hyponatremia due to underlying cirrhosis. Fluid restrict.
Hypokalemia
-monitor and replete as necessary
-resolved at this time
Hx Diabetes type 2 with hyperglycemia.
-Home Pioglitazone discontinued d/t contraindication cirrhosis
-Farxiga started this hospitalization, placed on hold d/t poor oral intake 2/2 confusion delirium as above
-Continue SSI
-notably recent A1c wnl 5.4 01/15/24, past A1c noted here consistently Prediabetic <6.5
hx HLD
lipid panel appreciated wnl
home statin put on hold, possibly contributing to confusion
Vit B6 deficiency
Supplementation started, cont
Copper Ceruloplasmin lvls wnl
DNR/DNI
Stable for downgrade to Med/surg
Discussed with patient and patient's Deepa
I spent a total of 50 minutes with the patient or on the floor. More than 50% of this time involved counseling and coordination of care.
Anticipated Discharge: 24 - 48 hours
Subjective/Interval History
-
Date of Service: January 24, 2024
AOx3 appears significantly improved. Some intermittent hallucinations persist as noted by at bedside.
Objective Data
-
Labs:
Laboratory Results
01/24/24
03:45
WBC 6.2
Hgb 8.1 L
Hct 25.0 L
Plt Count 118 L
Sodium 137
Potassium 5.0
Chloride 111 H
Carbon Dioxide 23
BUN 20
Creatinine 0.8
Glucose 105 H
Calcium 8.2 L
Total Bilirubin 2.3 H
AST 61 H
ALT 24
Alkaline Phosphatase 188 H
Vital Signs:
Vital Signs
Temp Pulse Resp BP Pulse Ox
98.3 F 82 23 91/62 94
01/24/24 03:57 01/24/24 06:04 01/24/24 06:04 01/24/24 06:04 01/23/24 20:29
I&O
01/23/24 01/24/24 01/25/24
06:59 06:59 06:59
Intake Total 1110 / 1110 1490 / 1490
Output Total 750 / 750 1085 / 1085
Balance 360 / 360 405 / 405
[2024-01-24 09:06] LABS: Glucose - Point of Care 128 mg/dl (70-99)
[2024-01-24 09:12] LABS: Copper, Serum 132.1 ug/dL (70.0-140.0)
[2024-01-24] MEDS: DUPHALAC/CHRONULAC 20 GRAMS PO ×2 (09:25→21:01)
[2024-01-24] MEDS: KCL 20 MEQ PO ×2 (09:25→21:01)
[2024-01-24] MEDS: MAGNESIUM OXIDE 250 MG PO (09:26)
[2024-01-24] MEDS: PROTONIX 40 MG PO ×2 (09:26→21:01)
[2024-01-24] MEDS: ProAmatine 5 MG PO ×3 (09:26→17:47)
[2024-01-24] MEDS: FEOSOL 325 MG PO (09:26)
[2024-01-24] MEDS: VITAMIN B-6 50 MG PO (09:26)
[2024-01-24] MEDS: XIFAXAN 550 MG PO ×2 (09:26→21:01)
[2024-01-24] MEDS: FLOMAX 0.4 MG PO (09:26)
[2024-01-24] MEDS: LASIX 80 MG PO (09:26)
[2024-01-24] MEDS: LOW STRENGTH ASPIRIN 81 MG PO (09:26)
[2024-01-24] MEDS: RISPERDAL M-TAB (ORALLY DISINTEGRATING) 0.25 MG PO ×2 (09:27→21:01)
[2024-01-24] MEDS: NOVOLOG FLEXPEN-LOW RESISTANCE SC (09:30)
--- NOTE | 2024-01-24 10:00 | PTCARENOTE ---
Patient sent to Radiology for chest XR.
--- NOTE | 2024-01-24 11:49 | W.PN.UPDATE ---
Update Note
Progress Note Update
patient seen chart reviewed. at bedside. spoke with nursing. patient is much much better. the last time i saw him was this past monday and there has been considerable improvement since that time. he is no longer hallucinating. he said
occasionally he may see something 'out of the corner of my eye'. the only thing i noted was at times speech was a little slurred. he was fully oriented. he was able to tell me about his grandkids whose pictures were on his bedside table. he is
taking risperdal o.25 mg bid. if he continues to do well would reduce dose to once daily tomorrow. this could contribute to the slurring of his speech.
[2024-01-24] MEDS: ALDACTONE 50 MG PO (12:35)
[2024-01-24] MEDS: NOVOLOG FLEXPEN-LOW RESISTANCE 2 UNITS SC (12:36)
[2024-01-24 12:45] LABS: Glucose - Point of Care 229 mg/dl (70-99)
[2024-01-24] MEDS: FLEXBUMIN 100 IV (13:30)
--- NOTE | 2024-01-24 16:49 | CM ---
Patient with Hx BELTRAN Cirrhosis with Dx TME which could be multifactorial. Room air. Receiving Risperdal. Seen by Psych- mentation improving, plan wean Risperdal dose. PT & OT recommend skilled rehab.
Spoke with Heriberto Kyle; provided update that patient's mentation is improving on Risperdal, with MD planning to wean dose. They require Medsitter to be off 24 hrs prior to d/c and patient to have no agitated behaviors.
Messages with Dr Batres & nurse Irais; per MD patient still symptomatic to an extent. Hoping to wean Risperdal before d/c. Possibly ready for d/c - Monday. Medsitter would need to be stopped tomorrow morning if we are planning SNF Monday as
SNF requires patient off of that 24 hrs before d/c.
Plan follow up tomorrow if patient will be off Medsitter and ready for d/c Monday.
Plan [facility] when medically ready
[2024-01-24 17:37] LABS: Glucose - Point of Care 192 mg/dl (70-99)
[2024-01-24] MEDS: NOVOLOG FLEXPEN-LOW RESISTANCE 1 UNITS SC (17:45)
--- NOTE | 2024-01-24 21:25 | PTCARENOTE ---
New room assignment received. Pt updated on plan, able to state place and time but frequently forgetful but cooperative with cares. Report called to TINO Aquino on 3W. Pt belongings packed. Meds given, IV flushes w/o issues. Foam dressing intact to
arm skin tears. voided in urinal. denies any pain. VSS. Chart /belongings sent with pt. Transferred to room [facility]-1 via wheelchair with head of precision targeting. Med-sitter brought with pt.
--- NOTE | 2024-01-24 21:51 | PTCARENOTE ---
Patient arrived from IMU, alert to person and place. Denies any needs. Med sitter and bed alarm intact.
[2024-01-25 06:00] VITALS: BMI 28.2
--- NOTE | 2024-01-25 07:23 | W.PN.HOSP.TC ---
Today's Communication/Plan
-
cont risperdal
glycemic control
PT/OT
Incentive Spirometry
Assessment / Plan
Assessment / Plan
Physical Exam
General: No acute distress appears comfortable at this time
HEENT: Scleral anicteric EOMI Moist mucous membranes
Neck: JVD
Resp: CTA Bilateral
Cardio: Normal S1-S2 no murmurs
GI: Soft nontender distended bowel sounds present
Ext: No peripheral pitting edema
Neuro: Moves extremities spontaneously AAOx3
Psych: Calm
73M Cirrhosis HTN DM TAVR restless leg syndrome Obesity HLD p/w AMS Toxic Metabolic Encephalopathy Delirium Hallucinations unclear etiology.
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
-EEG appreciated no sz activity despite periodic shaking jerking movements likely Delirium
-Psych consult appreciated cont risperidone 0.25 mg BID + BIDPRN
-Neurology consult appreciated
-LP 01/19/2024. Results reviewed. Not consistent with meningitis. Meningitis panel neg
-MRI contraindicated d/t severe claustrophobia, sedatives likely will worsen mental status
-GI eval appreciated cont lactulose xifaxan
-Cont Aldactone 50 mg daily Lasix 80 mg daily (Lasix Aldactone briefly held d/t hypotension, wt at all time low, poor oral intake with confusion delirium, gentle IV hydration, albumin bolus given 01/22/24 01/24/24, midodrine started continue)
-Paracentesis attempted 01/21 but small volume ascites insufficient for drainage.
Pleural effusion noted on abdominal ultrasound
-IR eval appreciated Left thoracentesis 01/16 750 cc pleural fluid transudate (likely 2/2 cirrhosis) fluid cx neg
-post-thoracentesis CXR noted stable Lt apical pneumothorax and stable small loculated Lt pleural effusion
-Report CXR notes enlargement effusion along with atelectasis, stable respiratory status at this time room air, incentive spirometer ordered
Pancytopenia secondary to underlying cirrhosis
-appears stable at this time
-Outpatient hematology follow-up recommended
Chronic Hyponatremia due to underlying cirrhosis. Fluid restrict.
Hypokalemia
-monitor and replete as necessary
-resolved at this time
Hx Diabetes type 2 with hyperglycemia.
-Home Pioglitazone discontinued d/t contraindication cirrhosis
-Farxiga started this hospitalization, placed on hold d/t poor oral intake 2/2 confusion delirium as above
-Continue SSI
-notably recent A1c wnl 5.4 01/15/24, past A1c noted here consistently Prediabetic <6.5
hx HLD
lipid panel appreciated wnl
home statin put on hold, possibly contributing to confusion
Vit B6 deficiency
Supplementation started, cont
Copper Ceruloplasmin lvls wnl
DNR/DNI
Stable for downgrade to Med/surg
Discussed with patient and patient's Deepa
I spent a total of 50 minutes with the patient or on the floor. More than 50% of this time involved counseling and coordination of care.
Anticipated Discharge: 24 - 48 hours
Subjective/Interval History
-
Date of Service: January 25, 2024
Lethargic but arousable remains oriented x3. Some confusion hallucination noted as per patient and present during evaluation.
Objective Data
-
Labs:
Laboratory Results
01/25/24
06:00
WBC Pending
Hgb Pending
Hct Pending
Plt Count Pending
Sodium Pending
Potassium Pending
Chloride Pending
Carbon Dioxide Pending
BUN Pending
Creatinine Pending
Glucose Pending
Calcium Pending
Vital Signs:
Vital Signs
Temp Pulse Resp BP Pulse Ox
99.3 F 81 18 117/52 95
01/24/24 21:53 01/24/24 21:53 01/24/24 21:53 01/24/24 21:53 01/24/24 21:53
I&O
01/24/24 01/25/24 01/26/24
06:59 06:59 06:59
Intake Total 1490 / 1490 1300 / 1300
Output Total 1085 / 1085 875 / 875
Balance 405 / 405 425 / 425
[2024-01-25 07:43] VITALS: BP 101/46
[2024-01-25 08:14] LABS: Glucose - Point of Care 152 mg/dl (70-99)
[2024-01-25 08:35] LABS: Hematocrit 26.9 % (39.0-52.0); Hemoglobin 8.6 g/dL (13.0-18.0); Mean Corpuscular Hgb 28.5 pg (27.0-31.0); Mean Corpuscular Volume 89.1 fL (80.0-94.0); Mean Platelet Volume 12.8 fL (7.4-10.4); Platelet Count 119 10^3/uL (130-400); Red Blood Cell Count 3.02 10^6/uL (4.70-6.10); Red Cell Dist. Width 16.8 % (11.5-14.5); White Blood Cell Count 4.9 10^3/uL (4.8-10.8)
[2024-01-25] MEDS: RISPERDAL M-TAB (ORALLY DISINTEGRATING) 0.25 MG PO ×2 (08:38→20:49)
[2024-01-25] MEDS: DUPHALAC/CHRONULAC 20 GRAMS PO ×2 (08:38→20:49)
[2024-01-25] MEDS: VITAMIN B-6 50 MG PO (08:39)
[2024-01-25] MEDS: XIFAXAN 550 MG PO ×2 (08:39→20:49)
[2024-01-25] MEDS: LASIX PO (08:40)
[2024-01-25] MEDS: MAGNESIUM OXIDE 250 MG PO (08:40)
[2024-01-25] MEDS: LOW STRENGTH ASPIRIN 81 MG PO (08:40)
[2024-01-25] MEDS: FEOSOL 325 MG PO (08:41)
[2024-01-25] MEDS: ProAmatine 5 MG PO ×3 (08:41→17:40)
[2024-01-25] MEDS: PROTONIX 40 MG PO ×2 (08:41→20:49)
[2024-01-25] MEDS: FLOMAX 0.4 MG PO (08:41)
[2024-01-25] MEDS: KCL 20 MEQ PO (08:41)
[2024-01-25 09:00] LABS: Blood Urea Nitrogen 19 mg/dl (9-20); Calcium 8.4 mg/dl (8.4-10.2); Carbon Dioxide 24 mmol/L (22-30); Chloride 106 mmol/L (98-107); Estimated Creatinine Clearance 73 ml/min; Glucose 138 mg/dl (70-99); Phosphorus 2.9 mg/dl (2.5-4.5); Potassium 4.5 mmol/L (3.5-5.1); Sodium 134 mmol/L (135-145); eGFR > 60.00
[2024-01-25] MEDS: NOVOLOG FLEXPEN-LOW RESISTANCE 1 UNITS SC (09:14)
--- NOTE | 2024-01-25 11:30 | W.PN.UPDATE ---
Update Note
Progress Note Update
patient seen chart reviewed. discussed w nursing and dr mullins at bedside. mr rasmussen was hallucinating again yesterday said a short time after i left the bedside. today he seems restless but had a sense of humor . nursing asked him what
he wanted for dinner 'filet sharif and claudia.' he does continue w rather slurred speech. not clear why. said speech not normally 'this slurred'. would give it one more day. discussed w dr matamoros switching possibly to seroquel but that would be
more sedating and may need larger doses to control hallucinations (?)
[2024-01-25 11:41] LABS: Glucose - Point of Care 249 mg/dl (70-99)
[2024-01-25] MEDS: ALDACTONE 50 MG PO (12:12)
[2024-01-25] MEDS: NOVOLOG FLEXPEN-LOW RESISTANCE 2 UNITS SC (12:29)
[2024-01-25 15:39] VITALS: BP 97/51; PULSE 78
[2024-01-25 16:28] LABS: Glucose - Point of Care 138 mg/dl (70-99)
[2024-01-25] MEDS: NOVOLOG FLEXPEN-LOW RESISTANCE SC (16:41)
[2024-01-25 22:13] LABS: Glucose - Point of Care 214 mg/dl (70-99)
[2024-01-25 23:33] VITALS: BP 115/49
[2024-01-26 05:51] VITALS: BMI 28.3
--- NOTE | 2024-01-26 07:14 | W.PN.HOSP.TC ---
Today's Communication/Plan
-
taper risperidone as per psych
lidocaine patch
prn tramadol w/ morphine for severe breakhrough pain
PT/OT
Assessment / Plan
Assessment / Plan
Physical Exam
General: No acute distress appears comfortable at this time
HEENT: Scleral anicteric EOMI Moist mucous membranes
Neck: JVD
Resp: CTA Bilateral
Cardio: Normal S1-S2 no murmurs
GI: Soft nontender distended bowel sounds present
Ext: No peripheral pitting edema
Neuro: Moves extremities spontaneously AAOx3
Psych: Calm
73M Cirrhosis HTN DM TAVR restless leg syndrome Obesity HLD p/w AMS Toxic Metabolic Encephalopathy Delirium Hallucinations unclear etiology.
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
-EEG appreciated no sz activity despite periodic shaking jerking movements likely Delirium
-Psych consult appreciated cont risperidone 0.25 mg BID tapered to HS + BIDPRN
-Neurology consult appreciated
-LP 01/19/2024. Results reviewed. Not consistent with meningitis. Meningitis panel neg
-MRI contraindicated d/t severe claustrophobia, sedatives likely will worsen mental status
-GI eval appreciated cont lactulose xifaxan
-Cont Aldactone 50 mg daily Lasix 80 mg daily (Lasix Aldactone briefly held d/t hypotension, wt at all time low, poor oral intake with confusion delirium, gentle IV hydration, albumin bolus given 01/22/24 01/24/24, midodrine started continue)
-Paracentesis attempted 01/21 but small volume ascites insufficient for drainage.
Pleural effusion noted on abdominal ultrasound
-IR eval appreciated Left thoracentesis 01/16 750 cc pleural fluid transudate (likely 2/2 cirrhosis) fluid cx neg
-post-thoracentesis CXR noted stable Lt apical pneumothorax and stable small loculated Lt pleural effusion
-Report CXR notes enlargement effusion along with atelectasis, stable respiratory status at this time room air, incentive spirometer ordered
Pancytopenia secondary to underlying cirrhosis
-appears stable at this time
-Outpatient hematology follow-up recommended
Chronic Hyponatremia due to underlying cirrhosis. Fluid restrict.
Hypokalemia
-monitor and replete as necessary
-resolved at this time
Hx Diabetes type 2 with hyperglycemia.
-Home Pioglitazone discontinued d/t contraindication cirrhosis
-Farxiga started this hospitalization, placed on hold d/t poor oral intake 2/2 confusion delirium as above
-Continue SSI
-notably recent A1c wnl 5.4 01/15/24, past A1c noted here consistently Prediabetic <6.5
hx HLD
lipid panel appreciated wnl
home statin put on hold, possibly contributing to confusion
Chronic Back Pain
lidocaine patch
home tramadol resumed at reduced dose, morphine prn severe breakthrough pain
Vit B6 deficiency
Supplementation started, cont
Copper Ceruloplasmin lvls wnl
DNR/DNI
Stable for downgrade to Med/surg
Discussed with patient and patient's Deepa
I spent a total of 50 minutes with the patient or on the floor. More than 50% of this time involved counseling and coordination of care.
Anticipated Discharge: 24 - 48 hours
Subjective/Interval History
-
Date of Service: January 26, 2024
Appears to be improved. Some intermittent confusion persists possible hallucination but mild. Norma present during evaluation
Objective Data
-
Labs:
Laboratory Results
01/26/24
06:41
WBC Pending
Hgb Pending
Hct Pending
Plt Count Pending
Sodium Pending
Potassium Pending
Chloride Pending
Carbon Dioxide Pending
BUN Pending
Creatinine Pending
Glucose Pending
Calcium Pending
Vital Signs:
Vital Signs
Temp Pulse Resp BP Pulse Ox
99.1 F 81 18 115/49 95
01/25/24 23:33 01/25/24 23:33 01/25/24 23:33 01/25/24 23:33 01/25/24 23:33
I&O
01/25/24 01/26/24 01/27/24
06:59 06:59 06:59
Intake Total 1300 / 1300 780 / 780
Output Total 875 / 875 400 / 400
Balance 425 / 425 380 / 380
[2024-01-26 07:39] LABS: Hematocrit 25.9 % (39.0-52.0); Hemoglobin 8.3 g/dL (13.0-18.0); Mean Corpuscular Hgb 27.6 pg (27.0-31.0); Mean Platelet Volume 10.5 fL (7.4-10.4); Platelet Count 98 10^3/uL (130-400); Red Blood Cell Count 3.01 10^6/uL (4.70-6.10); Red Cell Dist. Width 16.6 % (11.5-14.5); White Blood Cell Count 4.8 10^3/uL (4.8-10.8)
[2024-01-26 07:44] VITALS: BP 112/50
[2024-01-26 08:01] LABS: Glucose - Point of Care 201 mg/dl (70-99)
[2024-01-26 08:10] LABS: Blood Urea Nitrogen 17 mg/dl (9-20); Calcium 8.5 mg/dl (8.4-10.2); Carbon Dioxide 26 mmol/L (22-30); Chloride 107 mmol/L (98-107); Estimated Creatinine Clearance 73 ml/min; Glucose 135 mg/dl (70-99); Phosphorus 3.2 mg/dl (2.5-4.5); Sodium 133 mmol/L (135-145); eGFR > 60.00
[2024-01-26] MEDS: NOVOLOG FLEXPEN-LOW RESISTANCE 2 UNITS SC (08:52)
[2024-01-26] MEDS: DUPHALAC/CHRONULAC 20 GRAMS PO ×2 (08:52→21:16)
[2024-01-26] MEDS: FLOMAX 0.4 MG PO (08:53)
[2024-01-26] MEDS: LASIX 80 MG PO (08:53)
[2024-01-26] MEDS: FEOSOL 325 MG PO (08:53)
[2024-01-26] MEDS: LOW STRENGTH ASPIRIN 81 MG PO (08:55)
[2024-01-26] MEDS: MAGNESIUM OXIDE 250 MG PO (08:55)
[2024-01-26] MEDS: PROTONIX 40 MG PO ×2 (08:57→21:16)
[2024-01-26] MEDS: ProAmatine 5 MG PO ×3 (08:57→17:37)
[2024-01-26] MEDS: XIFAXAN 550 MG PO ×2 (08:57→21:16)
[2024-01-26] MEDS: RISPERDAL M-TAB (ORALLY DISINTEGRATING) 0.25 MG PO (08:58)
[2024-01-26] MEDS: VITAMIN B-6 50 MG PO (08:59)
[2024-01-26 11:17] LABS: Glucose - Point of Care 262 mg/dl (70-99)
[2024-01-26] MEDS: ALDACTONE 50 MG PO (12:19)
[2024-01-26] MEDS: LIDOCAINE 4% PATCH 1 PATCH TOPICAL (12:19)
[2024-01-26] MEDS: ULTRAM 25 MG PO (12:20)
[2024-01-26] MEDS: NOVOLOG FLEXPEN-LOW RESISTANCE 3 UNITS SC (12:52)
--- NOTE | 2024-01-26 13:06 | W.PN.UPDATE ---
Update Note
Progress Note Update
patient seen chart reviewed. spoke with nursing and with patient at bedside. mr rasmussen was very pleasant. his confusion does seem to be dissipating although earlier this am nursing thought he may have been talking to someone and there was no
one in the room. he denied to me that he was experiencing auditory hallucinations or visual hallucinations. discussed w cutting back daytime dose of risperdal at this point so tomorrow he will only receive hs dose. will see him over weekend.
--- NOTE | 2024-01-26 14:54 | CM ---
Case management following for discharge planning
[facility] d/c'ed
Received call from Aj Victoria from [facility] - [facility] not medically clear for discharge
Can accept over weekend. Call [phone] for admissions
Plan - Aj Victoria when medically ready
[2024-01-26 15:20] VITALS: BP 102/44
[2024-01-26 16:13] VITALS: BP 98/56; PULSE 80; O2SAT 96
[2024-01-26 16:43] VITALS: BP 98/48; PULSE 75; O2SAT 94
[2024-01-26 16:53] LABS: Glucose - Point of Care 165 mg/dl (70-99)
[2024-01-26] MEDS: NOVOLOG FLEXPEN-LOW RESISTANCE 1 UNITS SC (17:38)
[2024-01-26 21:24] LABS: Glucose - Point of Care 204 mg/dl (70-99)
[2024-01-26 23:00] VITALS: BP 96/47
[2024-01-26 23:43] VITALS: BP 129/46; BP 97/49; BP 98/48; PULSE 74; PULSE 76; PULSE 84
[2024-01-27] VITALS (7 sets, daily range): BP systolic 60–105; BP diastolic 39–50; PULSE 74; BMI 26.9
--- NOTE | 2024-01-27 07:10 | W.PN.HOSP.TC ---
Today's Communication/Plan
-
Risperdal taper as per Psych
Orthostatic Hypotension, albumin bolus increased Midodrine
Increased frequency Tramadol, cont pain control
PT/OT
Encourage Incentive Spirometry use
Assessment / Plan
Assessment / Plan
Physical Exam
General: No acute distress appears comfortable at this time
HEENT: Scleral anicteric EOMI Moist mucous membranes
Neck: JVD
Resp: CTA Bilateral
Cardio: Normal S1-S2 no murmurs
GI: Soft nontender distended bowel sounds present
Ext: No peripheral pitting edema
Neuro: AAOx3
Psych: Calm
73M Cirrhosis HTN DM TAVR restless leg syndrome Obesity HLD p/w AMS Toxic Metabolic Encephalopathy Delirium Hallucinations unclear etiology.
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
-EEG appreciated no sz activity despite periodic shaking jerking movements likely Delirium
-Psych consult appreciated cont risperidone 0.25 mg BID tapered to HS + BIDPRN
-Neurology consult appreciated
-LP 01/19/2024. Results reviewed. Not consistent with meningitis. Meningitis panel neg
-MRI contraindicated d/t severe claustrophobia, sedatives likely will worsen mental status
-GI eval appreciated cont lactulose xifaxan
-Cont Aldactone 50 mg daily Lasix 80 mg daily (Lasix Aldactone briefly held d/t hypotension, wt at all time low, poor oral intake with confusion delirium, gentle IV hydration, albumin bolus given 01/22/24 01/24/24, midodrine started continue)
-Paracentesis attempted 01/21 but small volume ascites insufficient for drainage.
Orthostatic Hypotension
received albumin boluses over the course of hospitalization
midodrine started and titrated up to 10 mg TID w/ holding parameters
cont PT/OT
fall precautions
Pleural effusion noted on abdominal ultrasound
-IR eval appreciated Left thoracentesis 01/16 750 cc pleural fluid transudate (likely 2/2 cirrhosis) fluid cx neg
-post-thoracentesis CXR noted stable Lt apical pneumothorax and stable small loculated Lt pleural effusion
-Report CXR notes enlargement left sided hydropneumothorax associate atelectasis, stable respiratory status at this time room air, incentive spirometer ordered
-Later repeat CXR notes stable hydropneumothorax Mild increased leftward shift of mediastinal structures possible volume loss/atelectasis
Pancytopenia secondary to underlying cirrhosis
-appears stable at this time
-Outpatient hematology follow-up recommended
Chronic Hyponatremia due to underlying cirrhosis. Fluid restrict.
Hypokalemia
-monitor and replete as necessary
-resolved at this time
Hypocalcemia mild
repleted
Hx Diabetes type 2 with hyperglycemia.
-Home Pioglitazone discontinued d/t contraindication cirrhosis
-Farxiga started this hospitalization, placed on hold d/t poor oral intake 2/2 confusion delirium as above
-Continue SSI
-notably recent A1c wnl 5.4 01/15/24, past A1c noted here consistently Prediabetic <6.5
hx HLD
lipid panel appreciated wnl
home statin put on hold, possibly contributing to confusion
Chronic Back Pain
lidocaine patch
home tramadol resumed at reduced dose, morphine prn severe breakthrough pain
Vit B6 deficiency
Supplementation started, cont
Copper Ceruloplasmin lvls wnl
DNR/DNI
Discussed with patient and patient's Deepa
I spent a total of 50 minutes with the patient or on the floor. More than 50% of this time involved counseling and coordination of care.
Anticipated Discharge: 24 - 48 hours
Subjective/Interval History
-
Date of Service: January 27, 2024
No acute distress, reports feeling well. AOx3.
Objective Data
-
Labs:
Laboratory Results
01/27/24
06:26
WBC Pending
Hgb Pending
Hct Pending
Plt Count Pending
Sodium Pending
Potassium Pending
Chloride Pending
Carbon Dioxide Pending
BUN Pending
Creatinine Pending
Glucose Pending
Calcium Pending
Vital Signs:
Vital Signs
Temp Pulse Resp BP Pulse Ox
98.4 F 71 14 105/47 93
01/26/24 23:00 01/27/24 03:00 01/26/24 23:00 01/27/24 03:00 01/26/24 23:00
I&O
01/26/24 01/27/24 01/28/24
06:59 06:59 06:59
Intake Total 780 / 780 720 / 720
Output Total 400 / 400 525 / 525
Balance 380 / 380 195 / 195
[2024-01-27 08:08] LABS: Glucose - Point of Care 164 mg/dl (70-99)
[2024-01-27 08:14] LABS: Hematocrit 25.6 % (39.0-52.0); Hemoglobin 8.4 g/dL (13.0-18.0); Mean Corp Hgb Conc. 32.8 g/dL (33.0-37.0); Mean Corpuscular Hgb 28.4 pg (27.0-31.0); Mean Corpuscular Volume 86.5 fL (80.0-94.0); Mean Platelet Volume 10.5 fL (7.4-10.4); Platelet Count 95 10^3/uL (130-400); Red Blood Cell Count 2.96 10^6/uL (4.70-6.10); Red Cell Dist. Width 16.6 % (11.5-14.5); White Blood Cell Count 5.1 10^3/uL (4.8-10.8)
[2024-01-27 08:45] LABS: Blood Urea Nitrogen 15 mg/dl (9-20); Calcium 8.2 mg/dl (8.4-10.2); Carbon Dioxide 27 mmol/L (22-30); Chloride 103 mmol/L (98-107); Estimated Creatinine Clearance 73 ml/min; Glucose 124 mg/dl (70-99); Magnesium 1.7 mg/dl (1.6-2.3); Phosphorus 3.5 mg/dl (2.5-4.5); Potassium 4.2 mmol/L (3.5-5.1); Sodium 132 mmol/L (135-145); eGFR > 60.00
[2024-01-27] MEDS: FLOMAX 0.4 MG PO (08:55)
[2024-01-27] MEDS: ProAmatine 5 MG PO ×2 (08:55→12:52)
[2024-01-27] MEDS: NOVOLOG FLEXPEN-LOW RESISTANCE 1 UNITS SC ×2 (08:55→12:49)
[2024-01-27] MEDS: PROTONIX 40 MG PO ×2 (08:55→20:36)
[2024-01-27] MEDS: MAGNESIUM OXIDE 250 MG PO (08:55)
[2024-01-27] MEDS: LASIX 80 MG PO (08:56)
[2024-01-27] MEDS: XIFAXAN 550 MG PO ×2 (08:56→20:35)
[2024-01-27] MEDS: LOW STRENGTH ASPIRIN 81 MG PO (08:56)
[2024-01-27] MEDS: DUPHALAC/CHRONULAC 20 GRAMS PO ×2 (08:56→20:35)
[2024-01-27] MEDS: FEOSOL 325 MG PO (08:56)
[2024-01-27] MEDS: LIDOCAINE 4% PATCH 1 PATCH TOPICAL (08:56)
[2024-01-27] MEDS: VITAMIN B-6 50 MG PO (08:56)
[2024-01-27] MEDS: ULTRAM 25 MG PO ×3 (09:05→20:35)
--- NOTE | 2024-01-27 10:39 | W.PN.UPDATE ---
Update Note
Progress Note Update
Patient is doing well, oriented in all spheres, not agitated.
Risperdal is being gradually reduced, tonight is only on 0.25 mg.
Will F/U again tomorrow, if stable will D/C the Risperdal.
--- NOTE | 2024-01-27 11:53 | PTCARENOTE ---
Morning assessment pt was awake alert person place and year. He knew who the president was and at [facility]. PT denied any auditory or visual halluciations. he was flat and slightly withdrawn but awake. PT did complain of pain, ultram
given. PT relieved at first. Pt now complaining of 5/10 pain in back, at bedside telling me and him that his pain is worse than five. at bedside told me that I should not listen to anything the patient states because he is confused. She
is requesting i give the IV morphine. I explained this is not matching my assessments. and patient both told me earlier this am that prior to this event, he was at home aaox3 no issues with chronic pain only. I did contact MD and he is
increasing the fq of ultram to QID and doseage. orthos daily ordered. they were 98/46 lying 60/39 sitting on automatic. Pt denied any dizziness, cp or palpitations. Quickly checked a manual for 80/40. PT placed back to bed Md aware. Ordered
IV albumin . When taking pills pt did cough and said a pill got stuck, he had course bs in bases yellow sputum and prior CXR with hydropneumothorax. MD made aware, ordered CXR and speech consult. at bedside
[2024-01-27 12:41] LABS: Glucose - Point of Care 191 mg/dl (70-99)
[2024-01-27] MEDS: FLEXBUMIN 100 IV (12:50)
[2024-01-27] MEDS: ALDACTONE PO (12:52)
[2024-01-27 16:58] LABS: Glucose - Point of Care 294 mg/dl (70-99)
[2024-01-27] MEDS: NOVOLOG FLEXPEN-LOW RESISTANCE 3 UNITS SC (17:07)
[2024-01-27] MEDS: ProAmatine 10 MG PO (17:08)
[2024-01-27 21:37] LABS: Glucose - Point of Care 178 mg/dl (70-99)
[2024-01-27] MEDS: RISPERDAL M-TAB (ORALLY DISINTEGRATING) 0.25 MG PO (21:54)
[2024-01-28 06:00] VITALS: BMI 27.8
[2024-01-28 07:10] VITALS: BP 102/47
[2024-01-28 07:39] LABS: Glucose - Point of Care 160 mg/dl (70-99)
--- NOTE | 2024-01-28 07:52 | W.PN.HOSP.TC ---
Today's Communication/Plan
-
Risperdal tapered off as per Psych, prn remains available
Cont Midodrine 10 mg TID w/ holding parameters
Tramadol titrated back up to home regimen
PT/OT
Encourage Incentive Spirometry use
Check CT thoracic Lumbar Spine
Assessment / Plan
Assessment / Plan
Physical Exam
General: No acute distress appears comfortable at this time
HEENT: Scleral anicteric EOMI Moist mucous membranes
Neck: JVD
Resp: CTA Bilateral
Cardio: Normal S1-S2 no murmurs
GI: Soft nontender distended bowel sounds present
Ext: No peripheral pitting edema
Neuro: AAOx3
Psych: Calm
73M Cirrhosis HTN DM TAVR restless leg syndrome Obesity HLD p/w AMS Toxic Metabolic Encephalopathy Delirium Hallucinations unclear etiology.
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
-EEG appreciated no sz activity despite periodic shaking jerking movements likely Delirium
-Psych consult appreciated scheduled risperidone 0.25 mg BID tapered off, BIDPRN remains available.
-Neurology consult appreciated
-LP 01/19/2024. Results reviewed. Not consistent with meningitis. Meningitis panel neg
-MRI contraindicated d/t severe claustrophobia, sedatives likely will worsen mental status
-GI eval appreciated cont lactulose xifaxan
-Cont Aldactone 50 mg daily Lasix 80 mg daily (Lasix Aldactone briefly held d/t hypotension, wt at all time low, poor oral intake with confusion delirium, gentle IV hydration, albumin bolus given 01/22/24 01/24/24, midodrine started continue,
patient since improved off IVF)
-Paracentesis attempted 01/21 but small volume ascites insufficient for drainage.
Orthostatic Hypotension
received albumin boluses over the course of hospitalization
midodrine started and titrated up to 10 mg TID w/ holding parameters
cont PT/OT
fall precautions
Pleural effusion noted on abdominal ultrasound
-IR eval appreciated Left thoracentesis 01/16 750 cc pleural fluid transudate (likely 2/2 cirrhosis) fluid cx neg
-post-thoracentesis CXR noted stable Lt apical pneumothorax and stable small loculated Lt pleural effusion
-Report CXR notes enlargement left sided hydropneumothorax associate atelectasis, stable respiratory status at this time room air, incentive spirometer ordered
-Later repeat CXR notes stable hydropneumothorax Mild increased leftward shift of mediastinal structures possible volume loss/atelectasis
Pancytopenia secondary to underlying cirrhosis
-appears stable at this time
-Outpatient hematology follow-up recommended
Chronic Hyponatremia due to underlying cirrhosis. Fluid restrict.
Hypokalemia
-monitor and replete as necessary
-resolved at this time
Hypocalcemia mild
repleted
Hx Diabetes type 2 with hyperglycemia.
-Home Pioglitazone discontinued d/t contraindication cirrhosis
-Farxiga started this hospitalization, placed on hold d/t poor oral intake 2/2 confusion delirium as above
-Continue SSI
-notably recent A1c wnl 5.4 01/15/24, past A1c noted here consistently Prediabetic <6.5
hx HLD
lipid panel appreciated wnl
home statin put on hold, possibly contributing to confusion
Chronic Back Pain
lidocaine patch
home tramadol resumed at reduced dose titrated up back to home regiment 50 mg QIDPRN, morphine prn severe breakthrough pain (has not required)
reports patient had outpatient back procedure done 12/26 (possibly epidural steroid injection) due for follow up repeat given lack of improvement, canceled d/t current hospitalization
check CT Thoracic Lumbar spine
If pain control does not improve, could potentially discuss with IR to have procedure done here prior to discharge, exact procedure performed needs be confirmed however.
Vit B6 deficiency
Supplementation started, cont
Copper Ceruloplasmin lvls wnl
DNR/DNI
Discussed with patient and patient's Deepa
I spent a total of 50 minutes with the patient or on the floor. More than 50% of this time involved counseling and coordination of care.
Anticipated Discharge: 24 - 48 hours
Subjective/Interval History
-
Date of Service: January 28, 2024
Mental status improved, mildly confused at times as per at bedside but otherwise hallucinations appear to have resolved. AOx3, reporting significant back pain, improved with prn Tramadol
Objective Data
-
Vital Signs:
Vital Signs
Temp Pulse Resp BP Pulse Ox
98.8 F 75 17 102/47 95
01/28/24 07:10 01/28/24 07:10 01/28/24 07:10 01/28/24 07:10 01/28/24 07:10
I&O
01/27/24 01/28/24 01/29/24
06:59 06:59 06:59
Intake Total 720 / 720 460 / 460
Output Total 525 / 525 1520 / 1520
Balance 195 / 195 -1060 / -1060
[2024-01-28] MEDS: PROTONIX 40 MG PO ×2 (09:06→20:39)
[2024-01-28] MEDS: ProAmatine 10 MG PO ×3 (09:07→17:07)
[2024-01-28] MEDS: LOW STRENGTH ASPIRIN 81 MG PO (09:07)
[2024-01-28] MEDS: MAGNESIUM OXIDE 250 MG PO (09:07)
[2024-01-28] MEDS: FEOSOL 325 MG PO (09:07)
[2024-01-28] MEDS: DUPHALAC/CHRONULAC 20 GRAMS PO ×2 (09:08→20:39)
[2024-01-28] MEDS: FLOMAX 0.4 MG PO (09:08)
[2024-01-28] MEDS: XIFAXAN 550 MG PO ×2 (09:08→20:39)
[2024-01-28] MEDS: LIDOCAINE 4% PATCH 1 PATCH TOPICAL (09:08)
[2024-01-28] MEDS: NOVOLOG FLEXPEN-LOW RESISTANCE 1 UNITS SC (09:08)
[2024-01-28] MEDS: LASIX 80 MG PO (09:08)
[2024-01-28] MEDS: VITAMIN B-6 50 MG PO (09:09)
[2024-01-28] MEDS: ULTRAM 25 MG PO ×3 (09:23→17:11)
[2024-01-28 10:54] VITALS: BP 100/47; BP 101/47; BP 104/48; PULSE 75; PULSE 77; PULSE 83
[2024-01-28 11:41] LABS: Glucose - Point of Care 240 mg/dl (70-99)
[2024-01-28] MEDS: ALDACTONE 50 MG PO (13:07)
[2024-01-28] MEDS: NOVOLOG FLEXPEN-LOW RESISTANCE 2 UNITS SC ×2 (13:07→17:07)
--- NOTE | 2024-01-28 13:24 | W.PN.UPDATE ---
Update Note
Progress Note Update
Patient is doing better, denies any psychotic symptoms, not responding to internal stimuli. Still vry much complains of backpain.
At this point I would stop the Risperdal standing dose.
Discussed with as well.
--- NOTE | 2024-01-28 13:54 | PTCARENOTE ---
PT awake alert x3 able to make needs known, pt with slurred speech noted, PT did complain of moderate back pain, tramadol given as per md order. He appeared comfortable. However, after getting him out of bed to chair ( 1.5 hours after
administration of medication) he had severe back pain. MD in room witnessed pain and ordered a one time tramadol. This was given. pt now without pain and is resting. HRR +PP trace edema + systolic murmur s1 s2, no s3 no s4, pt denies CP or
palpitations. Lungs dec clear shallow breathes iwth occ NPC. pt denies any sob or GU. pt uses IS that is at bedside. Abd soft NT ND +BS pt with large BM today. urine yellow clear with some stress incontince , brief on. ORtho BP completed
104-101 -102, pt was assisted with one assist OOB with walker to Bathroom. pt steady with assistance. PT assisted back to chair and is sitting in chair. CT scan of thoracic and lumbar spine ordered. is at bedside. pt sleeping call doshi in hand
.
[2024-01-28 14:57] VITALS: BP 94/46
[2024-01-28 16:03] VITALS: BP 92/39; BP 96/40; PULSE 68; O2SAT 97
[2024-01-28 16:41] LABS: Glucose - Point of Care 200 mg/dl (70-99)
[2024-01-28 21:38] LABS: Glucose - Point of Care 226 mg/dl (70-99)
[2024-01-28 22:52] VITALS: BP 105/49
[2024-01-29 06:44] LABS: Hematocrit 24.6 % (39.0-52.0); Hemoglobin 8.4 g/dL (13.0-18.0); Mean Corp Hgb Conc. 34.1 g/dL (33.0-37.0); Mean Corpuscular Volume 84.8 fL (80.0-94.0); Mean Platelet Volume 10.3 fL (7.4-10.4); Platelet Count 100 10^3/uL (130-400); Red Cell Dist. Width 16.9 % (11.5-14.5); White Blood Cell Count 5.4 10^3/uL (4.8-10.8)
[2024-01-29 07:34] LABS: ALT (SGPT) 27 U/L (0-50); AST (SGOT) 60 U/L (17-59); Albumin 2.3 g/dl (3.5-5.0); Alkaline Phosphatase 171 U/L (38-126); Blood Urea Nitrogen 15 mg/dl (9-20); Carbon Dioxide 28 mmol/L (22-30); Chloride 98 mmol/L (98-107); Estimated Creatinine Clearance 84 ml/min; Glucose 123 mg/dl (70-99); Magnesium 1.8 mg/dl (1.6-2.3); Sodium 129 mmol/L (135-145); Total Bilirubin 2.2 mg/dl (0.2-1.3); Total Protein 5.5 g/dl (6.3-8.2); eGFR > 60.00
--- NOTE | 2024-01-29 07:48 | W.PN.HOSP.TC ---
Today's Communication/Plan
-
.
Assessment / Plan
Assessment / Plan
73M Cirrhosis HTN DM TAVR restless leg syndrome Obesity HLD p/w AMS Toxic Metabolic Encephalopathy Delirium Hallucinations unclear etiology.
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
� EEG showed no seizure activity
� Previously on scheduled risperidone 0.25 mg twice daily. Psychiatry recommended stopping medication.
�Outpatient neuropsychiatry follow-up recommended.
� LP on ormal, meningitis panel negative
� MRI contraindicated due to claustrophobia, recommend open MRI
� GI evaluation completed. Recommendation to continue lactulose and Xifaxan.
� Continue Aldactone 50 mg daily, Lasix 80 mg daily
� Paracentesis attempted on 01/21, aborted due to small volume ascites.
Orthostatic hypotension
� Albumin bolus received
� Midodrine titrated to 10 mg 3 times daily
� Continue PT OT
� Continue fall precautions. Patient to be discharged to [facility] per case management.
Pancytopenia
� Likely secondary to cirrhosis
� Stable. Continue to monitor
� Outpatient follow-up with hematology
Chronic hyponatremia due to underlying cirrhosis. Fluid restriction recommended
Hypokalemia
-monitor and replete as necessary
-resolved at this time
Hypocalcemia mild
repleted
Type 2 diabetes with hyperglycemia
� Home pioglitazone discontinued due to contraindication with cirrhosis
� Farxiga started during hospitalization, case management priced out for home continuation.
� Continue SSI
� Most recent A1c was 5.4 on 01/14, past A1c consistently prediabetic less than 6.5
� Continue to monitor outpatient
Hyperlipidemia
� Lipid panel within normal limits
�Home statin on hold during admission, possibly contributing to confusion
� Resume upon discharge, confusion resolved.
Chronic Back Pain
�Patient using 4% lidocaine patches as needed
� Continue tramadol 50 mg 4 times daily
� CT thoracic lumbar spine shows L4 compression fracture, height shorter than on 1
� Recommended follow-up with orthopedics outpatient. Consult placed
Vit B6 deficiency
�Continue vitamin B6 supplementation
Copper Ceruloplasmin level within normal limit
DNR/DNI
Anticipated Discharge: Today
Subjective/Interval History
-
Date of Service: January 29, 2024
Patient reports feeling well today. No acute overnight events, no hallucinations/SI/HI, no aggression or confusion. Patient reports ongoing progressive back pain, currently poorly managed with lidocaine patches and tramadol. No headaches, chest
pain, shortness of breath, nausea, vomiting, diarrhea, numbness or tingling in lower extremities.
Objective Data
-
Labs:
Laboratory Results
01/29/24
05:24
WBC 5.4
Hgb 8.4 L
Hct 24.6 L
Plt Count 100 L
Sodium 129 L
Potassium 4.0
Chloride 98
Carbon Dioxide 28
BUN 15
Creatinine 0.7
Glucose 123 H
Calcium 8.0 L
Total Bilirubin 2.2 H
AST 60 H
ALT 27
Alkaline Phosphatase 171 H
Vital Signs:
Vital Signs
Temp Pulse Resp BP Pulse Ox
98.3 F 75 14 105/49 96
01/28/24 22:52 01/28/24 22:52 01/28/24 22:52 01/28/24 22:52 01/28/24 22:52
I&O
01/28/24 01/29/24 01/30/24
06:59 06:59 06:59
Intake Total 460 / 460 450 / 450 240 / 240
Output Total 1520 / 1520 350 / 350 650 / 650
Balance -1060 / -1060 100 / 100 -410 / -410
Review of Systems
-
History Source: Patient
Constitutional: Reports Fatigue and Weakness
EENT: Reports No Symptoms Reported
Respiratory: Reports No Symptoms
Cardiac: Reports No Symptoms
Abdomen/GI: Reports No Symptoms
Genitourinary: Reports No Symptoms
Musculoskeletal: Reports Other (Back pain)
Skin: Reports No Symptoms
Neuro: Reports No Symptoms
Physical Exam
-
General: Well Developed, Well Nourished, No Apparent Distress, Comfortable and Conversant
HEENT: Normocephalic, Atraumatic and Moist Mucous Membranes
Respiratory: Clear to Auscultation
Cardiac: Regular Rhythm and S1/S2
GI: Soft, Nontender, Normal Bowel Sounds and Distended
Musculoskeletal: No Clubbing, No Cyanosis and No Edema
Skin: Warm and Dry
Neuro: AO x 3
Psych: Calm and Intact Judgement/Insight
Data Reviewed
-
Total Time Spent with Patient (in minutes): 30
CT Scan: Report Reviewed by me and Discussed with Physician
Labs: Labs Reviewed by me and Discussed with Physician
Old Records: Reviewed
[2024-01-29 07:57] VITALS: BP 96/46
[2024-01-29 08:19] LABS: Glucose - Point of Care 131 mg/dl (70-99)
[2024-01-29] MEDS: NOVOLOG FLEXPEN-LOW RESISTANCE SC (08:33)
[2024-01-29] MEDS: LIDOCAINE 4% PATCH 1 PATCH TOPICAL (08:35)
[2024-01-29] MEDS: DUPHALAC/CHRONULAC 20 GRAMS PO (08:35)
[2024-01-29] MEDS: PROTONIX 40 MG PO (08:35)
[2024-01-29] MEDS: MAGNESIUM OXIDE 250 MG PO (08:36)
[2024-01-29] MEDS: FARXIGA 10 MG PO (08:36)
[2024-01-29] MEDS: FLOMAX 0.4 MG PO (08:36)
[2024-01-29] MEDS: VITAMIN B-6 50 MG PO (08:37)
[2024-01-29] MEDS: FEOSOL 325 MG PO (08:37)
[2024-01-29] MEDS: XIFAXAN 550 MG PO (08:37)
[2024-01-29] MEDS: ProAmatine 10 MG PO ×2 (08:39→12:50)
[2024-01-29] MEDS: LOW STRENGTH ASPIRIN 81 MG PO (08:41)
[2024-01-29] MEDS: LASIX 80 MG PO (09:50)
[2024-01-29 10:19] VITALS: BMI 27.9
[2024-01-29 10:48] VITALS: BP 78/41; BP 92/48; BP 95/45; PULSE 70; PULSE 73; PULSE 80
--- NOTE | 2024-01-29 11:11 | CM ---
Addendum entered by Rosa Miller 01/29/24 15:30:
Discussed IMM
Facility notified of discharge time - LM for Mehreen on VM
Original Note:
Case management following for discharge planning
Notified by Dr Juarez - pt medically ready for discharge
Called [facility] at [facility] [phone] - [email or web address]
Discussed transport with pt and his at bedside - will transport
Plan - anticipate transfer to [facility]
R - [phone]
F - [phone]
[2024-01-29 11:32] LABS: Glucose - Point of Care 182 mg/dl (70-99)
[2024-01-29] MEDS: ALDACTONE 50 MG PO (12:50)
[2024-01-29] MEDS: NOVOLOG FLEXPEN-LOW RESISTANCE 1 UNITS SC (12:51)
[2024-01-29 14:56] VITALS: BP 105/52
--- NOTE | 2024-01-29 16:42 | W.DCSUMMARY ---
Discharge Summary
Discharge Data
Date of Admission: 01/14/24
Date of Discharge: 01/29/24
Total time spent discharging patient (in min): 30
-
Pending Results: No
Hospital Course
Hospital diagnosis: Hepatic encephalopathy
Diagnosis prior to admission:
Metabolic dysfunction
MASH cirrhosis with ascites
History of hepatic encephalopathy
Pancytopenia
Essential hypertension
DM2
GERD
Restless leg syndrome
Severe aortic stenosis
Hyperlipidemia
Recurrent left pleural effusion
Hospital course: Patient is a 73-year-old male with a history of metabolic dysfunction with associated steatohepatitis and cirrhosis who presented to [facility] with increasing confusion, fatigue, abdominal distention and hallucinations.
His cirrhosis is managed by Dr. Cross at [facility]. His altered mental status likely secondary to multifactorial hepatic encephalopathy versus undiagnosed dementia. EEG showed no seizure activity. Psychiatry had patient on 0.25 mg twice
daily scheduled risperidone for management of hallucinations and altered mental status. Medication was stopped this weekend because patient is no longer having AMS or hallucinations. Outpatient neuropsychiatry follow-up was recommended. Lumbar
puncture on 01/18 was negative and meningitis panel was negative. Patient was unable to get an MRI due to claustrophobia and agitation while altered. GI recommended resuming lactulose and Xifaxan, continue at home as well. Aldactone and Lasix was
continued. Paracentesis was attempted on 01/21 but aborted due to small volume ascites. Patient most recently had a paracentesis in December at [facility]. For patient's orthostatic hypotension, patient was given albumin and midodrine was
titrated to 10 mg 3 times daily. Recommendation made to [facility] and [facility] precautions. Patient also noted progressing back pain during admission, managed with 4% lidocaine patches as needed and tramadol 50 mg [address] thoracic lumbar spine showed L4 compression fracture and height shorter than on 01/17. Recommended follow-up with orthopedics outpatient. Vitamin B6 deficiency identified and supplementation started. Patient's type 2 diabetes with
hyperglycemia was managed with Martita NEWMAN. Home pioglitazone discontinued due to contraindication with cirrhosis. Most recent A1c was 5.4 on 01/14, past A1c consistently prediabetic less than 6.5. Continue to monitor outpatient with primary
care. Lipid panel within normal limits, Home statin held during admission, possibly contributing to confusion. Resume statin upon discharge. At time of discharge patient was no longer altered or hallucinating, he understood where he was and where
he was going.
Data analyzed during stay
� 8/1�CT abdomen pelvis�There is a left hydropneumothorax in the visualized left lower chest, as described. Small to moderate amount of ascites present, mainly in the right upper quadrant adjacent to the liver, as well as within the right inferior
pelvis and central pelvis. Cirrhotic liver with splenomegaly and prominent varices. There is no CT evidence for an enhancing hepatic mass lesion, with no findings to suggest hepatocellular carcinoma. Although limited by motion, suggestion of a small
enhancing mass arising in the posterior right mid kidney. When the patient can better cooperate with breath-holding, a follow-up CT of the abdomen is recommended without and with contrast, with attention to the kidneys. Moderate compression fracture
involving L4, morphologic appearance suggests that this is acute to subacute, and is a new finding since CT of September 28, 2022. Slight retropulsion of the posterior and superior margin of L4. Evaluation of the rest of the spine is limited by
significant motion on reconstructions. Moderate amount of subcutaneous edema, greatest within the lateral abdomen bilaterally.
-85�abdomen ultrasound�small volume of ascites not sufficient for percutaneous drainage
� 7�chest x-ray�Left-sided hydropneumothorax with increased fluid component and associated left mid/lower lung atelectasis. There is similar appearance of the gaseous component.
- 10�chest x-ray�No significant change in known left hydropneumothorax. Mild, increased leftward shift of mediastinal structures raising the possibility of an underlying element of volume loss/atelectasis.
�01/28�lumbar spine CT- Acute appearing compression fracture of L4, also seen on the CT imaging from 01/18/2024. However, since 01/18/2024, there has been slight interval increase in height loss centrally which now measures up to 50%. Retropulsion is
relatively unchanged and results in moderate spinal canal narrowing. No new acute osseous abnormality in the lumbar spine.Stable chronic L1 compression deformity with approximately 30% vertebral body height loss. No acute osseous abnormality of the
thoracic spine. Thoracolumbar spondylosis as detailed above. Heterogeneous and enlarged left thyroid lobe with at least one nodule measuring 1.2 cm. Routine, nonemergent outpatient thyroid ultrasound could be performed for further evaluation if
clinically indicated. Stable small left hydropneumothorax. Cholelithiasis.
-oracic spine CT�Acute appearing compression fracture of L4, also seen on the CT imaging from 01/18/2024. However, since 01/18/2024, there has been slight interval increase in height loss centrally which now measures up to 50%. Retropulsion is
relatively unchanged and results in moderate spinal canal narrowing. No new acute osseous abnormality in the lumbar spine. Stable chronic L1 compression deformity with approximately 30% vertebral body height loss. No acute osseous abnormality of the
thoracic spine. Thoracolumbar spondylosis as detailed above. Heterogeneous and enlarged left thyroid lobe with at least one nodule measuring 1.2 cm. Routine, nonemergent outpatient thyroid ultrasound could be performed for further evaluation if
clinically indicated. Stable small left hydropneumothorax. Cholelithiasis.
Discharge Plan
-
Patient Disposition: Care Home/SNF
Discharge Diagnosis/Procedures: Hepatic Encephalopathy
Condition: Fair
Additional Diets: 1800 calorie, 15g diabetic carb diet
Activity: With assistance and As tolerated
Driving Restrictions: As prior to admission
Bathing Restrictions: None
Activity Restrictions/Additional Instructions:
Follow up with Neurology and Neuropsychiatry 1 month of discharge for further evaluation dementia.
Follow up with Orthopedics outpatient for further evaluation of compression fracture at L4
Referrals:
Sekou Rivera DO [Active] - in two to four weeks
Murphy Ríos, [Family Provider] - in one week
Catrachito Graves PSY [Specified Professional Personl] - in one month
Raimundo Hebert MD [Active] - in one month
Rex Nova MD [Active] - in one to two weeks
Additional Discharge Medication Instructions: Please only wear lidocane patch for 12 hours at a time
Prescriptions:
New
dapagliflozin propanediol 10 mg Tablet
10 mg PO DAILY 30 Days Qty: 30 2RF
lidocaine 4 % Adhesive Patch,Medicated
1 patch topical DAILY 30 Days Qty: 30 2RF
midodrine 5 mg Tablet
10 mg PO TID@0800,1300,1800 Qty: 30 2RF
pantoprazole 40 mg Tablet,Delayed Release (Dr/Ec)
40 mg PO DAILY 30 Days Qty: 30 2RF
spironolactone 50 mg Tablet
50 mg PO NOON 30 Days Qty: 30 2RF
pyridoxine (vitamin B6) 50 mg Tablet
50 mg PO DAILY 30 Days Qty: 30 2RF
Continued
tamsulosin 0.4 mg Capsule
0.4 mg PO DAILY
magnesium 250 mg Tablet
250 mg PO DAILY
aspirin 81 mg tablet,chewable
81 mg PO DAILY Qty: 1 0RF
rosuvastatin 20 mg tablet
20 mg PO DAILY
furosemide 40 mg tablet
80 mg PO DAILY
ferrous sulfate 325 mg (65 mg iron) tablet
325 mg PO DAILY
Xifaxan 550 mg Tablet
550 mg PO BID Qty: 60 0RF
tramadol 50 mg Tablet
50 mg PO Q6HPRN PRN (Reason: severe pain)
fluoxetine 20 mg Capsule
20 mg PO DAILY
Discontinued
omeprazole 20 MG capsule,delayed release(DR/EC)
20 mg PO DAILY
pioglitazone 15 MG tablet
15 mg PO DAILY
spironolactone 25 mg tablet
25 mg PO NOON
Discharge Orders:
Discharge Patient (As Directed); Ordered 01/29/24
Ordered By: Holden Juarez
Discharge Date and Time
Discharge Date/Time: 01/29/24 14:50
Print Language: POLISH
== END 2024-01-29 14:50 | DRG 441 ==
LOC: 3 WEST ACU 17:20
PROVIDERS: Internal Medicine; Physician Assistant; Radiology Diagnostic Radiology; Radiology Vascular & Interventional Radiology; Student in an Organized Health Care Education/Training Program; ADMITTING PHYSICIAN Hospitalist; ATTENDING PHYSICIAN Hospitalist; CONSULT PHYSICIAN Internal Medicine; CONSULT PHYSICIAN Internal Medicine Hospice and Palliative Medicine; CONSULT PHYSICIAN Psychiatry & Neurology Neurology; CONSULT PHYSICIAN Psychiatry & Neurology Psychiatry; EMERGENCY PHYSICIAN Emergency Medicine; FAMILY PHYSICIAN Family Medicine
PROC: 0W9G3ZZ Drainage of Peritoneal Cavity, Percutaneous Approach (ICD-10-PCS; 2024-01-17)
PROC: 0W9B3ZZ Drainage of Left Pleural Cavity, Percutaneous Approach (ICD-10-PCS; 2024-01-17)
PROC: 009U3ZX Drainage of Spinal Canal, Percutaneous Approach, Diagnostic (ICD-10-PCS; 2024-01-19)
DX: K76.82 Hepatic encephalopathy (principal); G92.8 Other toxic encephalopathy; D61.818 Other pancytopenia; R18.8 Other ascites; J90 Pleural effusion, not elsewhere classified; M48.56XA Collapsed vertebra, not elsewhere classified, lumbar region, initial encounter for fracture; F05 Delirium due to known physiological condition; E87.1 Hypo-osmolality and hyponatremia; K76.6 Portal hypertension; J98.11 Atelectasis; J93.83 Other pneumothorax; K75.81 Nonalcoholic steatohepatitis (NASH); K74.60 Unspecified cirrhosis of liver; I10 Essential (primary) hypertension; K21.9 Gastro-esophageal reflux disease without esophagitis; G25.81 Restless legs syndrome; I35.0 Nonrheumatic aortic (valve) stenosis; F40.240 Claustrophobia; E11.65 Type 2 diabetes mellitus with hyperglycemia; R16.1 Splenomegaly, not elsewhere classified; E87.6 Hypokalemia; R44.1 Visual hallucinations; Z79.82 Long term (current) use of aspirin; Z79.84 Long term (current) use of oral hypoglycemic drugs; Z95.2 Presence of prosthetic heart valve
CPT/HCPCS: 88305; 32555; 49083; 62328; 70450; 71045; 71046; 72128; 72131; 74178; 76705; 80048; 80053; 80061; 80076; 81003; 82042; 82140; 82248; 82390; 82525; 82550; 82565; 82607; 82728; 82746; 82945; 82962; 83036; 83615; 83735; 83986; 84100; 84157; 84207; 84443; 84478; 85025; 85027; 85610; 85652; 85730; 86850; 86900; 86901; 87015; 87070; 87205; 87483; 88112; 89051; 93005; 93975; 95816; 96361; 96374; 96375; 97110; 97116; 97163; 97166; 97530; 97535; 99285; P9047; Q9967